=== PATIENT | male | born 1950 | race Caucasian/White ===

== ENCOUNTER → 2017-09-19 06:55 | Outpatient (CLI) | payer MEDICARE, SELFPAY ==
[2017-09-19 08:33] LABS: AST(SGOT) 15 U/L (15-37); Alanine Aminotransfer ALT/SGPT 29 U/L (16-61); Alkaline Phosphatase 48 U/L (45-117); Bilirubin, Direct 0.14 mg/dL (0.00-0.30); Cholesterol 218 mg/dL (200); Globulin 3.5 g/dL (2.2-4.2); High Density Lipoprotein 40 mg/dL; Protein, Total 7.5 g/dL (6.4-8.2); Triglycerides 265 mg/dL; Very Low Density Lipoprotein 53 mg/dL (5-40)
== END ==
PROVIDERS: Visit Provider Internal Medicine Cardiovascular Disease
DX: R94.31 Abnormal electrocardiogram [ECG] [EKG] (principal); R01.1 Cardiac murmur, unspecified; I34.0 Nonrheumatic mitral (valve) insufficiency; I10 Essential (primary) hypertension
CPT/HCPCS: 36415; 80061; 80076

== ENCOUNTER → 2018-06-06 07:39 | Outpatient (CLI) | payer MEDICARE, SELFPAY ==
[2018-06-06 09:09] LABS: AST(SGOT) 18 U/L (15-37); Alanine Aminotransfer ALT/SGPT 30 U/L (16-61); Alkaline Phosphatase 46 U/L (45-117); Bilirubin, Direct 0.17 mg/dL (0.00-0.30); Cholesterol 214 mg/dL (200); Globulin 3.5 g/dL (2.2-4.2); High Density Lipoprotein 37 mg/dL; Protein, Total 7.5 g/dL (6.4-8.2); Triglycerides 242 mg/dL; Very Low Density Lipoprotein 48 mg/dL (5-40)
--- OUTSIDE RECORDS SUMMARY | 2018-08-10 14:41 | XMS RPT_ITS ---
:1950 Author Organization OH[facility] Care Team Providers Name Role Phone CARLTON CARDONA (PA) Attending Unavailable JUAN MANUEL DAMON Admitting Unavailable JUAN MANUEL DAMON Attending Unavailable CARLTON CARDONA (KIRBY) Referring Unavailable Dario Oh Attending Unavailable Dario Oh Referring Unavailable Primay Care Physicia, No Primary Care Unavailable Kavita Hanna Attending Unavailable Dario Oh Attending Unavailable Dario Oh Referring Unavailable Primay Care Physicia, No Primary Care Unavailable Dario Oh Attending Unavailable Primay Care Physicia, No Referring Unavailable Primay Care Physicia, No Primary Care Unavailable Dario Oh Attending Unavailable Primay Care Physicia, No Referring Unavailable PROBLEMS PROBLEMS DATE TYPE CONDITION / CODE ATTENDING STATUS SOURCE 06/12/2018 Unknown E78.5 - Dario Oh Active Da Hyperlipidemia, Community unspecified / Hospital E78.5(ICD-10) Repository 06/12/2018 Unknown I10 - Essential Dario Oh (primary) Community hypertension / Hospital I10(ICD-10) Repository 06/12/2018 Unknown R01.1 - Cardiac Dario Oh murmur, Community unspecified / Hospital R01.1(ICD-10) Repository 11/29/2017 Active Encounter for NELSON, Active [facility] screening for JUAN MANUEL T [facility] [place] malignant neoplasm Repository of colon / Z12.11(ICD-10) PROCEDURES PROCEDURES No Procedure Records FoundRESULTS RESULTS CARDIOLOGY VISIT Observed: 06/12/2018 Status: F Source: [place] 2:[place] [facility] [place] [facility] [address] [place] [address] OFFICE VISIT Date of Service: 06/12/18 MR#: [id number] Acct: [id number] Name: CAROLANN MARTIN Jr. Rep #: [id number] : 1950 Provider: Dario Oh MD Age/Sex: 68/M Location: [facility] [place] Status: Signed HPI HPI Chief Complaint: Routine f/u Details: Details: Mr. Martin is a very pleasant 68-year-old nondiabetic, lifelong nonsmoker, drinks about 2 glasses wine every evening for several years, occasional marijuana use, occasional valerian root tea user in the evening, no previous known cardiac history. Patient also has a long-standing history of anxiety but has not required medical therapy. Patient reported that he had elevated blood pressure the week of 10/26/15. This precipitated a visit to the emergency room where his blood pressure was found to be 200/100 and heart rate of 99. Patient was scheduled for follow-up. Prior to this he underwent a 2-D echo with Doppler which demonstrated normal LV function with mild eccentric mitral regurgitation, mild to moderate tricuspid regurgitation with an RVSP of 36 mmHg. There are no previous echoes from the past. His EKG as of 10/15/15 showed normal sinus rhythm with nonspecific ST segment flattening in the anterolateral leads. On further history his mother has with a history of hypertension and a PCI, father has age 72 and had hypertension. No other coronary disease in his family that he knows of. Patient underwent echocardiogram on 10/27/15 which showed an EF of 65% With 1+ eccentric mitral regurgitation. From a cardiac standpoint he denies any exertional chest pain, angina, shortness of breath, change in his exercise capacity, dyspnea on exertion, or lower extremity edema. He is taking and tolerating his lisinopril well, and his blood pressures at home range between 116 and 126 systolic. his murmur is much less pronounced today most likely due to more optimize blood pressure. His echocardiogram dated 01/23/17 showed normal LV function with an EF of 65%, trivial aortic insufficiency, normal RVSP. Her last visit, the patient has been doing very well. He denies any chest pain, angina, shortness of breath or dyspnea on exertion. He has markedly cut down on his drinking red wine, and is trying to get into exercise. Patient has been taking his blood pressures at home which have ranged between 119 and 128 systolic with a heart rate of 57-63. In our office today his blood pressure is 160/80, pulse is 64 and regular. His blood pressures at home run in the 110s to 125 systolic. His physical exam demonstrates a 2/6 holosystolic murmur best heard at radiating to the axilla. There is some radiation of this murmur into the carotids as well. He has no edema. His lipids as of 11/11/15 shhowing LDL of 106 and HDL of 44. His lipids as of 09/19/17 show an HDL of 40 and an LDL of 125. Glycerides were also to 265 consistent with alcohol use. Lipids as of 06/06/18 show an HDL of 37 and an LDL of 129. Intake Vital Signs06/12/18 Height 5 ft 3 in 06/12/18 Weight: 149 lb 6 oz 06/12/18 Body Mass Index (BMI) 26.4 06/12/18 Blood Pressure 160/80 H Intake Visit Reasons: 6 M Fitting Room Maintenance Mechanic Required: No Is patient in pain?: No Allergies No Known Allergies Allergy (Verified 06/12/18 14:24) Medications carvedilol 6.25 mg tablet 6.25 mg PO BID #180 tab 04/07/18 [Rx Confirmed 06/11/18] lisinopril 20 mg-hydrochlorothiazide 12.5 mg tablet 1 tab PO QDAY #90 tab 04/07/18 [Rx Confirmed 06/11/18] [facility] Medical History Hyperlipidemia (Chronic) Hypertension (Chronic) Cardiac murmur, unspecified (Chronic) Palpitations (Resolved) Surgical History History of hernia repair (Resolved) Family History Father CVA (cerebral vascular accident) Hypertension Mother CAD (coronary artery disease) Hypertension Myocardial infarction Social History Smoking Status: Never smoker alcohol intake: current ROS Const Const: Positive for other (Feels well); negative for fatigue, weakness, body ache, fever(s), headache(s), chills, frequent falls, night sweats, daytime sleepiness, difficulty sleeping, excessive sweating, weight gain, weight loss, increased appetite, poor appetite or anorexia Eyes Eyes: Negative for blind spots, loss of peripheral vision, transient loss of vision, blurry vision, change in vision, double vision, floaters, tunnel vision or other ENT ENT: Negative for headache(s), dizziness, hearing loss, tinnitus, Nosebleed/epistaxis, balance problems, post nasal drip, lip swelling, tongue swelling, bleeding gums, hoarseness, neck pain, dry mouth or other Cardio Chest Pain: No Palpitations: No Edema: None Muscle aches with walking: None Resp Respiratory: Negative for SOB with activity, SOB at rest, SOB orthopnea\SOB lying down, Cough, Coughing up blood/hemoptysis, chest congestion, pain on inspiration, snoring, stridor, wheezing, crackles, paroxysmal nocturnal dyspnea or other GI GI: Negative nausea, vomiting, heartburn, constipation, belching, bloating, cramping, vomiting blood/hematemesis, bright, red blood in stools, black,tarry stools, loose stools, Difficulty Swallowing or other : Negative for hematuria, frequent nighttime urination/ nocturia, erectile dysfunction or abnormal vaginal bleeding Musc Musc: Negative for balance problems, muscle aches/ myalgia, muscle weakness or joint pain Skin Skin: Negative redness, non-healing lesions, rash, unusual bruising, skin ulcer, wounds, jaundice or other Neuro Neuro: Negative for weakness, headache(s), frequent falls, blurry vision, double vision, dizziness, lightheadedness, near syncope, syncope, orthostatic symptoms, confusion, memory loss, restless legs, vertigo, seizures, lack of coordination or other Leonidas Hematologic/Lymphatic: Negative for easy bleeding, easy bruising, enlarged lymph nodes or other Endo Endo: Negative for fatigue, excessive sweating, cold intolerance, heat intolerance, flushing, increased thirst/drinking, increased hunger, hair loss, hair growth or other Psych Psych: Negative for anxiety, depression, thoughts of harming anyone, thoughts of harming yourself, visual hallucinations, panic attacks or audible hallucinations Allergy Allergy/Immunology: Negative for lip swelling, Negative for tongue swelling, Negative for rash, Negative for throat swelling, Negative for hives Cardiology Exam Const Appearance: cooperative, healthy appearing and no acute distress Nutritional Appearance: well nourished Orientation: alert, oriented x3 and oriented to person Head Head: normal to inspection, atraumatic and normocephalic Nose: external nose normal Face and Sinus: face symmetric Mouth: oral mucosae normal Eyes General: appearance normal, both eyes and all related structures Eyelids: eyelids normal Conjunctivae: conjunctivae normal Pupils: PERRL and normal by confrontation EOM: EOM intact bilaterally Neck Neck: normal visual inspection and full ROM Carotids: normal carotid upstroke Chest Chest inspection: normal inspection of the chest Auscultation: Bilateral: Clear to Auscultation Cardio Palpation: normal PMI Rate: regular rate Rhythm: regular rhythm Heart sounds: S1 normal and S2 normal GI GI: normal to inspection, no hepatosplenomegaly and bowel sounds present Neuro General: alert, oriented x3, awake, CN's II-XI intact bilaterally and moves all extremities Skin Skin: no rashes or lesions noted Extremities Pulses: Normal: Right Femoral Pulse, Left Femoral Pulse, Right Dorsalis Pedis Pulse, Left Dorsalis Pedis Pulse, Right Posterior Tibial Pulse, Left Posterior Tibial Pulse, Right Radial Pulse, Left Radial Pulse Lower Extremity Edema: None: Bilateral Psych Psychological: normal affect Assessment AND Plan 1. Hypertension I10 Plan 1. Hypertension: Patient's blood pressure is fairly well- controlled at home however when he is anxious, or comes to the doctor's office it is always elevated. In addition he has a positive family history of coronary artery disease in both his mother and father although they were both smokers. In addition he has hypercholesterolemia. The patient wishes to begin an exercise program in earnest in order to lower his LDL and raise his HDL. In order to make sure that he is safe to do that from a hypertensive as well as an ischemic standpoint, I recommended he undergo a treadmill echocardiogram. If this is grossly abnormal for ischemia, he may require diagnostic coronary angiogram. In addition of his blood pressure is markedly elevated during exercise, I would recommend increasing his Coreg to 12.5 mg p.o. daily, or increasing his Zestoretic to 40/25 mg a day. If the patient's stress test is negative, I recommend he continue to exercise in a harness noted to assist with hypertension and hypercholesterolemia. Orders Orders: 2. Hyperlipidemia E78.5 Plan 2. Hyperlipidemia: After a long and thorough discussion about the benefits of statin based medications for his hypercholesterolemia and his family history, the patient once again declines statin based medication and wishes to treat this with dietary habits and exercise. I believe this is reasonable to try it for a period of 6 months time, and then recheck it. If his LDL still greater than 130, would recommend statin based medication such as Crestor to lower his LDL and increase his HDL. 3. Return office in 6 months. This note was generated using a voice recognition system and there may be incorrect words, spelling or punctuation that were not noted when reviewing the office note prior to saving. Orders Orders: Plan Detail Other Orders Orders: Follow Up +6M (Adriano) Coding Level of Care Code Off vis,est,level 3 Diagnoses Hypertension I10 Hyperlipidemia E78.5 Coding Level of Care Code Off vis,est,level 3 Diagnoses Hypertension I10 Hyperlipidemia E78.5 Supplemental Info Supplemental Information Labs LDL Cholesterol 129 mg/dL (0-130) 06/06/18 HDL Cholesterol 37 mg/dL (40-) L 06/06/18 Triglycerides 242 mg/dL (-199) H 06/06/18 VLDL Cholesterol 48 mg/dL (5-40) H 06/06/18 Diagnostics Chest X-Ray 10/15/15 06/12/18 1443 <Electronically signed by Dario Oh MD> Date Dario Oh MD Cosigner Signature: Date (if applicable) CC: LIVER PROFILE Collected: 06/06/2018 Status: F Source: [place] 7:[place] [facility] [place] TYPE CODE TESTS RESULT OUT OF RANGE REFERENCE UNITS LAB L501.1500 6.4-8.2 g/dL Normal T PROT 7.5 LAB L501.1800 3.2-5.0 g/dL Normal ALB 4.0 LAB L501.1950 2.2-4.2 g/dL Normal GLOB 3.5 LAB L501.4100 15-37 U/L Normal AST 18 LAB L501.4305 45-117 U/L Normal ALK P 46 LAB L501.4405 16-61 U/L Normal ALT 30 LAB L501.4600 0.20-1.00 mg/dL Normal T BILI 0.90 LAB L501.4700 0.00-0.30 mg/dL Normal D BILI 0.17 Performed By: #### L500.3400, L500.4100 #### [facility] [address] [place], [place], [id number] LIPID PROFILE Collected: 06/06/2018 Status: F Source: [place] 7:43 AM [facility] [place] TYPE CODE TESTS RESULT OUT OF RANGE REFERENCE UNITS LAB L501.4900 200 mg/dL High CHOL 214 Result Comment: <200 mg/dL Desirable 200-240 mg/dL Borderline >240 mg/dL High Risk LAB L501.5000 mg/dL High TRIG 242 Result Comment: The drugs N-Acetylcysteine and Metamizole may falsely depress this assay. Serum Triglycerides Reference Interval Normal <150 mg/dL Borderline high 150 - 199 mg/dL High 200 - 499 mg/dL Very High > or = 500 mg/dL LAB L501.6400 mg/dL Low HDL 37 Result Comment: The drugs N-Acetylcysteine and Metamizole may falsely depress this assay. Reference Range HDL <40 mg/dL Low HDL Cholesterol HDL >or= 60 mg/dL High HDL Cholesterol LAB L501.6500 0-130 mg/dL Normal LDL 129 LAB L501.6600 5-40 mg/dL High VLDL 48 Performed By: #### L500.3400, L500.4100 #### [facility] [address] [place], [place], [address] NURSING PROG Observed: 11/29/2017 Status: COMPLETED Source: [facility] 12:45 PM [facility] REPOSITORY HNO ID: [id number] Author: Rosario Adame RN Service: (none) Author Type: Registered Nurse Type: Nursing Progress Note Filed: 11/29/2017 1:08 PM Note Text: Patient did not experience a fall prior to discharge. Patient did not experience a burn prior to discharge. Rosario Adame RN PT ED Observed: 11/29/2017 Status: COMPLETED Source: [facility] 12:40 PM [facility] REPOSITORY HNO ID: [id number] Author: Rosario Adame RN Service: (none) Author Type: Registered Nurse Type: Patient Education Filed: 11/29/2017 1:08 PM Note Text: POST OP LEARNING RESPONSE INSTRUCTION PROVIDED TO: Patient METHOD OF INSTRUCTION: Individual instruction Written instruction - handouts Verbal instruction PATIENT / FAMILY RESPONSE: Information received as demonstrated by interest and questions FOLLOW-UP PLAN: Follow up phone call. Contact information given. SUPPLEMENTAL MATERIAL: Procedure discharge instructions REFERRAL (RECOMMENDATION): None Electronically Signed By: Rosario Adame RN In Department: AMBULATORY SURGERY NURSING PROG Observed: 11/29/2017 Status: COMPLETED Source: [facility] 12:07 PM [facility] REPOSITORY HNO ID: [id number] Author: Rosario Adame RN Service: (none) Author Type: Registered Nurse Type: Nursing Progress Note Filed: 11/29/2017 12:15 PM Note Text: Arrived in phase II via cart. Left lateral position. Sedated, but responds to verbal stimuli. Color normal; skin warm and dry. Respirations wnl and unlabored. Abdomen soft and with + bowel sounds in quads X 4. Family at bedside. Patient resting comfortably. Dr. Damon at bedside to review procedure and recommendations. Rosario Adame RN NURSING PROG Observed: 11/29/2017 Status: COMPLETED Source: [facility] 12:06 PM [facility] REPOSITORY HNO ID: [id number] Author: Joann Gallagher RN Service: Nursing Author Type: Registered Nurse Type: Nursing Progress Note Filed: 11/29/2017 12:06 PM Note Text: Patient did not experience a fall within the Intraoperative area. Patient did not experience a burn within the Intraoperative area. Joann Blough, RN NURSING PROG Observed: 11/29/2017 Status: COMPLETED Source: [facility] 11:44 AM [facility] REPOSITORY HNO ID: [id number] Author: Rosario AwanRn) JOSE Adame Service: (none) Author Type: Registered Nurse Type: Nursing Progress Note Filed: 11/29/2017 11:44 AM Note Text: [facility] PRE-OP NURSING HAND OFF NOTE SBAR Hand off given to Joann Gallagher RN. Hand off was communicated verbally and at the patient's bedside and all questions were answered. FALLS/TAPIA Patient did not experience a fall within the Preoperative area. Patient did not experience a burn within the Preoperative area. Rosario Adame RN HISTORY PHYSICAL Observed: 11/29/2017 Status: COMPLETED Source: [facility] 11:36 AM [facility] REPOSITORY HNO ID: [id number] Author: Juan Manuel Damon Service: General Surgery Author Type: Physician Type: HANDP Filed: 11/29/2017 11:36 AM Note Text: HISTORY AND PHYSICAL ? Carolann Martin 1950 ? REFERRING PHYSICIAN: Self ? CHIEF COMPLAINT: family history of colon cancer ? HPI: The patient is a 67 year old male referred for endoscopy. Carolann notes a family history of colon cancer. Most recent colonoscopy was performed by Dr. Yost in 2008 with 5-year follow-up recommended at that time. Patient denies any change in bowel habits, weight changes, blood in stools, black tarry stools or abdominal pain. Denies any upper GI complaints. ? Past medical history is significant for mitral valve regurgitation, initially diagnosed a few years ago when he was being evaluated for palpitations. Patient follows with Dr. Oh for this, has had echocardiogram performed and was started on antihypertensives. Patient monitors BP at home which typically runs in 120s/70s. This is noted to be elevated today in office at 180/100 and patient notes he has a history of white coat syndrome and blood pressure is almost always high at office visits, states Dr. Oh aware of this. He denies any headaches or dizziness. Denies chest pain, shortness of breathor recent hospitalization. Denies problems with sedation. ? ? PAST MEDICAL HISTORY PAST MEDICAL HISTORY Diagnosis Date - FAMILY HX GI MALIGNANCY ? - INT HEMORRHOID W/O COMPL ? - PMH - PAST MEDICAL HISTORY OF ? ? White coat hypertension ? ? PAST SURGICAL HISTORY PAST SURGICAL HISTORY Procedure Laterality Date - COLONOSCOP W/ OR W/O [facility] SPEC ? 08/16/08 ? Colonoscopy - REPAIR ING HERNIA,5+Y/O,REDUCIBL ? 1999 ? Hernia repair, inguinal ? CURRENT MEDICATIONS ? Current Outpatient Prescriptions: carvedilol (COREG) 6.25 mg tablet ? lisinopril-hydrochlorothiazide (PRINZIDE,ZESTORETIC) 20-12.5 mg per tablet ? peg 3350-Electrolytes (GOLYTELY) 236-22.74-6.74 -5.86 gram suspension Take 4,000 mL by mouth one time only for 1 dose. ? No current facility-administered medications for this visit. ? ALLERGIES: Patient has no known allergies. ? PERSONAL HISTORY: SOCIAL HISTORY Social History Marital status: Domestic Partner Spouse name: Years of education: Number of children: ? Social History Main Topics Smoking status: Never Smoker ? Alcohol use: Yes 10.5 oz/week Glasses of Wine (5oz): 7 per week Drug use: No ? FAMILY HISTORY: FAMILY HISTORY FAMILY HISTORY Problem Relation Age of Onset - Cancer Mother ? ? ? Colon - Cancer Maternal Uncle ? ? ? Colon - Coronary Artery Disease Mother ? - COPD Mother ? - Stroke Father ? ? ? REVIEW OF SYMPTOMS: The review of systems data was entered by the nurse and reviewed by me ? Nursing Notes: Wendie Long LPN 10/28/2017 8:01 AM Signed REVIEW OF SYSTEMS: General: The patient denies fatigue, denies weight loss, denies weight gain, denies feeling hot, and denies feelings of cold. Eyes: The patient denies glaucoma, denies eye injury/surgery, does not wear glasses or contacts. Ear/Nose/Throat: The patient denies allergies, denies hayfever, denies ear infections, and denies bloody noses. Cardiovascular: The patient denies chest pain, denies heart disease, NOTES high blood pressure,denies cardiac stent, denies prior heart attack, denies irregular heart beat, denies high cholesterol, denies poor circulation, denies heart failure, other cardiac issues, denies claudication, denies cold feet, denies peripheral arterial stent. Respiratory: The patient denies tuberculosis, denies pneumonia, denies frequent cough, denies pulmonary embolism, denies shortness of breath, and denies coughing up blood. Gastrointestinal: The patient denies difficulty swallowing, denies acid reflux, denies ulcers, denies vomiting, denies jaundice/hepatitis, denies gallbladder problems, denies black or tarry stools, denies hemorrhoids, denies bleeding from rectum, denies diverticulitis, denies constipation, denies diarrhea, denies loss of stool control, and NOTES hernias. Kidney/Bladder: The patient denies kidney stones, denies urine infections, and denies bloody urine. Skin: The patient denies a history of skin cancer, denies bleeding/changing moles, and denies a history of skin rash. Neurologic: The patient denies a history of epilepsy/convulsions, denies headaches, denies head/spinal injuries, and denies stroke/TIA. Psychiatric: The patient denies psychiatric medications, denies depression, and denies voices, denies substance abuse. Endocrine: The patient denies thyroid disorders, denies diabetes, and denies hormonal problems. Hematologic: The patient denies a history of bruising, denies bleeding, and denies anemia, denies blood clots. Infections: The patient NOTES a history of measles and mumps, denies rheumatic fever, and NOTES sexually transmitted diseases. Musculoskeletal: The patient denies back pain/injury, denies back problems, denies sciatica, denies knee/foot trouble, denies arthritis, or denies gout. ? ? When was patient's last Mammogram screening? N/A ? Last Colonoscopy: 2008 [place] ? Wendie Long LPN ? Wendie Long LPN 10/28/2017 8:24 AM Signed BP recheck 178/94. Patient does have documented elevated BP and is following up with cardiology. Patient does home BP checks which are normal. I have confirmed and edited as necessary, the PFSH and ROS obtained by others. ? PHYSICAL EXAMINATION: ? General: The patient is 67 year old male, well nourished, well hydrated in no acute distress. The patient is oriented to time, place, and person. ? VITALS: Blood pressure 184/102, pulse 60, weight 69.4 kg (153 lb). Body mass index is 27.1 kg/m?. ? HEENT: Normal cephalic, ataumatic, pupils are equally round, sclera are anicteric, mucous membranes are moist, oropharynx is clear. Neck has no masses, asymmetry or lymphadenopathy. ? Respiratory: Clear to auscultation and percussion. Normal respiratory excursion and pattern. ? Cardiac: Examination is regular rate and rhythm. ? Abdominal exam: Soft, nontender, with no palpable masses. No hepatosplenomegaly. No palpable hernias. ? Rectal exam: exam deferred ? Extremities: no clubbing, cyanosis or edema. No adenopathy. ? Other: ? LABORATORY VALUES: As Noted ? RADIOLOGIC STUDIES: As Noted ? Assessment IMPRESSION: encounter for screening colonoscopy. White coat hypertension ? PLAN: We will plan for lower endoscopy. We discussed the risks and benefits of the planned endoscopy. I have informed the patient that complications can occur including failure to complete the endoscopy and perforation. The patient had the opportunity to ask questions concerning the planned endoscopy. My staff has also explained the procedure to the patient in understandable terms and has given the patient printed material concerning the procedure. The patient freely consents to surgery. ? I plan to use golytely bowel preparation for endoscopy ? Elevated BP noted today on two readings. Epic lists past history of white coat syndrome. Patient notes he has had this for many years. He checks BP at home, has a machine that takes his blood pressure three times and gives an average reading. He brings with him a list of recent readings which are in lhc454p/70s. This information forwarded to surgeon for review. ? Diagnoses: (Z12.11) Encounter for screening for malignant neoplasm of colon (primary encounter diagnosis) (I10) White coat syndrome with hypertension ? Return to Clinic: The patient is instructed to follow-up with me 1 week post operatively. ? ? Carlton Cardona PA-C PT ED Observed: 11/29/2017 Status: COMPLETED Source: [facility] 11:17 AM [facility] REPOSITORY O ID: [id number] Author: Rosario Gomze) JOSE Adame Service: (none) Author Type: Registered Nurse Type: Patient Education Filed: 11/29/2017 11:17 AM Note Text: Discharge Instructions were reviewed pre-operatively with the patient. All questions and concerns were addressed. Rosario Adame RN PRE OP LEARNING ASSESSMENT PROCEDURE/SURGERY: GI PROCEDURES: Colonoscopy READINESS TO LEARN COGNITIVE ABILITY: Alert and oriented MOTIVATION TO LEARN: Interested FAMILY SUPPORT: Unable to assess - Family not present PATIENT LEARNS BEST BY: Multiple Methods FACTORS AFFECTING LEARNING: None PHYSICAL LIMITATIONS AFFECTING LEARNING: None Electronically Signed By: Rosario Adame RN In Department: AMBULATORY SURGERY SURGICAL PATHOLOGY Observed: 11/29/2017 Status: F Source: [facility] 12:00 AM [facility] REPOSITORY Specimen originated from [facility] Specimen #: [id number] Submitting Physician: JUAN MANUEL DAMON ([id number]) FINAL DIAGNOSIS 1. Colon polyp at 20 cm, biopsy (A) - Tubular adenoma. 2. Rectal polyp, biopsy (B) - Fragments of tubular adenoma. IG/gilda 12/02/2017 Dhruv Hanna M.D., Ph.D. (Electronic Signature) SPECIMEN SUBMITTED A: COLON, POLYP AT 20CM B: RECTAL POLYP CLINICAL DATA Z12.11 A) HOT BX FORCEPS B) HOT SNARE GROSS DESCRIPTION A. Received in formalin is one piece of decker, soft tissue measuring 0.3 x 0.2 x 0.2 cm. Totally submitted in one cassette. B. Received in formalin is a segment of decker polypoid tissue measuring 0.6 x 0.3 x 0.4 cm. No stalk is noted. The line of resection is noted. The specimen is bisected and totally submitted in cassette B1. Also received in the same container is one piece of decker, soft tissue measuring 0.4 x 0.2 x 0.1 cm. Totally submitted in cassette B2. Gross examination performed at [facility], [address] [place] [address] 11/30/2017 12:39:12 AM Date of Report: 12/02/2017 Date of Procedure: 11/29/2017 Date of Receipt: 11/29/2017 Submitted by: JUAN MANUEL DAMON ([email or web address]) Location: W010 Diagnostic interpretation performed at [facility], [address], [facility] [address]. PROGRESS Observed: 10/28/2017 Status: COMPLETED Source: [facility] 2:48 PM [facility] REPOSITORY HNO ID: [id number] Author: Carlton Cardona (Pa) Service: (none) Author Type: Physician [place] Laborer Type: Progress Notes Filed: 10/28/2017 3:04 PM Note Text: HISTORY AND PHYSICAL Carolann Martin 1950 REFERRING PHYSICIAN: Self CHIEF COMPLAINT: family history of colon cancer HPI: The patient is a 67 year old male referred for endoscopy. Carolann notes a family history of colon cancer. Most recent colonoscopy was performed by Dr. Yost in 2008 with 5-year follow-up recommended at that time. Patient denies any change in bowel habits, weight changes, blood in stools, black tarry stools or abdominal pain. Denies any upper GI complaints. Past medical history is significant for mitral valve regurgitation, initially diagnosed a few years ago when he was being evaluated for palpitations. Patient follows with Dr. Oh for this, has had echocardiogram performed and was started on antihypertensives. Patient monitors BP at home which typically runs in 120s/70s. This is noted to be elevated today in office at 180/100 and patient notes he has a history of white coat syndrome and blood pressure is almost always high at office visits, states Dr. Oh aware of this. He denies any headaches or dizziness. Denies chest pain, shortness of breathor recent hospitalization. Denies problems with sedation. PAST MEDICAL HISTORY Diagnosis Date - FAMILY HX GI MALIGNANCY - INT HEMORRHOID W/O COMPL - PMH - PAST MEDICAL HISTORY OF White coat hypertension PAST SURGICAL HISTORY Procedure Laterality Date - COLONOSCOP W/ OR W/O [facility] SPEC 08/16/08 Colonoscopy - REPAIR ING HERNIA,5+Y/O,REDUCIBL 2000 Hernia repair, inguinal Current Outpatient Prescriptions: carvedilol (COREG) 6.25 mg tablet lisinopril-hydrochlorothiazide (PRINZIDE,ZESTORETIC) 20-12.5 mg per tablet peg 3350-Electrolytes (GOLYTELY) 236-22.74-6.74 -5.86 gram suspension Take 4,000 mL by mouth one time only for 1 dose. No current facility-administered medications for this visit. ALLERGIES: Patient has no known allergies. PERSONAL HISTORY: Social History Marital status: Domestic Partner Spouse name: Years of education: Number of children: Social History Main Topics Smoking status: Never Smoker Alcohol use: Yes 10.5 oz/week Glasses of Wine (5oz): 7 per week Drug use: No FAMILY HISTORY: FAMILY HISTORY Problem Relation Age of Onset - Cancer Mother Colon - Cancer Maternal Uncle Colon - Coronary Artery Disease Mother - COPD Mother - Stroke Father REVIEW OF SYMPTOMS: The review of systems data was entered by the nurse and reviewed by sc Nursing Notes: Wendie Long LPN 10/28/2017 8:01 AM Signed REVIEW OF SYSTEMS: General: The patient denies fatigue, denies weight loss, denies weight gain, denies feeling hot, and denies feelings of cold. Eyes: The patient denies glaucoma, denies eye injury/surgery, does not wear glasses or contacts. Ear/Nose/Throat: The patient denies allergies, denies hayfever, denies ear infections, and denies bloody noses. Cardiovascular: The patient denies chest pain, denies heart disease, NOTES high blood pressure,denies cardiac stent, denies prior heart attack, denies irregular heart beat, denies high cholesterol, denies poor circulation, denies heart failure, other cardiac issues, denies claudication, denies cold feet, denies peripheral arterial stent. Respiratory: The patient denies tuberculosis, denies pneumonia, denies frequent cough, denies pulmonary embolism, denies shortness of breath, and denies coughing up blood. Gastrointestinal: The patient denies difficulty swallowing, denies acid reflux, denies ulcers, denies vomiting, denies jaundice/hepatitis, denies gallbladder problems, denies black or tarry stools, denies hemorrhoids, denies bleeding from rectum, denies diverticulitis, denies constipation, denies diarrhea, denies loss of stool control, and NOTES hernias. Kidney/Bladder: The patient denies kidney stones, denies urine infections, and denies bloody urine. Skin: The patient denies a history of skin cancer, denies bleeding/changing moles, and denies a history of skin rash. Neurologic: The patient denies a history of epilepsy/convulsions, denies headaches, denies head/spinal injuries, and denies stroke/TIA. Psychiatric: The patient denies psychiatric medications, denies depression, and denies voices, denies substance abuse. Endocrine: The patient denies thyroid disorders, denies diabetes, and denies hormonal problems. Hematologic: The patient denies a history of bruising, denies bleeding, and denies anemia, denies blood clots. Infections: The patient NOTES a history of measles and mumps, denies rheumatic fever, and NOTES sexually transmitted diseases. Musculoskeletal: The patient denies back pain/injury, denies back problems, denies sciatica, denies knee/foot trouble, denies arthritis, or denies gout. When was patient's last Mammogram screening? N/A Last Colonoscopy: 2008 Priyank Long LPN 10/28/2017 8:24 AM Signed BP recheck 178/94. Patient does have documented elevated BP and is following up with cardiology. Patient does home BP checks which are normal. I have confirmed and edited as necessary, the PFSH and ROS obtained by others. PHYSICAL EXAMINATION: General: The patient is 67 year old male, well nourished, well hydrated in no acute distress. The patient is oriented to time, place, and person. VITALS: Blood pressure 184/102, pulse 60, weight 69.4 kg (153 lb). Body mass index is 27.1 kg/m?. HEENT: Normal cephalic, ataumatic, pupils are equally round, sclera are anicteric, mucous membranes are moist, oropharynx is clear. Neck has no masses, asymmetry or lymphadenopathy. Respiratory: Clear to auscultation and percussion. Normal respiratory excursion and pattern. Cardiac: Examination is regular rate and rhythm. Abdominal exam: Soft, nontender, with no palpable masses. No hepatosplenomegaly. No palpable hernias. Rectal exam: exam deferred Extremities: no clubbing, cyanosis or edema. No adenopathy. Other: LABORATORY VALUES: As Noted RADIOLOGIC STUDIES: As Noted Assessment IMPRESSION: encounter for screening colonoscopy. White coat hypertension PLAN: We will plan for lower endoscopy. We discussed the risks and benefits of the planned endoscopy. I have informed the patient that complications can occur including failure to complete the endoscopy and perforation. The patient had the opportunity to ask questions concerning the planned endoscopy. My staff has also explained the procedure to the patient in understandable terms and has given the patient printed material concerning the procedure. The patient freely consents to surgery. I plan to use golytely bowel preparation for endoscopy Elevated BP noted today on two readings. [facility] lists past history of white coat syndrome. Patient notes he has had this for many years. He checks BP at home, has a machine that takes his blood pressure three times and gives an average reading. He brings with him a list of recent readings which are in [id number]. This information forwarded to surgeon for review. Diagnoses: (Z12.11) Encounter for screening for malignant neoplasm of colon (primary encounter diagnosis) (I10) White coat syndrome with hypertension Return to Clinic: The patient is instructed to follow-up with me 1 week post operatively. LARS Chauhan Observed: 10/28/2017 Status: COMPLETED Source: [facility] 8:00 AM [facility] REPOSITORY Office Visit (GENSWS) CAROLANN MARTIN ([id number]) 1950 M Date Time Provider Department 10/28/17 8:00 AM CARLTON CARDONA) GENCAMS During your visit today, we recorded the following information about you: Pulse Blood pressure Weight 60/minute 184/102 69.4 kg Wendie Mercedes BALLARD 10/28/2017 8:01 AM Signed REVIEW OF SYSTEMS: General: The patient denies fatigue, denies weight loss, denies weight gain, denies feeling hot, and denies feelings of cold. Eyes: The patient denies glaucoma, denies eye injury/surgery, does not wear glasses or contacts. Ear/Nose/Throat: The patient denies allergies, denies hayfever, denies ear infections, and denies bloody noses. Cardiovascular: The patient denies chest pain, denies heart disease, NOTES high blood pressure,denies cardiac stent, denies prior heart attack, denies irregular heart beat, denies high cholesterol, denies poor circulation, denies heart failure, other cardiac issues, denies claudication, denies cold feet, denies peripheral arterial stent. Respiratory: The patient denies tuberculosis, denies pneumonia, denies frequent cough, denies pulmonary embolism, denies shortness of breath, and denies coughing up blood. Gastrointestinal: The patient denies difficulty swallowing, denies acid reflux, denies ulcers, denies vomiting, denies jaundice/hepatitis, denies gallbladder problems, denies black or tarry stools, denies hemorrhoids, denies bleeding from rectum, denies diverticulitis, denies constipation, denies diarrhea, denies loss of stool control, and NOTES hernias. Kidney/Bladder: The patient denies kidney stones, denies urine infections, and denies bloody urine. Skin: The patient denies a history of skin cancer, denies bleeding/changing moles, and denies a history of skin rash. Neurologic: The patient denies a history of epilepsy/convulsions, denies headaches, denies head/spinal injuries, and denies stroke/TIA. Psychiatric: The patient denies psychiatric medications, denies depression, and denies voices, denies substance abuse. Endocrine: The patient denies thyroid disorders, denies diabetes, and denies hormonal problems. Hematologic: The patient denies a history of bruising, denies bleeding, and denies anemia, denies blood clots. Infections: The patient NOTES a history of measles and mumps, denies rheumatic fever, and NOTES sexually transmitted diseases. Musculoskeletal: The patient denies back pain/injury, denies back problems, denies sciatica, denies knee/foot trouble, denies arthritis, or denies gout. When was patient's last Mammogram screening? N/A Last Colonoscopy: 2008 Priyank Long LPN 10/28/2017 8:24 AM Signed BP recheck 178/94. Patient does have documented elevated BP and is following up with cardiology. Patient does home BP checks which are normal. Carlton Cardona PA-C 10/28/2017 3:04 PM Signed HISTORY AND PHYSICAL Carolann Martin 1950 REFERRING PHYSICIAN: Self CHIEF COMPLAINT: family history of colon cancer HPI: The patient is a 67 year old male referred for endoscopy. Carolann notes a family history of colon cancer. Most recent colonoscopy was performed by Dr. Yost in 2008 with 5-year follow-up recommended at that time. Patient denies any change in bowel habits, weight changes, blood in stools, black tarry stools or abdominal pain. Denies any upper GI complaints. Past medical history is significant for mitral valve regurgitation, initially diagnosed a few years ago when he was being evaluated for palpitations. Patient follows with Dr. Oh for this, has had echocardiogram performed and was started on antihypertensives. Patient monitors BP at home which typically runs in 120s/70s. This is noted to be elevated today in office at 180/100 and patient notes he has a history of white coat syndrome and blood pressure is almost always high at office visits, states Dr. Oh aware of this. He denies any headaches or dizziness. Denies chest pain, shortness of breathor recent hospitalization. Denies problems with sedation. PAST MEDICAL HISTORY Diagnosis Date - FAMILY HX GI MALIGNANCY - INT HEMORRHOID W/O COMPL - PMH - PAST MEDICAL HISTORY OF White coat hypertension PAST SURGICAL HISTORY Procedure Laterality Date - COLONOSCOP W/ OR W/O [facility] SPEC 08/16/08 Colonoscopy - REPAIR ING HERNIA,5+Y/O,REDUCIBL 1999 Hernia repair, inguinal Current Outpatient Prescriptions: carvedilol (COREG) 6.25 mg tablet lisinopril-hydrochlorothiazide (PRINZIDE,ZESTORETIC) 20-12.5 mg per tablet peg 3350-Electrolytes (GOLYTELY) 236-22.74-6.74 -5.86 gram suspension Take 4,000 mL by mouth one time only for 1 dose. No current facility-administered medications for this visit. ALLERGIES: Patient has no known allergies. PERSONAL HISTORY: Social History Marital status: Domestic Partner Spouse name: Years of education: Number of children: Social History Main Topics Smoking status: Never Smoker Alcohol use: Yes 10.5 oz/week Glasses of Wine (5oz): 7 per week Drug use: No FAMILY HISTORY: FAMILY HISTORY Problem Relation Age of Onset - Cancer Mother Colon - Cancer Maternal Uncle Colon - Coronary Artery Disease Mother - COPD Mother - Stroke Father REVIEW OF SYMPTOMS: The review of systems data was entered by the nurse and reviewed by sc Nursing Notes: Wendie Long LPN 10/28/2017 8:01 AM Signed REVIEW OF SYSTEMS: General: The patient denies fatigue, denies weight loss, denies weight gain, denies feeling hot, and denies feelings of cold. Eyes: The patient denies glaucoma, denies eye injury/surgery, does not wear glasses or contacts. Ear/Nose/Throat: The patient denies allergies, denies hayfever, denies ear infections, and denies bloody noses. Cardiovascular: The patient denies chest pain, denies heart disease, NOTES high blood pressure,denies cardiac stent, denies prior heart attack, denies irregular heart beat, denies high cholesterol, denies poor circulation, denies heart failure, other cardiac issues, denies claudication, denies cold feet, denies peripheral arterial stent. Respiratory: The patient denies tuberculosis, denies pneumonia, denies frequent cough, denies pulmonary embolism, denies shortness of breath, and denies coughing up blood. Gastrointestinal: The patient denies difficulty swallowing, denies acid reflux, denies ulcers, denies vomiting, denies jaundice/hepatitis, denies gallbladder problems, denies black or tarry stools, denies hemorrhoids, denies bleeding from rectum, denies diverticulitis, denies constipation, denies diarrhea, denies loss of stool control, and NOTES hernias. Kidney/Bladder: The patient denies kidney stones, denies urine infections, and denies bloody urine. Skin: The patient denies a history of skin cancer, denies bleeding/changing moles, and denies a history of skin rash. Neurologic: The patient denies a history of epilepsy/convulsions, denies headaches, denies head/spinal injuries, and denies stroke/TIA. Psychiatric: The patient denies psychiatric medications, denies depression, and denies voices, denies substance abuse. Endocrine: The patient denies thyroid disorders, denies diabetes, and denies hormonal problems. Hematologic: The patient denies a history of bruising, denies bleeding, and denies anemia, denies blood clots. Infections: The patient NOTES a history of measles and mumps, denies rheumatic fever, and NOTES sexually transmitted diseases. Musculoskeletal: The patient denies back pain/injury, denies back problems, denies sciatica, denies knee/foot trouble, denies arthritis, or denies gout. When was patient's last Mammogram screening? N/A Last Colonoscopy: 2008 Priyank Long LPN 10/28/2017 8:24 AM Signed BP recheck 178/94. Patient does have documented elevated BP and is following up with cardiology. Patient does home BP checks which are normal. I have confirmed and edited as necessary, the PFSH and ROS obtained by others. PHYSICAL EXAMINATION: General: The patient is 67 year old male, well nourished, well hydrated in no acute distress. The patient is oriented to time, place, and person. VITALS: Blood pressure 184/102, pulse 60, weight 69.4 kg (153 lb). Body mass index is 27.1 kg/m?. HEENT: Normal cephalic, ataumatic, pupils are equally round, sclera are anicteric, mucous membranes are moist, oropharynx is clear. Neck has no masses, asymmetry or lymphadenopathy. Respiratory: Clear to auscultation and percussion. Normal respiratory excursion and pattern. Cardiac: Examination is regular rate and rhythm. Abdominal exam: Soft, nontender, with no palpable masses. No hepatosplenomegaly. No palpable hernias. Rectal exam: exam deferred Extremities: no clubbing, cyanosis or edema. No adenopathy. Other: LABORATORY VALUES: As Noted RADIOLOGIC STUDIES: As Noted Assessment IMPRESSION: encounter for screening colonoscopy. White coat hypertension PLAN: We will plan for lower endoscopy. We discussed the risks and benefits of the planned endoscopy. I have informed the patient that complications can occur including failure to complete the endoscopy and perforation. The patient had the opportunity to ask questions concerning the planned endoscopy. My staff has also explained the procedure to the patient in understandable terms and has given the patient printed material concerning the procedure. The patient freely consents to surgery. I plan to use golytely bowel preparation for endoscopy Elevated BP noted today on two readings. [facility] lists past history of white coat syndrome. Patient notes he has had this for many years. He checks BP at home, has a machine that takes his blood pressure three times and gives an average reading. He brings with him a list of recent readings which are in [id number]. This information forwarded to surgeon for review. Diagnoses: (Z12.11) Encounter for screening for malignant neoplasm of colon (primary encounter diagnosis) (I10) White coat syndrome with hypertension Return to Clinic: The patient is instructed to follow-up with me 1 week post operatively. Carlton Cardona PA-C Referring Provider: SELF [[id number]] Allergies As of Date: 10/28/2017 (No Known Allergies) Date Reviewed: 10/28/2017 Reviewed by: Wendie Long LPN - Fully Assessed Reason for Visit: family history of colon cancer [Other] Primary Visit Diagnosis:Encounter for screening for malignant neoplasm of colon [Z12.11] Other Visit Diagnosis:White coat syndrome with hypertension [I10] Order(s):COLONOSCOPY, SCREENING, HIGH RISK [[id number]] Order #: [id number] FUTURE peg 3350-Electrolytes (GOLYTELY) 236-22.74-6.74 - 5.86 gram suspensionTake 4,000 mL by mouth one time only for 1 dose.Disp: 1 BottleRfl: 0 Prescriptions as of 10/28/2017 Sig: CARVEDILOL 6.25 MG TABLET LISINOPRIL 20 MG-HYDROCHLOROT* PEG 3350-ELECTROLYTES 236 GRA* Take 4,000 mL by mouth one ti* Problem List As Of Date: 10/28/2017 (None) Visit Notes: >> Wendie Long LPN SatOct 28, 2017 8:01 AM Status: Signed REVIEW OF SYSTEMS: General: The patient denies fatigue, denies weight loss, denies weight gain, denies feeling hot, and denies feelings of cold. Eyes: The patient denies glaucoma, denies eye injury/surgery, does not wear glasses or contacts. Ear/Nose/Throat: The patient denies allergies, denies hayfever, denies ear infections, and denies bloody noses. Cardiovascular: The patient denies chest pain, denies heart disease, NOTES high blood pressure,denies cardiac stent, denies prior heart attack, denies irregular heart beat, denies high cholesterol, denies poor circulation, denies heart failure, other cardiac issues, denies claudication, denies cold feet, denies peripheral arterial stent. Respiratory: The patient denies tuberculosis, denies pneumonia, denies frequent cough, denies pulmonary embolism, denies shortness of breath, and denies coughing up blood. Gastrointestinal: The patient denies difficulty swallowing, denies acid reflux, denies ulcers, denies vomiting, denies jaundice/hepatitis, denies gallbladder problems, denies black or tarry stools, denies hemorrhoids, denies bleeding from rectum, denies diverticulitis, denies constipation, denies diarrhea, denies loss of stool control, and NOTES hernias. Kidney/Bladder: The patient denies kidney stones, denies urine infections, and denies bloody urine. Skin: The patient denies a history of skin cancer, denies bleeding/changing moles, and denies a history of skin rash. Neurologic: The patient denies a history of epilepsy/convulsions, denies headaches, denies head/spinal injuries, and denies stroke/TIA. Psychiatric: The patient denies psychiatric medications, denies depression, and denies voices, denies substance abuse. Endocrine: The patient denies thyroid disorders, denies diabetes, and denies hormonal problems. Hematologic: The patient denies a history of bruising, denies bleeding, and denies anemia, denies blood clots. Infections: The patient NOTES a history of measles and mumps, denies rheumatic fever, and NOTES sexually transmitted diseases. Musculoskeletal: The patient denies back pain/injury, denies back problems, denies sciatica, denies knee/foot trouble, denies arthritis, or denies gout. When was patient's last Mammogram screening? N/A Last Colonoscopy: 2008 Priyank Long LPN >> Wendie Long LPN SatOct 28, 2017 8:23 AM Status: Signed BP recheck 178/94. Patient does have documented elevated BP and is following up with cardiology. Patient does home BP checks which are normal. Prescriptions ordered this encounter Disp Refills Start End PEG 3350-ELECTROLYTES 236 GRAM-22.74* 1 Jasbir* 0 10/28/2017 10/28/2017 Route: ORAL Sig: Take 4,000 mL by mouth one time only for 1 dose. Follow-up and Disposition History Recorded Encounter Status:Closed by CARLTON CARDONA PA-C on 10/28/17 HOSP Observed: 10/28/2017 Status: COMPLETED Source: [facility] 12:00 AM [facility] RE[facility] Patient:Carolann Martin MRN: <[id number]> Height:5' 3(1.6 m) Weight:No patient weight recorded within the last 30 days. Outpatient Medications as of 11/29/17: carvedilol (COREG) 6.25 mg tablet lisinopril-hydrochlorothiazide (PRINZIDE,ZESTORETIC) 20-12.5 mg per tablet Admission/Clinic Administered Medications as of 11/29/17: lactated ringers infusion Problem List: No problem list on file for this patient. Allergies: No Known Allergies Date Verified:11/29/17 Lab Values No results within the last 30 days for the following basenames: K,HCT No progress notes entered within the past 30 days CARDIOLOGY VISIT Observed: 09/23/2017 Status: F Source: [place] [facility] [place] [facility] [address] [place] [address] OFFICE VISIT Date of Service: 09/23/17 MR#: [id number] Acct: [id number] Name: CAROLANN MARTIN Jr. Rep #: [id number] : 1950 Provider: Dario Oh MD Age/Sex: 67/M [place] [facility] [place] Status: Signed HPI HPI Chief Complaint: Routine f/u Details: Mr. Martin is a very pleasant 67-year-old nondiabetic, lifelong nonsmoker, drinks about 2 glasses wine every evening for several years, occasional marijuana use, occasional valerian root tea user in the evening, no previous known cardiac history. Patient also has a long-standing history of anxiety but has not required medical therapy. Patient reported that he had elevated blood pressure the week of 10/26/15. This precipitated a visit to the emergency room where his blood pressure was found to be 200/100 and heart rate of 99. Patient was scheduled for follow-up. Prior to this he underwent a 2-D echo with Doppler which demonstrated normal LV function with mild eccentric mitral regurgitation, mild to moderate tricuspid regurgitation with an RVSP of 36 mmHg. There are no previous echoes from the past. His EKG as of 10/15/15 showed normal sinus rhythm with nonspecific ST segment flattening in the anterolateral leads. On further history his mother has with a history of hypertension and a PCI, father has age 72 and had hypertension. No other coronary disease in his family that he knows of. Patient underwent echocardiogram on 10/27/15 which showed an EF of 65% With 1+ eccentric mitral regurgitation. From a cardiac standpoint he denies any exertional chest pain, angina, shortness of breath, change in his exercise capacity, dyspnea on exertion, or lower extremity edema. He is taking and tolerating his lisinopril well, and his blood pressures at home range between 116 and 126 systolic. his murmur is much less pronounced today most likely due to more optimize blood pressure. His echocardiogram dated 01/23/17 showed normal LV function with an EF of 65%, trivial aortic insufficiency, normal RVSP. Her last visit, the patient has been doing very well. He denies any chest pain, angina, shortness of breath or dyspnea on exertion. He has not really been exercising over the wintertime, and recently had a alcohol consumption over the weekend celebrating [facility]. In our office today his blood pressure is 180/80, pulse is 66 and regular. His blood pressures at home run in the 110s to 125 systolic. His physical exam demonstrates a 2/6 holosystolic murmur best heard at radiating to the axilla. There is some radiation of this murmur into the carotids as well. He has no edema. His lipids as of 11/11/15 shhowing LDL of 106 and HDL of 44. His lipids as of 09/19/17 show an HDL of 40 and an LDL of 125. Glycerides were also to 265 consistent with alcohol use. Intake Vital Signs09/23/17 Height 5 ft 3 in Intake Visit Reasons: 6 M FU Allergies No Known Allergies Allergy (Verified 10/26/15 04:40) Medications carvedilol 6.25 mg tablet 6.25 mg PO BID 09/20/17 [History Confirmed 09/23/17] lisinopril 20 mg-hydrochlorothiazide 12.5 mg tablet 1 tab PO QDAY 09/20/17 [History Confirmed 09/23/17] [facility] Medical History Hyperlipidemia (Chronic) Hypertension (Chronic) Cardiac murmur, unspecified (Chronic) Palpitations (Resolved) Surgical History History of hernia repair (Resolved) Family History Father CVA (cerebral vascular accident) Hypertension Mother CAD (coronary artery disease) Hypertension Myocardial infarction Social History Smoking Status: Never smoker alcohol intake: current ROS Const Const: Negative for fatigue, weakness, difficulty sleeping, frequent falls, headache(s) or excessive sweating Eyes Eyes: Negative for loss of peripheral vision, transient loss of vision, blurry vision or double vision ENT ENT: Negative for headache(s), dizziness, Nosebleed/epistaxis or balance problems Cardio Chest Pain: No Edema: None Muscle aches with walking: None Resp Respiratory: Negative for SOB with activity, SOB at rest, SOB orthopnea\SOB lying down or paroxysmal nocturnal dyspnea GI GI: Negative nausea or heartburn : Negative for hematuria Musc Musc: Negative for muscle aches/ myalgia, muscle weakness, joint pain or balance problems Skin Skin: Negative non-healing lesions, unusual bruising or rash Neuro Neuro: Negative for weakness, frequent falls, blurry vision, headache(s), dizziness, lightheadedness, orthostatic symptoms or double vision Leonidas Hematologic/Lymphatic: Negative for easy bruising Endo Endo: Negative for fatigue, excessive sweating or increased thirst/drinking Psych Psych: Negative for anxiety or depression Allergy Allergy/Immunology: Negative for hives, Negative for rash Cardiology Exam Const Appearance: cooperative, healthy appearing and no acute distress Nutritional Appearance: well nourished Orientation: alert, oriented x3 and oriented to person Head Head: normal to inspection, atraumatic and normocephalic Nose: external nose normal Face and Sinus: face symmetric Mouth: oral mucosae normal Eyes General: appearance normal, both eyes and all related structures Eyelids: eyelids normal Conjunctivae: conjunctivae normal Pupils: PERRL and normal by confrontation EOM: EOM intact bilaterally Neck Neck: normal visual inspection and full ROM Carotids: normal carotid upstroke Chest Chest inspection: normal inspection of the chest Auscultation: Bilateral: Clear to Auscultation Cardio Palpation: normal PMI Rate: regular rate Rhythm: regular rhythm Heart sounds: S1 normal and S2 normal GI GI: normal to inspection, no hepatosplenomegaly and bowel sounds present Neuro General: alert, oriented x3, awake, CN's II-XI intact bilaterally and moves all extremities Skin Skin: no rashes or lesions noted Extremities Pulses: Normal: Right Femoral Pulse, Left Femoral Pulse, Right Dorsalis Pedis Pulse, Left Dorsalis Pedis Pulse, Right Posterior Tibial Pulse, Left Posterior Tibial Pulse, Right Radial Pulse, Left Radial Pulse Lower Extremity Edema: None: Bilateral Psych Psychological: normal affect Assessment AND Plan 1. Hypertension I10 Plan 1. Hypertension: The patient's blood pressure is much better controlled at home with current medications. I Ulisses described him the linkage between alcohol use and hypertension as well as hypertriglyceridemia. I have advised the patient to increase his exercise in order to facilitate weight loss, triglyceride management, and blood pressure control. His blood pressures are very well controlled at home, so I would not adjust his antihypertensive medications at this time particular with respect to concerns about hypertriglyceridemia and the relationship between that and beta-blockers and hydrochlorothiazide. Would recommend repeat echocardiogram in a yearly basis which will take place around March 2018. Orders Orders: 2. Hyperlipidemia E78.5 Plan 2. Hyperlipidemia: His LDL cholesterol is fairly well-controlled given his risk factors. Hopefully this will improve with exercise and alcohol withdrawal. No indication for antilipid therapy at this time. 3. Return office in 6 months. This note was generated using a voice recognition system and there may be incorrect words, spelling or punctuation that were not noted when reviewing the office note prior to saving. Orders Orders: Plan Detail Other Orders Orders: Follow Up +6M (Adriano) Coding Level of Care Code Off vis,est,level 3 Diagnoses Hypertension I10 Hyperlipidemia E78.5 Coding Level of Care Code Off vis,est,level 3 Diagnoses Hypertension I10 Hyperlipidemia E78.5 09/23/17 0930 <Electronically signed by Dario Oh MD> Date Dario Oh MD Cosign Signature: Date (if applicable) CC: LIVER PROFILE Collected: 09/19/2017 Status: F Source: [place] 6:59 [place] [facility] [place] Order Comment: Order Date: 01/14/17 Order Info: [id number] - *Hepatic Function Panel Order Info: [id number] - *Lipid Profile CC PCP Comments: 12 hours fasting, may have water. TYPE CODE TESTS RESULT OUT OF RANGE REFERENCE UNITS LAB L501.1500 6.4-8.2 g/dL Normal T PROT 7.5 LAB L501.1800 3.2-5.0 g/dL Normal ALB 4.0 LAB L501.1950 2.2-4.2 g/dL Normal GLOB 3.5 LAB L501.4100 15-37 U/L Normal AST 15 LAB L501.4305 45-117 U/L Normal ALK P 48 LAB L501.4405 16-61 U/L Normal ALT 29 LAB L501.4600 0.20-1.00 mg/dL Normal T BILI 0.60 LAB L501.4700 0.00-0.30 mg/dL Normal D BILI 0.14 Performed By: #### L500.3400 #### [facility] [address] [place], [place], [id number] LIPID PROFILE Collected: 09/19/2017 Status: F Source: [place] 6:59 AM [facility] [place] Order Comment: Order Date: 01/14/17 Order Info: [id number] - *Hepatic Function Panel Order Info: [id number] - *Lipid Profile CC PCP Comments: 12 hours fasting, may have water. TYPE CODE TESTS RESULT OUT OF RANGE REFERENCE UNITS LAB L501.4900 200 mg/dL High CHOL 218 Result Comment: <200 mg/dL Desirable 200-240 mg/dL Borderline >240 mg/dL High Risk LAB L501.5000 mg/dL High TRIG 265 Result Comment: The drugs N-Acetylcysteine and Metamizole may falsely depress this assay. Serum Triglycerides Reference Interval Normal <150 mg/dL Borderline high 150 - 199 mg/dL High 200 - 499 mg/dL Very High > or = 500 mg/dL LAB L501.6400 mg/dL Normal HDL 40 Result Comment: The drugs N-Acetylcysteine and Metamizole may falsely depress this assay. Reference Range HDL <40 mg/dL Low HDL Cholesterol HDL >or= 60 mg/dL High HDL Cholesterol LAB L501.6500 0-130 mg/dL Normal LDL 125 LAB L501.6600 5-40 mg/dL High VLDL 53 Performed By: #### L500.4100 #### [facility] [address] [place], [place], [id number] ALLERGIES ALLERGIES DATE TYPE / CODE NAME / CODE REACTION SEVERITY SOURCE 06/12/2018 Drug No Known Unknown [facility] Allergy/416 Allergies/G34832 Hospital 886731(SNOM 0388(RXNORM) Repository ED CT) Drug NO KNOWN [facility] Class/93282 ALLERGIES [address] [place] 1003(SNOMED Repository CT) ENCOUNTERS ENCOUNTERS ADMIT/DISCHARGE ACCOUNT ADMITTING ENCOUNTER LOCATION SOURCE NUMBER CLASS 06/12/2018/06/12/19 [id number] Ambulatory BMSBuilding:B Da 19 MS.[facility] Repository 06/06/2018 [id number] [facility] ing:LAB Repository 11/29/2017/11/30/19 [id number] [place], Ambulatory [address] Repository 10/28/2017/11/01/19 [id number] Ambulatory [address] Repository 09/23/2017/09/24/19 [id number] Ambulatory BMSBuilding:B Da 18 MS.[facility] Repository 09/20/2017 [id number] Ambulatory BMSBuilding:B Da MS.[facility] Repository 09/19/2017 [id number] Ambulatory [facility] ing:LAB Repository PAYERS PAYERS ENCOUNTER GUARANTOR PAYER SUBSCRIBER SOURCE 06/12/2018 CAROLANN Jeff Primary CAROLANN P [place] VERONICA [facility] FAVIOLA [facility] [id number] Repository [address]Yoc: 330) Date:0948-53-55QJ [phone] ( [id number] [address]LA: 06/12/2018 Secondary NOT GIVENUNK [place] Insurance:SELF PAY [facility] ([place], [place]) Number: Effective Repository Date:2018-06-11 06/06/2018 CAROLANN Jeff Primary CAROLANN P [place] VERON[place] Insurance:[facility] [employer] [place] [id number] [facility] Number: [facility].: [facility] [id number] Repository [address]Hgp: (330) Date:2213-39-32NF [phone] (HP) [id number] [place] [address]RH: 06/06/2018 Secondary NOT GIVENUNK [place] Insurance:SELF PAY [facility] Number: Effective Repository Date:2018-06-06 09/23/2017 CAROLANN P Primary CAROLANN P [place] VERONICA Insurance:[employer] VER[place]ICA Community Jr.[address] FAVIOLA Lynny Number: Jr.: [facility] [id number] Repository [address]Yum: (330) Date:1809-79-00VA [phone] (HP) [id number] [place] [address]JH: 09/23/2017 Secondary NOT GIVENUNK [place] Insurance:SELF PAY [facility] Number: Effective Repository Date:2017-04-29 09/20/2017 CAROLANN P Primary CAROLANN P [place] VERONICA Insurance:[employer]ET[employer] VERONICA Community Jr.[address] F[address] Lynny Number: Jr.: [facility] [id number] Repository [address]Yvv: ([phone]) Date:2753-11-78PD [phone] (HP) [id number] [place] [address]AN: 09/20/2017 Secondary NOT GIVENUNK Da Insurance:SELF PAY [facility] Number: Effective Repository Date:2017-09-20 09/19/2017 CAROLANN P Primary CAROLANN P Da VERONICA Insurance:[employer]ET[employer] VERONICA Community Jr.[address] Paula Number: Jr.: [facility] [id number] Repository [address]Zbk: ([phone]) Date:4811-70-07GV [phone] (HP) [id number] [place] [address]TG: 09/19/2017 Secondary NOT GIVENUNK [place] Insurance:SELF PAY [facility] Number: Effective Repository Date:2017-09-19
== END ==
PROVIDERS: Referring Provider Internal Medicine Cardiovascular Disease; Visit Provider Internal Medicine Cardiovascular Disease
DX: E78.5 Hyperlipidemia, unspecified (principal); I10 Essential (primary) hypertension; R01.1 Cardiac murmur, unspecified
CPT/HCPCS: 36415; 80061; 80076

== ENCOUNTER → 2018-07-30 09:29 | Outpatient (CLI) | payer MEDICARE, SELFPAY ==
[2018-06-12 14:21] VITALS: BMI 26.4
--- NOTE | 2018-07-30 09:32 | STE_ITS ---
Reason For Study: HTN, Family HX of CAD Stress Results Protocol: Koby Protocol Maximum Predicted HR: 154 bpm Target HR: 131 bpm % Maximum Predicted HR: 108 % DurationHeart Rate Stage (mm:ss) (bpm) BP Comment Baseline 94 160/84No Chest Pain Koby Protocol Stage I 3:00 137 170/88No Chest Pain Koby Protocol Stage II 2:01 166 180/68No Chest Pain; Mild to Moderate Dyspnea Recovery 93 142/80No Chest Pain Stress Duration: 5:01 mm:ss Maximum Stress HR: 166 bpm METS: 7 Baseline Echocardiogram Findings The estimated ejection fraction is 65 %. Stress Echo Wall motion Data Resting WM Intermediate WM Stress WM Resting Wall Motion Wall Motion Stress No regional wall motion No regional wall motion abnormalities noted. abnormalities noted. EKG Data Normal intervals are noted. The patient exercised according to the regular Koby protocol for a total duration of 5:01. The maximum heart rate attained was 176 beats per minute. This was 114% of maximum predicted heart rate. The patient exercised into stage 2 of the Koby protocol. At peak exercise, upsloping ST changes only were noted, which did not meet the criteria for ischemia. No clinical angina was noted. Interpretation Summary The estimated ejection fraction is 65 %. Normal, adequate, treadmill echocardiogram. Negative for ischemia by EKG and echocardiographic criteria. No anginal symptoms noted. Rare PACs and PVCs noted. Hypertensive blood pressure response to exercise. Below average exercise capacity for age. Test terminated due to dyspnea. Final LVEF is 75%. No complications Ordering Physician: Dario Oh Referring Physician: Dario Oh Performed By: Sakshi Mcginnis RDCS
== END ==
PROVIDERS: Referring Provider Internal Medicine Cardiovascular Disease; Visit Provider Internal Medicine Cardiovascular Disease
DX: I10 Essential (primary) hypertension (principal); R01.1 Cardiac murmur, unspecified; Z82.49 Family history of ischemic heart disease and other diseases of the circulatory system; R06.00 Dyspnea, unspecified
CPT/HCPCS: 93017; 93350

== ENCOUNTER → 2019-02-05 07:15 | Outpatient (CLI) | payer MEDICARE, SELFPAY ==
[2018-06-12 14:21] VITALS: BMI 26.4
[2019-02-05 08:43] LABS: AST(SGOT) 20 U/L (15-37); Alanine Aminotransfer ALT/SGPT 35 U/L (16-61); Albumin, Serum 3.8 g/dL (3.2-5.0); Alkaline Phosphatase 49 U/L (45-117); Bilirubin, Direct 0.15 mg/dL (0.00-0.30); Cholesterol 219 mg/dL (200); Globulin 3.7 g/dL (2.2-4.2); High Density Lipoprotein 44 mg/dL; Protein, Total 7.5 g/dL (6.4-8.2); Triglycerides 225 mg/dL; Very Low Density Lipoprotein 45 mg/dL (5-40)
== END ==
PROVIDERS: Referring Provider Internal Medicine Cardiovascular Disease; Visit Provider Internal Medicine Cardiovascular Disease
DX: E78.5 Hyperlipidemia, unspecified (principal)
CPT/HCPCS: 36415; 80061; 80076

== ENCOUNTER → 2019-03-05 09:53 | Outpatient (CLI) | payer MEDICARE, SELFPAY ==
[2019-02-09 09:38] VITALS: BMI 26.2
--- NOTE | 2019-03-05 09:55 | ECHOD_ITS ---
Reason For Study: HTN Procedure This was a 2D Doppler, Color Flow transthoracic echocardiogram. Exam performed in department. Left Ventricle Normal size and thickness. The estimated ejection fraction is 65 %. Stage 1 diastolic dysfunction. No regional wall motion abnormalities noted. Right Ventricle Normal size and thickness. Normal systolic function. Atria Normal left atrium. Normal right atrium. Normal atrial septum. Mitral Valve Mild diffuse mitral valve thickening. Equivocal mitral valve prolapse. Trivial eccentric mitral valve insufficiency. Tricuspid Valve Normal tricuspid valve. Mild (1+) tricuspid valve insufficiency. Right ventricular systolic pressure estimated to be 35 mmHg. Aortic Valve Trisinus/trileaflet aortic valve. Mild focal aortic valve thickening. There is no aortic stenosis. Trivial aortic valve insufficiency. Pulmonic Valve Normal pulmonic valve. Great Vessels Normal aortic root. Normal arch. Normal inferior vena cava. Inferior vena cava collapse with sniff. Pericardium/Pleural No pericardial effusion. MMode/2D Measurements & Calculations LVIDd: 4.2 cm IVSd: 0.99 cm Ao root diam: 3.7 cm LVIDs: 2.9 cm LVPWd: 0.91 cm RVDd: 3.3 cm FS: 30.9 % LAV(MOD-bp): 48.9 ml LA A4 area: 16.8 cm2 LA dimension(2D): 4.1 cm LAV(MOD-bp) Indexed: 29.0 ml/m2 LAV(MOD-sp2): 57.1 ml LAV(MOD-sp4): 43.4 ml RA A4 area: 14.1 cm2 Time Measurements MV dec time: 0.29 sec Doppler Measurements & Calculations MV E max demetrio: 64.6 cm/sec Lat Peak E' Demetrio: 9.2 cm/sec Med Peak E' Demetrio: 6.3 cm/sec MV A max demetrio: 75.2 cm/sec E/E' lat: 7.1 E/E' med: 10.3 MV E/A: 0.86 Ao V2 max: 108.8 cm/sec AI max demetrio: 332.1 cm/sec LV V1 max: 101.2 cm/sec Ao max P.7 mmHg AI max P.1 mmHg LV V1 max P.1 mmHg AI dec slope: 174.5 cm/sec2 AI P1/2t: 557.4 msec TR max demetrio: 260.8 cm/sec TR max P.2 mmHg Interpretation Summary The estimated ejection fraction is 65 %. Stage 1 diastolic dysfunction. Trivial eccentric mitral valve insufficiency. Mild (1+) tricuspid valve insufficiency. Right ventricular systolic pressure estimated to be 35 mmHg. Trivial aortic valve insufficiency. Compared to echo report dated 01/23/2017, no appreciable changes noted. Ordering Physician: Dario Oh Referring Physician: Oh, Dario Performed By: Norma Shin ANDRAE, RVT
== END ==
PROVIDERS: Referring Provider Internal Medicine Cardiovascular Disease; Visit Provider Internal Medicine Cardiovascular Disease
DX: R01.1 Cardiac murmur, unspecified (principal)
CPT/HCPCS: 93306

== ENCOUNTER → 2020-01-11 | Outpatient (CLI) | payer MEDICARE, SELFPAY ==
[2019-04-19 14:06] VITALS: BMI 26.2
[2020-01-11 08:47] LABS: AST(SGOT) 30 U/L (15-37); Alanine Aminotransfer ALT/SGPT 50 U/L (16-61); Albumin, Serum 3.9 g/dL (3.2-5.0); Alkaline Phosphatase 44 U/L (45-117); Cholesterol 197 mg/dL (200); Globulin 3.5 g/dL (2.2-4.2); High Density Lipoprotein 42 mg/dL; Protein, Total 7.4 g/dL (6.4-8.2); Triglycerides 140 mg/dL; Very Low Density Lipoprotein 28 mg/dL (5-40)
== END | disposition home or self-care (01) ==
PROVIDERS: Referring Provider Internal Medicine Cardiovascular Disease; Visit Provider Internal Medicine Cardiovascular Disease
DX: E78.00 Pure hypercholesterolemia, unspecified (principal)
CPT/HCPCS: 36415; 80061; 80076

== ENCOUNTER → 2020-05-31 13:25 | Outpatient (CLI) | payer MEDICARE, SELFPAY ==
[2020-01-14 10:43] VITALS: BMI 26.2
== END ==
PROVIDERS: Referring Provider Nurse Practitioner Family; Visit Provider Nurse Practitioner Family
DX: R00.2 Palpitations (principal); R00.0 Tachycardia, unspecified
CPT/HCPCS: 93225; 93226

== ENCOUNTER → 2020-06-02 13:56 | Outpatient (CLI) | payer MEDICARE, SELFPAY ==
[2020-01-14 10:43] VITALS: BMI 26.2
--- NOTE | 2020-06-02 14:00 | ECHOD_ITS ---
Reason For Study: DIASTOLIC DYSFUNCTION Procedure This was a 2D Doppler, Color Flow transthoracic echocardiogram. The exam was of adequate technical quality. Exam performed in department. Left Ventricle Normal LV size. Left ventricular systolic function is normal. The estimated ejection fraction is 65 %. No evidence for diastolic dysfunction. No regional wall motion abnormalities noted. Right Ventricle Normal RV size. Normal systolic function. Atria The left atrium is mildly enlarged. Normal right atrium. No doppler evidence for ASD. Mitral Valve There is no mitral annular calcification. Normal mitral valve. Mild (1+) mitral valve insufficiency. Tricuspid Valve Normal tricuspid valve. Mild tricuspid valve insufficiency. Right ventricular systolic pressure estimated to be 28 mmHg. Aortic Valve Trisinus/trileaflet aortic valve. Normal aortic valve. Mild (1+) aortic valve insufficiency. Pulmonic Valve The pulmonic valve is not well visualized. Great Vessels Normal sized aortic root. Pericardium/Pleural No pericardial effusion. MMode/2D Measurements & Calculations LVIDd: 5.1 cm IVSd: 0.83 cm Ao root diam: 3.7 cm LVIDs: 3.4 cm LVPWd: 1.0 cm RVDd: 3.0 cm FS: 33.2 % LAV(MOD-bp): 47.1 ml LA A4 area: 17.6 cm2 LA dimension(2D): 4.2 cm LAV(MOD-bp) Indexed: 27.7 ml/m2 LAV(MOD-sp2): 42.2 ml LAV(MOD-sp4): 45.6 ml RA A4 area: 10.4 cm2 Time Measurements MV dec time: 0.14 sec Doppler Measurements & Calculations MV E max demetrio: 48.4 cm/sec Lat Peak E' Demetrio: 8.5 cm/sec Med Peak E' Demetrio: 4.0 cm/sec MV A max demetrio: 89.5 cm/sec E/E' lat: 5.7 E/E' med: 12.1 MV E/A: 0.54 Ao V2 max: 108.9 cm/sec AI max demetrio: 355.7 cm/sec LV V1 max: 90.8 cm/sec Ao max P.7 mmHg AI max P.6 mmHg LV V1 max P.3 mmHg AI dec slope: 138.3 cm/sec2 AI P1/2t: 753.0 msec PA V2 max: 119.2 cm/sec PI end-d demetrio: 119.6 cm/sec TR max demetrio: 251.6 cm/sec TR max P.3 mmHg Interpretation Summary Left ventricular systolic function is normal. The estimated ejection fraction is 65 %. The left atrium is mildly enlarged. Mild (1+) mitral valve insufficiency. Mild tricuspid valve insufficiency. Mild (1+) aortic valve insufficiency. Right ventricular systolic pressure estimated to be 28 mmHg. No evidence for diastolic dysfunction. Ordering Physician: Zen Weston Referring Physician: Zen Weston Performed By: Norma Shin, ANDRAE, RVT
== END ==
PROVIDERS: Referring Provider Nurse Practitioner Family; Visit Provider Nurse Practitioner Family
DX: I36.1 Nonrheumatic tricuspid (valve) insufficiency (principal); I51.89 Other ill-defined heart diseases; I10 Essential (primary) hypertension; R01.1 Cardiac murmur, unspecified
CPT/HCPCS: 93306

== ENCOUNTER 2021-09-14 07:00 | Outpatient (RCR) | payer MEDICARE, SELFPAY ==
--- NOTE | 2021-08-16 10:04 | HP.PTEVAL ---
Patient's Visit Information CAROLANN MARTIN is a 71 year old M referred to Physical Therapy by KIRBY Larios with a diagnosis of Shoulder Strain. Date of Evaluation: 08/16/21 Physical Therapist: Emeli Nix DPT - Visit Plan Frequency: 2x /Week Duration: 4 Weeks Plan: Focus on scapular stabilization- decrease radicular s/s- no modalities covered under insurance. HEP Given IE: Postural education, upper trap stretch, scapular retractions, bilateral ER without bands - Subjective Went to urgent care in December due to over stretching over a bolster- he could not move his arm above his head- medrol dose pack helped. Goes weekly to massage therapy and felt that it was better. Then when the massage therapist moved his shoulder and the pain came back. The pain comes and goes- several times a day. Tingling that goes down to the elbow. Sleeps on the couch since he has had pain. Takes Advil 2x a day and that does help. Right hand dominate. Slows him down. Worst: 5/10 Agg: laying on it, reaching out Best: 0/10. Does have achy pains into the upper trap. No WEINSTEIN, blurred vision, dizziness. No change in finger dexterity or manager distribution center strength. He is not as active as he was before. He use to go to [employer] every 2 weeks- to have someone stretch him. Retired- meditation and listen to music. Does not have a specific chair that he sits in. He has a rower- he got up to 20 minutes- but did not seem to have any effect on his arm. No pain on the left side. PMHx: leaky valve Meds: blood pressure - Objective Posture: FH, RS- can correct with verbal cues but is unable to maintain. Gait: no deviation noted- good arm swing and trunk rotation. Palpation: tender along medial border of the scapula, upper trap, cervical paraspinals on the right, AC joint, bicipital groove. ROM: Flexion: 160 degrees, Abd: 90 degrees, IR: belt line, ER: 50 degrees- pain at end ranges, Elbow/Wrist/Hand: WFL Cervical: WFL tightness with SB bilateral. 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 Sensation: WNL - Special Tests R Shoulder Supine Impingement Test - RC Tear: Positive R Shoulder Lift Off Test - Subscapular Tear: Positive R Shoulder Drop Sign - IS Test: Positive R Shoulder Empty Can - SS: Positive R Shoulder Belly Press - SupScap: Positive R Shoulder Neer - Impingement: Positive R Shoulder Buchanan Cedrick - Impingement: Positive - Balance/Special Test Scores Quick DASH Score: 20.4525 - Goals Goal 1:: Patient will be I with HEP and progression Goal Time Frame: 4-6 Weeks Goal 2:: Patient will maintain proper posture t/o tx session to demo increased scap s/s. Goal Time Frame: 4-6 Weeks Goal 3:: Patient will report no radicular s/s for 1 week Goal Time Frame: 4-6 Weeks Goal 4:: Patient will report 80% improvement Goal Time Frame: 4-6 Weeks - Rehabilitation Potential Physical Therapy Diagnosis: Patient presents with hypomobility- he has decreased pain free ROM, UE and scapular s/s and muscular endurance leading to poor posture and increased pain with ADL's. Rehabilitation Potential: Good - Anticipated Interventions Patient/Client Instruction: Educate patient on: Benefits of Fitness Program Therapeutic Exercise to Include: Strength training, Endurance training, Body mechanics, Postural training, Gait and locomotor training, Neuromotor development, Dynamic Lumbar Stabilization, Scapular Strength/Stabilization For the Purpose of:: To improve muscle performance and motor function Thank you for the opportunity to evaluate your patient. For Medicare and Medicare HMO plans, please review the plan of care and approve it. It will need to be FAXED BACK to us at [phone] for Medicare purposes. For Medicare only, by signing this I certify the plan of care. Please let me know if there are questions or concerns regarding this plan of care. Physician Signature: Date:
--- NOTE | 2021-09-14 07:23 | HP.PTREVAL ---
KIRBY Larios, It has been my pleasure to treat CAROLANN MARTIN over the last 9 visits for Shoulder Strain. Please see the progress note below for an update on the physical therapy plan of care! Subjective: Patient reports that he has less tingling but does still have some discomfort- but its less and less. He is able to get a washcloth over for IR stretch. Hardest to get his shoulder across to wash his opposite side. He is a lot more active at home. Objective/Function: Posture: fair throughout. Gait: no deviation noted- good arm swing and trunk rotation. Palpation: not tender to touch ROM: Flexion: 160 degrees, Abd: 110 degrees, IR: belt line, ER: 50 degrees- pain at end ranges of flexion and abduction, Elbow/Wrist/Hand: WFL Cervical: WFL tightness with SB bilateral. Strength: scap: fair, Shoulder: 4/5 throughout flexion and abduction, 4+/5 extension, IR/ER: 4+/5, Elbow: 5/5 Sensation: WNL. - Special Tests. R Shoulder Supine Impingement Test - RC Tear: Positive. R Shoulder Lift Off Test - Subscapular Tear: Positive. R Shoulder Drop Sign - IS Test: Positive. R Shoulder Empty Can - SS: Positive. R Shoulder Belly Press - SupScap: Positive. R Shoulder Neer - Impingement: Positive. R Shoulder Buchanan Cedrick - Impingement: Positive Plan Plan: 09/14/21: Continue HEP- will re-check in 4 weeks- encouraged to call sooner if needed. IE:Focus on scapular stabilization- decrease radicular s/s- no modalities covered under insurance. Balance/Gait/Functional tests - Balance/Special Test Scores Quick DASH Score: 22.7250 Goals Goal 1:: Patient will be I with HEP and progression Goal Time Frame: 4-6 Weeks Goal 2:: Patient will maintain proper posture t/o tx session to demo increased scap s/s. Goal Time Frame: 4-6 Weeks Goal 3:: Patient will report no radicular s/s for 1 week Goal Time Frame: 4-6 Weeks Goal 4:: Patient will report 80% improvement Goal Time Frame: 4-6 Weeks Anticipated Interventions Patient/Client Instruction: Educate patient on: Benefits of Fitness Program Therapeutic Exercise to Include: Strength training, Endurance training, Body mechanics, Postural training, Gait and locomotor training, Neuromotor development, Dynamic Lumbar Stabilization, Scapular Strength/Stabilization For the Purpose of:: To improve muscle performance and motor function Please do not hesitate to contact me at [phone] by phone or if you have questions or concerns regarding this new plan of care! Sincerely, MERI AlmazanT
--- NOTE | 2021-11-01 10:53 | HP.PTDCSUM_ITS ---
It has been my pleasure to treat CAROLANN MARTIN referred by KIRBY Larios, with the diagnosis of Shoulder Strain for a total of 9 visit(s). Discharge Date: Please see the following information for a summary of their discharge status. Subjective: Patient reports that he has less tingling but does still have some discomfort- but its less and less. He is able to get a washcloth over for IR stretch. Hardest to get his shoulder across to wash his opposite side. He is a lot more active at home. % Improvement: 75 Objective/Function: Posture: fair throughout. Gait: no deviation noted- good arm swing and trunk rotation. Palpation: not tender to touch ROM: Flexion: 160 degrees, Abd: 110 degrees, IR: belt line, ER: 50 degrees- pain at end ranges of flexion and abduction, Elbow/Wrist/Hand: WFL Cervical: WFL tightness with SB bilateral. Strength: scap: fair, Shoulder: 4/5 throughout flexion and ab duction, 4+/5 extension, IR/ER: 4+/5, Elbow: 5/5 Sensation: WNL. - Special Tests. R Shoulder Supine Impingement Test - RC Tear: Positive. R Shoulder Lift Off Test - Subscapular Tear: Positive. R Shoulder Drop Sign - IS Test: Positive. R Shoulder Empty Can - SS: Positive. R Shoulder Belly Press - SupScap: Positive. R Shoulder Neer - Impingement: Positive. R Shoulder Buchanan Cedrick - Impingement: Positive Goal 1:: Patient will be I with HEP and progression Goal 2:: Patient will maintain proper posture t/o tx session to demo increased scap s/s. Goal 3:: Patient will report no radicular s/s for 1 week Goal 4:: Patient will report 80% improvement Plan: 09/14/21: Continue HEP- will re-check in 4 weeks- encouraged to call sooner if needed. IE:Focus on scapular stabilization- decrease radicular s/s- no modalities covered under insurance. If there are questions or concerns regarding this patient's physical therapy, please feel free to call me at [phone]. Thank you for the referral of this patient. Sincerely, Emeli Nix, MERIT Balance/Gait/Functional tests - Balance/Special Test Scores Quick DASH Score: [phone]
== END 2021-09-14 19:00 | disposition home or self-care (01) ==
LOC: PT 07:00
PROVIDERS: Referring Provider Physician Assistant Surgical; Visit Provider Physician Assistant Surgical
DX: S46.911D Strain of unspecified muscle, fascia and tendon at shoulder and upper arm level, right arm, subsequent encounter (principal)
CPT/HCPCS: 97110; 97162; 97164

== ENCOUNTER 2022-05-27 22:49 | Emergency (ER) | payer MEDICARE, SELFPAY ==
[2022-05-27 22:50] VITALS: BP 180/103; PULSE 86; RESP 15; TEMP 36.4; O2SAT 98; BMI 26.4
[2022-05-27 23:01] VITALS: BP 140/126; PULSE 75; RESP 18; O2SAT 98
--- NOTE | 2022-05-27 23:20 | EKG12_ITS ---
Test Reason : PALPS Blood Pressure : / mmHG Vent. Rate : 077 BPM Atrial Rate : 077 BPM P-R Int : 182 ms QRS Dur : 088 ms QT Int : 382 ms P-R-T Axes : 050 -26 -06 degrees QTc Int : 432 ms Sinus rhythm with occasional Premature ventricular complexes Minimal voltage criteria for LVH, may be normal variant ( R in aVL ) Nonspecific ST and T wave abnormality Abnormal ECG Confirmed by DOUGLAS NAVARRO, LUPE ([id number]), publishing editor CARLTON VOGEL ([id number]) on 05/28/2022 2:01:39 PM Referred By: BB Confirmed By:LUPE COLE MD
--- NOTE | 2022-05-27 23:21 | EX.ED.DYSGE1 ---
HPI History of Present Illness Chief Complaint: Palpitations Informant: patient Narrative Narrative: Gentleman has been checking his blood pressure regularly in preparation for a visit at PCP later this week. He states while he was checking it tonight, the blood pressure cuff was indicating that his heartbeat was irregular and possibly in A. fib. He does not have a history of A. fib so he presents for evaluation. He is asymptomatic. He does have a known mitral regurgitation murmur which has been followed by his PCP and echocardiogram, he states he has had 3 of them that have not changed, he does not have any dyspnea with exertion, near-syncope or syncope with exertion, or chest discomfort. He feels no palpitations tonight's or lightheadedness. No recent illness. [facility] Medical History Cardiac murmur, unspecified Essential hypertension Hyperlipidemia Palpitations Palpitations Tachycardia Home Medications carvedilol 6.25 mg tablet See Rx Instructions .Route .COMPLEX #180 tabs 03/27/21 [Rx Last Taken Unknown] lisinopril 20 mg-hydrochlorothiazide 12.5 mg tablet See Rx Instructions .Route .COMPLEX #90 tabs 05/03/22 [Rx Last Taken Unknown] Allergy/AdvReac Type Severity Reaction Status Date / Time No Known Allergies Allergy Verified 05/27/22 22:50 Family History Father CVA (cerebral vascular accident) Hypertension Mother CAD (coronary artery disease) Hypertension Myocardial infarction Surgical History History of hernia repair Social History Smoking Status: Never smoker alcohol intake: current Alcohol type: wine ROS ROS ED Constitutional Constitutional ED: Denies chills or fever(s) Eyes Eyes: Denies change in vision or diplopia ENT ENT ED: Denies rhinorrhea or sore throat Cardiovascular Cardiovascular: Denies chest pain or palpitations Respiratory/Chest Respiratory/Chest: Denies cough or dyspnea Gastrointestinal Gastrointestinal: Denies abdominal pain, diarrhea, nausea or vomiting Genitourinary Genitourinary ED: Denies dysuria or hematuria Musculoskeletal Musculoskeletal: Denies back pain or neck pain Integumentary Denies abscess or rash Neurologic Neurologic: Denies headache(s), paresthesias or weakness Psychiatric Psychiatric: Reports anxiety; Denies suicidal thoughts EXAM Physical Exam Const Vital Signs: 05/27/22 22:50 05/27/22 23:01 05/27/22 23:01 Temperature 97.6 F L Temperature Source Temporal Pulse Rate 86 75 Respiratory Rate 15 18 Respiratory Effort Normal Non-Labored Respiratory Pattern Blood Pressure 180/103 H 140/126 H Blood Pressure Mean 128 130 Pulse Ox 98 98 Oxygen Delivery Method Room Air Room Air 05/27/22 23:01 Temperature Temperature Source Pulse Rate Respiratory Rate Respiratory Effort Normal Non-Labored Respiratory Pattern Normal Blood Pressure Blood Pressure Mean Pulse Ox Oxygen Delivery Method Positive well nourished and well developed General Appearance ED: well developed and NAD HEENT Reports moist mucous membranes normocephalic and atraumatic Eyes PERRL and EOMs intact bilaterally Neck full ROM and supple Resp normal respiratory effort and clear to auscultation bilaterally Cardio regular rate, regular rhythm and no murmurs Extremity normal to inspection General Extremety ED: Negative for edema, pulses abnormal or tenderness General Extremity: Negative for edema or pulses abnormal Neuro oriented x3, CN's II-XII intact bilaterally and no sensory deficits noted Sensorium / Orientation: awake and alert Motor Exam: strength 5/5 throughout Skin no rashes or lesions noted and no wounds MDM MDM MDM Narrative Medical decision making narrative: While interviewing this patient, he was having several PVCs. He was asymptomatic with them all. He is not in A. fib. I suspect this is the reason his monitor was saying that his pulse was irregular. It is not infrequent that he has PVC. His blood pressure is elevated, however it was all over the board. His initial blood pressure is 180/103, then 140/120s, and finally 176/104. He has a blood pressure pill tonight that he has not taken yet, it is almost 11:30 PM. I reassured him, he is asymptomatic I do not think he needs further testing here than the EKG that we did, he can go home take his blood pressure medication and follow-up with his primary care later this week he is comfortable with that plan. Rhythm Strip Rhythm Strip: Sinus Rhythm Rate: 80 Ectopy: PVC(s) EKG Initial EKG: Attestation: I personally reviewed and interpreted this EKG as follows: Interpretation: Sinus Rhythm and No Acute Injury Pattern Prior EKG tracings: available for review Prior: Unchanged Discharge Plan Triage Chief Complaint: Palpitations ED Provider: Nic Samuels Dx/Rx/DC Orders Clinical Impression: Ventricular ectopy Instructions: PVCs Prescriptions: No Action carvedilol 6.25 mg tablet See Rx Instructions .ROUTE .COMPLEX Qty: 180 3RF Dose Instruction: TAKE 1 TABLET TWICE A DAY Rx Instructions: TAKE 1 TABLET TWICE A DAY lisinopril-hydrochlorothiazide 20-12.5 mg tablet See Rx Instructions .ROUTE .COMPLEX Qty: 90 3RF Dose Instruction: TAKE 1 TABLET DAILY Rx Instructions: TAKE 1 TABLET DAILY Primary Care Provider: Care Physician,No Primary Referrals: Doctor,Your [Non-Staff] - Keep [facility] appointment Disposition Disposition: Home, Self Care
[2022-05-27 23:57] VITALS: BP 154/92; PULSE 63; RESP 20; O2SAT 96
== END 2022-05-27 23:57 | disposition home or self-care (01) ==
LOC: ED 23:27
PROVIDERS: Emergency Provider Emergency Medicine; Visit Provider Emergency Medicine
DX: I49.3 Ventricular premature depolarization (principal); R00.2 Palpitations; E78.5 Hyperlipidemia, unspecified; I10 Essential (primary) hypertension; F41.9 Anxiety disorder, unspecified
CPT/HCPCS: 93005; 99284; A4216

== ENCOUNTER → 2022-05-31 | Outpatient (CLI) | payer MEDICARE, SELFPAY ==
[2022-05-31 11:00] LABS: Absolute Lymphocyte Count 2.02 X10^3/uL (0.83-4.51); Absolute Neutrophil Count 4.9 X10^3/uL (2.0-7.7); Basophil# 0.07 X10^3/uL; Basophil% 0.9 % (0-1); Eosinophils% 1.3 % (0-5); Hematocrit 41.1 % (40-54); Hemoglobin 13.5 g/dL (13.0-16.5); Lymphocyte # 2.02 X10^3/ul (0.83-4.51); Mean Corp Hgb Conc 32.8 g/dL (32-36); Mean Corpuscular Hgb 29.7 pg (27.0-32.0); Mean Corpuscular Volume 90.3 fL (80-94); Mean Platelet Vol. 10.8 fl (6.2-12.0); Monocyte# 0.66 X10^3/uL; Monocyte% 8.5 % (0-10); NRBC Flagged by Analyzer 0 % (0-5); Neutrophil # 4.91 X10^3/uL (2.7-7.7); Platelet Count 215 K/mm3 (150-450); RBC Distribution Width CV 12.7 % (11.6-14.6); Red Blood Count 4.55 M/mm3 (4.6-6.2); White Blood Count 7.8 K/mm3 (4.4-11.0)
[2022-05-31 11:27] LABS: ALB/GLOB Ratio 1.1 RATIO (0.9-2.4); AST(SGOT) 17 U/L (15-37); Alanine Aminotransfer ALT/SGPT 30 U/L (16-61); Albumin, Serum 4.1 g/dL (3.2-5.0); Alkaline Phosphatase 49 U/L (45-117); Anion Gap 5 (5-15); BUN 37 mg/dL (7-18); Calcium,Total 9.1 mg/dL (8.5-10.1); Chloride 109 mmol/L (98-107); Cholesterol 196 mg/dL (200); Creatinine, Serum 2.05 mg/dL (0.70-1.30); EST Glomerular Filtration Rate 34 mL/min (>60); Est Glom Filt Rate - Afr Amer 41 mL/min (>60); Globulin 3.7 g/dL (2.2-4.2); Glucose 137 mg/dL (74-106); High Density Lipoprotein 43 mg/dL; Potassium 4.5 mmol/L (3.5-5.1); Protein, Total 7.8 g/dL (6.4-8.2); Sodium Level 141 mmol/L (136-145); Triglycerides 174 mg/dL; Very Low Density Lipoprotein 35 mg/dL (5-40)
== END | disposition home or self-care (01) ==
LOC: LAB 10:25
PROVIDERS: Referring Provider Physician Assistant Medical; Visit Provider Physician Assistant Medical
DX: I10 Essential (primary) hypertension (principal); E78.5 Hyperlipidemia, unspecified; I34.0 Nonrheumatic mitral (valve) insufficiency
CPT/HCPCS: 36415; 80053; 80061; 85025

== ENCOUNTER → 2022-06-08 | Outpatient (CLI) | payer MEDICARE, SELFPAY ==
--- NOTE | 2022-06-08 07:51 | ECHOD_ITS ---
Reason For Study: MURMUR Procedure This was a 2D Doppler, Color Flow transthoracic echocardiogram. Exam performed in department. Left Ventricle Normal LV size. Left ventricular systolic function is normal. The estimated ejection fraction is 60 %. Stage 2 diastolic dysfunction. No regional wall motion abnormalities noted. Right Ventricle Normal RV size. Normal systolic function. Atria The left atrium is mildly enlarged. Normal right atrium. No doppler evidence for ASD. Mitral Valve There is no mitral annular calcification. Mild mitral valve prolapse, posterior leaflet. Mild (1+) mitral valve insufficiency. Tricuspid Valve Normal tricuspid valve. Mild tricuspid valve insufficiency. Right ventricular systolic pressure estimated to be 34 mmHg. Aortic Valve Trisinus/trileaflet aortic valve. Mild focal aortic valve calcification. Pulmonic Valve The pulmonic valve is not well visualized. Great Vessels Normal sized aortic root. Pericardium/Pleural No pericardial effusion. MMode/2D Measurements & Calculations LVIDd: 4.8 cm IVSd: 1.1 cm LVOT diam: 2.3 cm LVIDs: 3.0 cm LVPWd: 1.1 cm LVOT area: 4.3 cm2 RVDd: 3.0 cm FS: 37.9 % Ao root diam: 3.6 cm LAV(MOD-bp): 76.1 ml LVAd ap4: 29.6 cm2 LAV(MOD-bp) Indexed: 44.9 ml/m2 LVLd ap4: 8.1 cm LAV(MOD-sp2): 71.2 ml EDV(MOD-sp4): 89.8 ml LAV(MOD-sp4): 72.1 ml EDV(sp4-el): 92.2 ml LVAs ap4: 18.4 cm2 LVLs ap4: 7.4 cm ESV(MOD-sp4): 36.7 ml ESV(sp4-el): 38.7 ml EF(MOD-sp4): 59.1 % EF(sp4-el): 58.1 % LVAd ap2: 23.4 cm2 SV(MOD-sp4): 53.1 ml SV(MOD-sp2): 38.3 ml LVLd ap2: 7.6 cm EDV(MOD-sp2): 62.8 ml EDV(sp2-el): 61.0 ml LVAs ap2: 13.2 cm2 LVLs ap2: 6.3 cm ESV(MOD-sp2): 24.5 ml ESV(sp2-el): 23.4 ml EF(MOD-sp2): 61.0 % SV(sp4-el): 53.6 ml LA dimension(2D): 4.0 cm LA A4 area: 22.7 cm2 RA A4 area: 13.3 cm2 Time Measurements MV dec time: 0.19 sec Doppler Measurements & Calculations MV E max demetrio: 89.0 cm/sec Lat Peak E' Demetrio: 11.7 cm/sec Med Peak E' Demetrio: 6.2 cm/sec MV A max demetrio: 84.0 cm/sec E/E' lat: 7.6 E/E' med: 14.4 MV E/A: 1.1 Ao V2 max: 110.5 cm/sec AI max demetrio: 407.4 cm/sec LV V1 max: 91.3 cm/sec Ao max P.9 mmHg AI max P.5 mmHg LV V1 max P.3 mmHg Ao V2 mean: 71.3 cm/sec LV V1 mean P.7 mmHg Ao mean P.4 mmHg AI dec slope: 144.7 cm/sec2 LV V1 mean: 62.0 cm/sec Ao V2 VTI: 21.9 cm AI P1/2t: 824.4 msec LV V1 VTI: 19.0 cm AV (velocity ratio): 0.87 HERNAN(I,D): 3.7 cm2 HERNAN(V,D): 3.6 cm2 SV(LVOT): 81.9 ml PA V2 max: 78.0 cm/sec PI dec slope: 166.8 cm/sec2 TR max demetroi: 278.8 cm/sec TR max P.1 mmHg ECHO/Echo Complete Interpretation Summary Left ventricular systolic function is normal. The estimated ejection fraction is 60 %. The left atrium is mildly enlarged. Mild mitral valve prolapse, posterior leaflet Mild (1+) mitral valve insufficiency. Mild tricuspid valve insufficiency. Mild focal aortic valve calcification. Right ventricular systolic pressure estimated to be 34 mmHg. Stage 2 diastolic dysfunction. Ordering Physician: Kavita De La Paz Referring Physician: CRYSTAL PCP Performed By: Trisha Watkins RDCS, RVT
== END | disposition home or self-care (01) ==
LOC: CVS 07:50
PROVIDERS: Visit Provider Physician Assistant Medical
DX: I49.3 Ventricular premature depolarization (principal)
CPT/HCPCS: 93306

== ENCOUNTER → 2022-08-13 | Outpatient (CLI) | payer MEDICARE, SELFPAY ==
--- NOTE | 2022-08-13 08:01 | RDU_ITS ---
Reason For Study: Hypertension Right Renal Artery Left Renal Artery Right renal artery ostium Left renal artery ostium 127.7/30.9 147.5/40.8 RSV/EDV. PSV/EDV. Right renal artery proximal Left renal artery proximal PSV/EDV 134.5/24.6 PSV/EDV. 131.3/29.0 . Right renal artery mid 154.0/27.8 Left renal artery mid 142.3/32.7 PSV/EDV. PSV/EDV . Right renal artery distal Left renal artery distal 66.2/14.0 105.2/21.2 PSV/EDV. PSV/EDV. Right RAR 2.18. Left RAR 2.02. Right Renal Parenchyma Left Renal Parenchyma Upper Pole Medula 27.9/8.8 PSV/EDV. Left upper pole medulla 40.2/12.7 Right upper pole medulla EDR 0.30 . PSV/EDV . Right upper pole medulla R.I. Left upper pole medulla EDR 0.30 . 0.69 . Left upper pole medulla R.I. 0.68 . Upper Bro Cortx 25.2/7.9 PSV/EDV. UP Cortex 15.7/5.3 PSV/EDV. Right upper pole cortex EDR 0.30 . Left upper pole cortex EDR 0.30 . Right upper pole cortex R.I. 0.69 . Left upper pole cortex R.I. 0.66 . Right lower Pole medulla 28.8/6.9 Left lower Pole medulla 42.1/6.4 PSV/EDV . PSV/EDV . Right lower pole medulla EDR 0.20 . Left lower pole medulla EDR 0.20 . Right lower pole medulla R.I. Left lower pole medulla R.I. 0.85 . 0.76 . Lower Pole Cortx 25.6/4.7 PSV/EDV. Lower Pole Cortex 10.7/4.5 PSV/EDV. Left lower pole cortex EDR 0.20 . Right lower pole cortex EDR 0.40 . Left lower pole cortex R.I. 0.82 . Right lower pole cortex R.I. 0.58 . Left Renal Hilar Right Renal Hilar LT Hilar avg 88.6/23.7 PSV/EDV . Right Hilar avg 73.3/18.5 PSV/EDV. Left hilar acceleration time 50 Right hilar acceleration time 40 m/sec. m/sec. Left Renal Dimensions Right Renal Dimensions Left kidney size 10.13 cm . Right kidney size 11.12 cm . Left cortical dimension 0.79 cm . Right cortical dimension 1.12 cm . Multiple non vascularized anechoic Multiple non vascularized anechoic structures noted in Rt Kidney. structures noted in Rt Kidney. Aorta Non vascularized anechoic structure measuring approximately 18.60cm x 13.15cm noted in patient's abdomen. Proximal abdominal aorta 1.64 x 1.61 cm . Proximal abdominal aorta peak systolic velocity is 70.5 cm/sec . Distal abdominal aorta 1.03 x 1.10 cm . Distal abdominal aorta peak systolic velocity is 128.1 cm/sec . VL/Renal Artery Duplex Ultrasound Interpretation Summary Maximal diameter of the proximal abdominal aorta at 1.64 x 1.61 cm in diameter which is normal. Normal flow velocity proximally. Less than 60% stenosis bilateral renal arteries Multiple non-vascular anechoic structures bilateral kidneys suspicious for mult iple cysts Non-vascular anechoic structure in the upper abdomen measuring 18.6 x 13.15 cm. Incompletely evaluated and clinical correlation indicated Ordering Physician: Kavita De La Paz Referring Physician: Kavita De La Paz Performed By: Gurjit Mccarthy RVJoseph
== END | disposition home or self-care (01) ==
LOC: CVS 08:00
PROVIDERS: Referring Provider Physician Assistant Medical; Visit Provider Physician Assistant Medical
DX: I10 Essential (primary) hypertension (principal); N28.9 Disorder of kidney and ureter, unspecified
CPT/HCPCS: 93788; 93975

== ENCOUNTER → 2022-08-16 | Outpatient (CLI) | payer MEDICARE, SELFPAY ==
[2022-08-16 11:11] LABS: Anion Gap 9 (5-15); BUN 64 mg/dL (7-18); BUN/Creat Ratio 20.6 RATIO (10-20); Calcium,Total 9.1 mg/dL (8.5-10.1); Chloride 102 mmol/L (98-107); EST Glomerular Filtration Rate 21 mL/min (>60); Est Glom Filt Rate - Afr Amer 26 mL/min (>60); Glucose 106 mg/dL (74-106); Potassium 4.2 mmol/L (3.5-5.1); Sodium Level 139 mmol/L (136-145)
== END | disposition home or self-care (01) ==
LOC: LAB 10:12
PROVIDERS: Referring Provider Physician Assistant Medical; Visit Provider Physician Assistant Medical
DX: R03.0 Elevated blood-pressure reading, without diagnosis of hypertension (principal); N28.9 Disorder of kidney and ureter, unspecified
CPT/HCPCS: 36415; 80048

== ENCOUNTER 2022-08-21 11:28 | Emergency (ER) | payer MEDICARE, SELFPAY ==
[2022-08-21 11:29] VITALS: BP 186/94; PULSE 78; RESP 18; TEMP 36.8; O2SAT 99; BMI 24.7
--- NOTE | 2022-08-21 11:57 | EX.ED.DYSGE1 ---
HPI History of Present Illness Chief Complaint: Complaint Informant: patient Onset/Context/Timing Context: Gradual Onset Timing: Continuous Quality: Distended Location: Lower abdomen Worsened by: Nothing Relieved by: Nothing Narrative Narrative: Patient presents with bladder distention that was noticed today. Patient states he had an ultrasound of his kidneys that was done today. Patient states that his kidneys were enlarged and they ultrasounded his bladder. They noted his bladder to be distended. Patient states he has been able to urinate. Patient denies any pain. Patient denies any dysuria or hematuria. Patient denies any fevers or chills. Patient denies any nausea or vomiting. [facility] Medical History Cardiac murmur, unspecified Essential hypertension Hyperlipidemia Palpitations Palpitations Tachycardia Home Medications amlodipine 5 mg tablet (Norvasc) 5 mg PO DAILY #30 tabs 08/16/22 [Rx Last Taken Unknown] carvedilol 12.5 mg tablet 12.5 mg PO BID #60 tabs 08/20/22 [Rx Last Taken Unknown] Allergy/AdvReac Type Severity Reaction Status Date / Time No Known Allergies Allergy Verified 08/21/22 11:37 Family History Father CVA (cerebral vascular accident) Hypertension Mother CAD (coronary artery disease) Hypertension Myocardial infarction Surgical History History of hernia repair Social History Smoking Status: Never smoker alcohol intake: current Alcohol type: wine ROS ROS ED Constitutional Constitutional ED: Denies chills or fever(s) Eyes Eyes: Denies blurry vision or change in vision ENT ENT ED: Denies rhinorrhea or sore throat Cardiovascular Cardiovascular: Denies chest pain or palpitations Respiratory/Chest Respiratory/Chest: Denies cough or dyspnea Gastrointestinal Gastrointestinal: Denies nausea or vomiting Genitourinary Genitourinary ED: Denies dysuria or hematuria Musculoskeletal Musculoskeletal: Denies back pain or neck pain Integumentary Denies abscess or rash Neurologic Neurologic: Denies headache(s) or weakness Allergic/Immunologic Allergic/Immunologic ED: Denies mouth swelling or urticaria EXAM Physical Exam Const Vital Signs: 08/21/22 11:29 08/21/22 13:28 08/21/22 15:08 Temperature 98.3 F 98.1 F Temperature Source Temporal Pulse Rate 78 79 83 Respiratory Rate 18 18 16 Blood Pressure 186/94 H 165/72 H 166/76 H Blood Pressure Mean 124 103 Pulse Ox 99 97 98 Oxygen Delivery Method Room Air Room Air 08/21/22 15:00 Temperature Temperature Source Pulse Rate 72 Respiratory Rate 16 Blood Pressure 167/74 H Blood Pressure Mean 105 Pulse Ox 99 Oxygen Delivery Method Room Air Positive well nourished and well developed General Appearance ED: well developed HEENT Reports moist mucous membranes Neck supple and no JVD Resp normal respiratory effort and clear to auscultation bilaterally Cardio regular rate and regular rhythm GI normal to inspection, nondistended, normoactive bowel sounds and non-tender GI Narrative: There is a distended bladder palpated on examination. There is no tenderness. There is no rebound or guarding noted. Palpation: soft Extremity normal to inspection General Extremety ED: Negative for edema or tenderness General Extremity: Negative for edema Neuro oriented x3, CN's II-XII intact bilaterally and no sensory deficits noted Sensorium / Orientation: alert Motor Exam: strength 5/5 throughout Psych mental status grossly normal Skin no rashes or lesions noted MDM MDM MDM Narrative Medical decision making narrative: Differential diagnosis includes urethral obstruction, renal failure, bladder calculus, prostatic hypertrophy, prostate cancer, and urinary tract infection. CBC will be obtained to assess for leukocytosis and anemia. Basic metabolic profile will be obtained to assess for electrolyte abnormality and renal function. Urinalysis will be obtained to assess for urinary tract infection and hematuria. History & Record Review Additional record(s) reviewed:: Prior labs Lab Data Lab results narrative: CBC was reviewed. There is a mild anemia with a hemoglobin of 12.6 hematocrit 39.1. Basic metabolic profile was reviewed. BUN was 46 and creatinine was 2.36. These are actually improved compared to previous results. Urinalysis was reviewed. There is no evidence of urinary tract infection or hematuria. Labs: Laboratory Results - last 24 hr 08/21/22 08/21/22 08/21/22 11:56 11:56 11:56 WBC 6.0 RBC 4.30 L Hgb 12.6 L Hct 39.1 L MCV 90.9 MCH 29.3 MCHC 32.2 RDW Std Deviation 41.5 RDW Coeff of Jody 12.5 Plt Count 190 MPV 10.9 Immature Gran % (Auto) 0.500 Neut % (Auto) 67.7 Lymph % (Auto) 22.3 Worth % (Auto) 8.0 Eos % (Auto) 0.8 Baso % (Auto) 0.7 Absolute Neuts (auto) 4.1 Absolute Lymphs (auto) 1.34 Nucleated RBC % 0 Sodium 140 Potassium 3.9 Chloride 106 Carbon Dioxide 27.0 Anion Gap 7 BUN 46 H Creatinine 2.36 H Estim Creat Clear Calc 23.44 Est GFR (MDRD) Af Amer 35 L Est GFR (MDRD) Non-Af 29 L BUN/Creatinine Ratio 19.5 Glucose 134 H Calcium 9.6 Urine Color Yellow Urine Clarity Clear Urine pH 6.5 Ur Specific Lowber 1.010 Urine Protein Negative Urine Glucose (UA) Normal Urine Ketones Negative Urine Occult Blood Negative Urine Nitrite Negative Urine Bilirubin Negative Urine Urobilinogen Normal Ur Leukocyte Esterase 25 H Urine RBC 0 SEEN Urine WBC 0-5 SEEN Ur Squamous Epith Cells 0 SEEN Urine Bacteria 0 SEEN Urine Mucus 0 SEEN Treatment and Re-Evaluation :: Peng catheter was placed. Patient had 3.375 L of urine removed. Patient feels better on reevaluation. Peng catheter was removed. Patient was instructed to follow-up with his primary care physician in 3 to 5 days. Patient was instructed return if any further urinary retention. Patient understood and was agreeable with the plan. All questions were answered. Discharge Plan Triage Chief Complaint: Complaint ED Provider: Samson Velasco Dx/Rx/DC Orders Clinical Impression: Urinary retention, Essential hypertension Instructions: ED Urinary Retention, Male Prescriptions: No Action amlodipine [Norvasc] 5 mg tablet 5 mg PO DAILY Qty: 30 11RF carvedilol 12.5 mg tablet 12.5 mg PO BID Qty: 60 3RF Primary Care Provider: Care Physician,No Primary Referrals: Care Physician,No Primary [Primary Care Provider] - Doctor,Your [Non-Staff] - 3-5 Days Disposition Disposition: Home, Self Care Discharge Date/Time: 08/21/22 15:20
[2022-08-21 12:26] LABS: Bacteria 0 SEEN /hpf (None Seen); Mucous, Urine 0 SEEN /hpf (<or=2+); Red Blood Cells-Urine 0 SEEN /hpf (0-5); Squamous Epithelial Cells - UA 0 SEEN /hpf (0-5)
[2022-08-21 12:29] LABS: Absolute Lymphocyte Count 1.34 X10^3/uL (0.83-4.51); Absolute Neutrophil Count 4.1 X10^3/uL (2.0-7.7); Basophil# 0.04 X10^3/uL; Basophil% 0.7 % (0-1); Color, Urine Yellow (Yellow); Eosinophil# 0.05 X10^3/uL; Eosinophils% 0.8 % (0-5); Glucose, Dipstick Normal (Normal); Hematocrit 39.1 % (40-54); Hemoglobin 12.6 g/dL (13.0-16.5); Ketone-Dipstick Negative (Negative); Leukocyte Esterase-Dipstick 25 /ul (Negative); Lymphocyte # 1.34 X10^3/ul (0.83-4.51); Lymphocyte % 22.3 % (19-41); Mean Corp Hgb Conc 32.2 g/dL (32-36); Mean Corpuscular Hgb 29.3 pg (27.0-32.0); Mean Corpuscular Volume 90.9 fL (80-94); Mean Platelet Vol. 10.9 fl (6.2-12.0); Monocyte# 0.48 X10^3/uL; NRBC Flagged by Analyzer 0 % (0-5); Neutrophil # 4.07 X10^3/uL (2.7-7.7); Neutrophil % 67.7 % (47-70); Nitrite-Dipstick Negative (Negative); Occult Blood-Urine Negative /ul (Negative); Platelet Count 190 K/mm3 (150-450); Protein-Dipstick Negative (Negative); RBC Distribution Width CV 12.5 % (11.6-14.6); RBC Distribution Width SD 41.5 fl (35.1-43.9); Urine Bilirubin Dipstick Negative (Negative); Urine Clarity Clear (Clear); Urine Urobilinogen Normal (Normal); Urine pH 6.5 (5.0 - 8.0)
[2022-08-21 12:42] LABS: Anion Gap 7 (5-15); BUN 46 mg/dL (7-18); BUN/Creat Ratio 19.5 RATIO (10-20); Calcium,Total 9.6 mg/dL (8.5-10.1); Chloride 106 mmol/L (98-107); Creatinine, Serum 2.36 mg/dL (0.70-1.30); EST Glomerular Filtration Rate 29 mL/min (>60); Est Glom Filt Rate - Afr Amer 35 mL/min (>60); Estimated Creatinine Clearance 23.44 ml/min; Glucose 134 mg/dL (74-106); Potassium 3.9 mmol/L (3.5-5.1); Sodium Level 140 mmol/L (136-145)
[2022-08-21 12:51] LABS: White Blood Cells 0-5 SEEN /hpf (0-5)
[2022-08-21 13:28] VITALS: BP 165/72; PULSE 79; RESP 18; O2SAT 97
[2022-08-21 15:00] VITALS: BP 167/74; PULSE 72; RESP 16; O2SAT 99
[2022-08-21 15:08] VITALS: BP 166/76; PULSE 83; RESP 16; TEMP 36.7; O2SAT 98
== END 2022-08-21 15:20 | disposition home or self-care (01) ==
PROVIDERS: Emergency Provider Emergency Medicine; Visit Provider Emergency Medicine
DX: R33.9 Retention of urine, unspecified (principal); E78.5 Hyperlipidemia, unspecified; I10 Essential (primary) hypertension; R93.429 Abnormal radiologic findings on diagnostic imaging of unspecified kidney
CPT/HCPCS: 51702; 76700; 80048; 81001; 85025; 99284; A4216

== ENCOUNTER → 2022-08-21 | Outpatient (CLI) | payer MEDICARE, SELFPAY ==
--- NOTE | 2022-08-21 10:21 | US_ITS ---
STUDY: ABDOMINAL ULTRASOUND REASON FOR EXAM: Male, 72 years old. Abnormal Renal arterial study TECHNIQUE: Transabdominal ultrasound was performed with real-time and static miller scale imaging. TECHNICAL QUALITY: Limited. Examination limited by bowel gas. COMPARISON: None. FINDINGS: Liver: The liver measures 16.9 cm. There is normal echogenicity of the liver. The bile ducts are within normal limits. There is hepatic color flow. The direction of portal flow is hepatopetal. There is a 2.5 cm x 2 signed by 1.7 cm cyst in the right lobe of the liver. Gallbladder: Normal distended gallbladder. The gallbladder wall measures 2.0 mm. There is a negative sonographic Yost''s sign. There is no pericholecystic fluid. There are no gallstones. Common Bile Duct (C.B.D.): The common bile duct measures 4.0 mm. Pancreas: There is nonvisualization of the pancreas due to overlying bowel gas. Spleen: Normal size of the spleen. The spleen measures 8.8 cm x 3 cm x 3 cm. Right Kidney: Normal size of the right kidney. The right kidney measures 10.7 cm x 7.2 cm x 5.8 cm. Normal renal cortex. The right cortex measures 1.3 cm. There is no demonstrated renal mass or cyst. There is severe hydronephrosis of the right kidney. Left Kidney: Normal size of the left kidney. The left kidney measures 15.1 cm x 7.3 cm x 7 cm. Normal renal cortex. The left cortex measures 1.5 cm. 2 renal cysts are seen. The larger measures 3.3 cm x 2.7 cm by 2.6 cm. There is severe hydronephrosis of the left kidney. There is a marked degree of distention of the urinary bladder. The urinary bladder volume measures 5622 mL before voiding. There is a large post void residual measuring 5136 mL. Aorta: Unremarkable I.V.C.: The IVC is patent. There is no ascites. US/Abdomen Complete IMPRESSION: Marked degree of bilateral hydronephrosis most likely secondary due to a markedly distended urinary bladder. Electronically Signed: Camacho Gomes MD at 15:32 EDT ,
== END | disposition home or self-care (01) ==
LOC: US 10:19
PROVIDERS: Referring Provider Physician Assistant Medical; Visit Provider Physician Assistant Medical
DX: R93.429 Abnormal radiologic findings on diagnostic imaging of unspecified kidney (principal)
CPT/HCPCS: 76700

== ENCOUNTER 2022-08-22 12:54 | Emergency (ER) | payer MEDICARE, SELFPAY ==
[2022-08-22 12:55] VITALS: BP 161/88; PULSE 77; RESP 18; TEMP 36; O2SAT 100; BMI 23.0
[2022-08-22 13:54] VITALS: RESP 16
[2022-08-22 14:11] LABS: Bacteria 0 SEEN /hpf (None Seen); Mucous, Urine 0 SEEN /hpf (<or=2+); Squamous Epithelial Cells - UA 0 SEEN /hpf (0-5); White Blood Cells 0 SEEN /hpf (0-5)
[2022-08-22 14:18] LABS: Absolute Lymphocyte Count 1.87 X10^3/uL (0.83-4.51); Absolute Neutrophil Count 6.2 X10^3/uL (2.0-7.7); Basophil# 0.05 X10^3/uL; Basophil% 0.6 % (0-1); Eosinophil# 0.06 X10^3/uL; Eosinophils% 0.7 % (0-5); Hematocrit 36.8 % (40-54); Lymphocyte # 1.87 X10^3/ul (0.83-4.51); Lymphocyte % 20.6 % (19-41); Mean Corp Hgb Conc 32.6 g/dL (32-36); Mean Corpuscular Hgb 29.6 pg (27.0-32.0); Mean Corpuscular Volume 90.6 fL (80-94); Mean Platelet Vol. 10.6 fl (6.2-12.0); Monocyte# 0.85 X10^3/uL; Monocyte% 9.4 % (0-10); NRBC Flagged by Analyzer 0 % (0-5); Neutrophil # 6.22 X10^3/uL (2.7-7.7); Neutrophil % 68.4 % (47-70); Platelet Count 195 K/mm3 (150-450); RBC Distribution Width CV 12.3 % (11.6-14.6); RBC Distribution Width SD 40.7 fl (35.1-43.9); Red Blood Count 4.06 M/mm3 (4.6-6.2); White Blood Count 9.1 K/mm3 (4.4-11.0)
[2022-08-22 14:21] LABS: Color, Urine Red (Yellow); Glucose, Dipstick Normal (Normal); Ketone-Dipstick 5 mg/dl (Negative); Leukocyte Esterase-Dipstick 25 /ul (Negative); Nitrite-Dipstick Negative (Negative); Occult Blood-Urine 250 /ul (Negative); Protein-Dipstick 500 mg/dl (Negative); Urine Bilirubin Dipstick Negative (Negative); Urine Clarity Turbid (Clear); Urine Urobilinogen Normal (Normal)
[2022-08-22 14:28] LABS: Red Blood Cells-Urine > 100 SEEN /hpf (0-5)
[2022-08-22 14:30] LABS: Anion Gap 5 (5-15); BUN 45 mg/dL (7-18); BUN/Creat Ratio 20.5 RATIO (10-20); Calcium,Total 9.1 mg/dL (8.5-10.1); Chloride 108 mmol/L (98-107); EST Glomerular Filtration Rate 32 mL/min (>60); Est Glom Filt Rate - Afr Amer 38 mL/min (>60); Estimated Creatinine Clearance 25.15 ml/min; Glucose 147 mg/dL (74-106); Potassium 4.2 mmol/L (3.5-5.1); Sodium Level 142 mmol/L (136-145)
--- NOTE | 2022-08-22 15:52 | EX.ED.GUMALE ---
HPI History of Present Illness Chief Complaint: Complaint Informant: patient Narrative Narrative: Patient Luisana presents as he really has not passed much of any urine since yesterday. He feels fine. He is not having pain. He is not having nausea and vomiting. He was seen here yesterday found to have a large amount of urine. This was likely chronic retention. He did have some improvement of his renal function though. He is concerned he may be obstructed again. He has not had any bleeding. He is not on any blood thinners. [facility] Medical History Cardiac murmur, unspecified Essential hypertension Hyperlipidemia Palpitations Palpitations Tachycardia Home Medications amlodipine 5 mg tablet (Norvasc) 5 mg PO DAILY #30 tabs 08/16/22 [Rx Last Taken Unknown] carvedilol 12.5 mg tablet 12.5 mg PO BID #60 tabs 08/20/22 [Rx Last Taken Unknown] Allergy/AdvReac Type Severity Reaction Status Date / Time No Known Allergies Allergy Verified 08/22/22 12:57 Family History Father CVA (cerebral vascular accident) Hypertension Mother CAD (coronary artery disease) Hypertension Myocardial infarction Surgical History History of hernia repair Social History Smoking Status: Never smoker alcohol intake: current Alcohol type: wine ROS ROS ED Constitutional Constitutional ED: Denies chills or fever(s) Cardiovascular Cardiovascular: Denies chest pain or palpitations Respiratory/Chest Respiratory/Chest: Denies cough or dyspnea Gastrointestinal Gastrointestinal: Denies abdominal pain, diarrhea, nausea or vomiting Genitourinary Genitourinary ED: Reports other Details: See history of present illness ; Denies dysuria, hematuria or urinary frequency Musculoskeletal Musculoskeletal: Denies back pain Hematologic/Lymphatic Hematologic/Lymphatic: Denies easy bleeding or easy bruising Allergic/Immunologic Allergic/Immunologic ED: Denies urticaria EXAM Physical Exam Narrative Exam Narrative: Patient awake alert sitting comfortable in bed. Nontoxic. HEENT shows moist mucous membranes. Lungs are clear. Heart is regular. I hear no murmur. Abdomen is nontender. He does appear to have a large bladder though. No herniation. does show suprapubic fullness. No CVA tenderness. Const Vital Signs: 08/22/22 12:55 08/22/22 13:54 Temperature 96.8 F L Temperature Source Temporal Pulse Rate 77 Respiratory Rate 18 16 Blood Pressure 161/88 H Blood Pressure Mean 112 Pulse Ox 100 Oxygen Delivery Method Room Air MDM MDM MDM Narrative Medical decision making narrative: Peng catheter was placed. Not almost 1700 out again today. This is less than yesterday but still quite a large amount. I explained that this catheter really needs to stay in. He did have some blood with this. So he is irrigated. He is now bringing out a little bit of pink material but overall much clear. With the blood in the urine, I did recheck his urine. His hemoglobin went from 12.6-12. White count is normal. Electrolytes show further improvement of creatinine down to 2.2. Urine is clean other than red cells. Patient does have an appointment with Dr. Avila already. Catheter will stay in. This will be converted to a leg bag. I am not seeing indication for antibiotics or other medicines at this time. Lab Data Labs: Laboratory Results - last 24 hr 08/22/22 08/22/22 08/22/22 13:52 14:06 14:06 WBC 9.1 RBC 4.06 L Hgb 12.0 L Hct 36.8 L MCV 90.6 MCH 29.6 MCHC 32.6 RDW Std Deviation 40.7 RDW Coeff of Jody 12.3 Plt Count 195 MPV 10.6 Immature Gran % (Auto) 0.300 Neut % (Auto) 68.4 Lymph % (Auto) 20.6 [place] % (Auto) 9.4 Eos % (Auto) 0.7 Baso % (Auto) 0.6 Absolute Neuts (auto) 6.2 Absolute Lymphs (auto) 1.87 Nucleated RBC % 0 Sodium 142 Potassium 4.2 Chloride 108 H Carbon Dioxide 29.0 Anion Gap 5 BUN 45 H Creatinine 2.20 H Estim Creat Clear Calc 25.15 Est GFR (MDRD) Af Amer 38 L Est GFR (MDRD) Non-Af 32 L BUN/Creatinine Ratio 20.5 H Glucose 147 H Calcium 9.1 Urine Color Red Urine Clarity Turbid Urine pH 7.0 Ur Specific Novelty 1.010 Urine Protein 500 H Urine Glucose (UA) Normal Urine Ketones 5 H Urine Occult Blood 250 H Urine Nitrite Negative Urine Bilirubin Negative Urine Urobilinogen Normal Ur Leukocyte Esterase 25 H Urine RBC > 100 SEEN Urine WBC 0 SEEN Ur Squamous Epith Cells 0 SEEN Urine Bacteria 0 SEEN Urine Mucus 0 SEEN Discharge Plan Triage Chief Complaint: Complaint ED Provider: Vincent Castellon Dx/Rx/DC Orders Clinical Impression: Acute urinary retention, Renal insufficiency Instructions: ED Peng Catheter, Care Prescriptions: No Action amlodipine [Norvasc] 5 mg tablet 5 mg PO DAILY Qty: 30 11RF carvedilol 12.5 mg tablet 12.5 mg PO BID Qty: 60 3RF Primary Care Provider: Care Physician,No Primary Referrals: Matt Avila MD [Med Staff - Active Staff] - As soon as possible Care Physician,No Primary [Primary Care Provider] - Disposition Disposition: Home, Self Care
[2022-08-22 16:11] VITALS: RESP 18
== END 2022-08-22 16:11 | disposition home or self-care (01) ==
PROVIDERS: Emergency Provider Emergency Medicine; Visit Provider Emergency Medicine
DX: R33.9 Retention of urine, unspecified (principal); R31.9 Hematuria, unspecified; I10 Essential (primary) hypertension; E78.5 Hyperlipidemia, unspecified; N28.9 Disorder of kidney and ureter, unspecified; Z79.899 Other long term (current) drug therapy
CPT/HCPCS: 51702; 80048; 81001; 85025; 99284; A4216

== ENCOUNTER → 2022-09-03 | Outpatient (CLI) | payer MEDICARE, SELFPAY ==
[2022-09-03 17:51] LABS: Absolute Lymphocyte Count 2.14 X10^3/uL (0.83-4.51); Basophil# 0.06 X10^3/uL; Basophil% 0.6 % (0-1); Eosinophil# 0.21 X10^3/uL; Eosinophils% 2.1 % (0-5); Hematocrit 40.2 % (40-54); Hemoglobin 13.1 g/dL (13.0-16.5); Lymphocyte # 2.14 X10^3/ul (0.83-4.51); Mean Corp Hgb Conc 32.6 g/dL (32-36); Mean Corpuscular Hgb 29.4 pg (27.0-32.0); Mean Corpuscular Volume 90.3 fL (80-94); Mean Platelet Vol. 10.5 fl (6.2-12.0); Monocyte# 0.77 X10^3/uL; Monocyte% 7.5 % (0-10); NRBC Flagged by Analyzer 0 % (0-5); Neutrophil # 6.97 X10^3/uL (2.7-7.7); Neutrophil % 68.3 % (47-70); Platelet Count 215 K/mm3 (150-450); RBC Distribution Width CV 12.6 % (11.6-14.6); RBC Distribution Width SD 41.2 fl (35.1-43.9); Red Blood Count 4.45 M/mm3 (4.6-6.2); White Blood Count 10.2 K/mm3 (4.4-11.0)
[2022-09-03 18:48] LABS: ALB/GLOB Ratio 1.1 RATIO (0.9-2.4); AST(SGOT) 19 U/L (15-37); Alanine Aminotransfer ALT/SGPT 35 U/L (16-61); Albumin, Serum 3.9 g/dL (3.2-5.0); Alkaline Phosphatase 67 U/L (45-117); Anion Gap 4 (5-15); BUN 27 mg/dL (7-18); BUN/Creat Ratio 17.4 RATIO (10-20); Chloride 106 mmol/L (98-107); Creatinine, Serum 1.55 mg/dL (0.70-1.30); EST Glomerular Filtration Rate 47 mL/min (>60); Est Glom Filt Rate - Afr Amer 57 mL/min (>60); Globulin 3.7 g/dL (2.2-4.2); Glucose 129 mg/dL (74-106); PSA,Total - Annual Screen 6.67 ng/mL (0.00-4.00); Potassium 3.8 mmol/L (3.5-5.1); Protein, Total 7.6 g/dL (6.4-8.2); Sodium Level 138 mmol/L (136-145); Thyroid Stim Hormone (TSH) 1.62 uIU/mL (0.358-3.74)
[2022-09-03 19:16] LABS: Hepatitis C Antibody Non-Reactive (Nonreactive); Vitamin D,25 Hydroxy 17.3 ng/mL
== END | disposition home or self-care (01) ==
LOC: POLAB3 17:02
PROVIDERS: Visit Provider Family Medicine Geriatric Medicine
DX: R53.83 Other fatigue (principal); E55.9 Vitamin D deficiency, unspecified; Z13.89 Encounter for screening for other disorder; Z12.5 Encounter for screening for malignant neoplasm of prostate
CPT/HCPCS: 36415; 80053; 82306; 84153; 84443; 85025; 86803; G0103

== ENCOUNTER → 2022-09-25 | Outpatient (CLI) | payer MEDICARE, SELFPAY ==
[2022-09-25 17:52] LABS: Protein, Urine (Random) 65.3 mg/dL (<11.9); Protein:Creat Ratio 1477 mg/g CRE (0-200)
== END | disposition home or self-care (01) ==
LOC: POLAB3 14:25
PROVIDERS: Visit Provider Internal Medicine Nephrology
DX: N17.9 Acute kidney failure, unspecified (principal)
CPT/HCPCS: 82570; 84156; 87077; 87086; 87088; 87186

== ENCOUNTER → 2022-12-01 | Outpatient (CLI) | payer MEDICARE, SELFPAY ==
[2022-12-01 08:21] LABS: Albumin, Serum 3.6 g/dL (3.2-5.0); BUN 18 mg/dL (7-18); BUN/Creat Ratio 12.9 RATIO (10-20); Calcium,Total 8.5 mg/dL (8.5-10.1); Chloride 107 mmol/L (98-107); EST Glomerular Filtration Rate 53 mL/min (>60); Est Glom Filt Rate - Afr Amer 64 mL/min (>60); Glucose 121 mg/dL (74-106); Phosphorus 2.4 mg/dL (2.5-4.9); Potassium 3.8 mmol/L (3.5-5.1); Sodium Level 139 mmol/L (136-145)
== END | disposition home or self-care (01) ==
LOC: LAB 07:03
PROVIDERS: Referring Provider Internal Medicine Nephrology; Visit Provider Internal Medicine Nephrology
DX: N17.9 Acute kidney failure, unspecified (principal)
CPT/HCPCS: 36415; 80069

== ENCOUNTER → 2023-03-11 | Outpatient (CLI) | payer MEDICARE, SELFPAY ==
[2023-03-11 11:01] LABS: Absolute Lymphocyte Count 2.07 X10^3/uL (0.83-4.51); Absolute Neutrophil Count 7.3 X10^3/uL (2.0-7.7); Basophil# 0.08 X10^3/uL; Basophil% 0.8 % (0-1); Hematocrit 46.8 % (40-54); Hemoglobin 15.2 g/dL (13.0-16.5); Lymphocyte # 2.07 X10^3/ul (0.83-4.51); Lymphocyte % 20.3 % (19-41); Mean Corp Hgb Conc 32.5 g/dL (32-36); Mean Corpuscular Hgb 28.6 pg (27.0-32.0); Mean Platelet Vol. 10.6 fl (6.2-12.0); Monocyte# 0.58 X10^3/uL; Monocyte% 5.7 % (0-10); NRBC Flagged by Analyzer 0 % (0-5); Neutrophil # 7.34 X10^3/uL (2.7-7.7); Neutrophil % 71.8 % (47-70); Platelet Count 247 K/mm3 (150-450); RBC Distribution Width CV 13.6 % (11.6-14.6); RBC Distribution Width SD 43.8 fl (35.1-43.9); Red Blood Count 5.32 M/mm3 (4.6-6.2); White Blood Count 10.2 K/mm3 (4.4-11.0)
[2023-03-11 11:15] LABS: Vitamin D,25 Hydroxy 25.5 ng/mL
[2023-03-11 11:32] LABS: AST(SGOT) 17 U/L (15-37); Alanine Aminotransfer ALT/SGPT 32 U/L (16-61); Albumin, Serum 4.1 g/dL (3.2-5.0); Alkaline Phosphatase 63 U/L (45-117); Anion Gap 6 (5-15); BUN 21 mg/dL (7-18); BUN/Creat Ratio 14.3 RATIO (10-20); Calcium,Total 8.9 mg/dL (8.5-10.1); Chloride 106 mmol/L (98-107); Creatinine, Serum 1.47 mg/dL (0.70-1.30); EST Glomerular Filtration Rate 50 mL/min (>60); Est Glom Filt Rate - Afr Amer 61 mL/min (>60); Glucose 147 mg/dL (74-106); Potassium 3.8 mmol/L (3.5-5.1); Protein, Total 8.1 g/dL (6.4-8.2); Sodium Level 139 mmol/L (136-145)
== END | disposition home or self-care (01) ==
LOC: POLAB3 09:50
PROVIDERS: Visit Provider Family Medicine Geriatric Medicine
DX: I10 Essential (primary) hypertension (principal); E55.9 Vitamin D deficiency, unspecified; R73.9 Hyperglycemia, unspecified
CPT/HCPCS: 36415; 80053; 82306; 83036; 84443; 85025

== ENCOUNTER → 2023-04-02 | Outpatient (CLI) | payer MEDICARE, SELFPAY ==
[2023-04-02 10:31] LABS: PSA,Total- Diagnostic 4.34 ng/mL (0.0-4.0)
== END | disposition home or self-care (01) ==
LOC: LAB 09:36
PROVIDERS: PCP Family Medicine Geriatric Medicine; Referring Provider Urology; Visit Provider Urology
DX: R97.20 Elevated prostate specific antigen [PSA] (principal)
CPT/HCPCS: 36415; 84153

== ENCOUNTER → 2023-06-15 | Outpatient (CLI) | payer MEDICARE, SELFPAY ==
--- OUTSIDE RECORDS SUMMARY | 2023-06-15 09:51 | XMS RPT_ITS | CCD ---
Author Name Unknown Address [address] [facility] [address] [place] [address] Organization [facility] Care Team Providers Care Clinical Account Liaison Name Role Phone Laura Coelho Unavailable Unavailable JOSE Sheikh, Columba Vázquze Unavailable Unavailabl e Laura Coelho Unavailable Unavailable CARLTON ANDERSON ([place]) Unavailable Unavailable ELIZABETH DAMON Unavailable Unavailable ELIZABETH DAMON Unavailable Unavailable CARLTON ANDERSON ([place]) Unavailable Unavailable JOSE Sheikh, Columba Vázquez Unavailable Unavailabl e Medications Completed/Discontinued Medications Medication Drug Class(es) Dates Sig (Normalized) Sig (Original) carvedilol 6.25 mg oral tablet (4 sources) alpha-Adrenergic Arely, beta-Adrenergic Arely Start: 11-22-2015 take 1 tablet by mouth twice daily COREG 6.25 MG TABS One tablet by mouth twice daily CARVEDILOL [id number] Zen Weston NP hydroCHLOROthiazide 12.5 mg / lisinopril 20 mg oral tablet (4 sources) Thiazide Diuretic, Angiotensin Converting Enzyme Inhibitor Start: 12-06-2015 take 1 tablet by mouth once daily ZESTORETIC 20-12.5 MG TABS One tablet by mouth daily LISINOPRIL-HYDRO CHLOROTHIAZIDE [id number] Zen Weston NP Problems Active Problems Problem Classification Problem Date Documented Da te Episodic/Chronic Essential hypertension (4 sources) Hypertensive disorder; Translations: [Essential (primary) hypertension] Onset: 10-26-2015 10-26-2015 Chronic Heart valve disorders (4 sources) Nonrheumatic mitral (valve) insufficiency; Translations: [Nonrheumatic mitral (valve) insufficiency] Onset: 11-04-2015 11-04-2015 Chronic Unclassified (1 source) Encounter for screening for malignant neoplasm of colon; Translations: [Encounter for screening for malignant neoplasm of colon] Onset: 11-29-2017 Episodic Past or Other Problems Problem Classification Problem Date Documented Date Episodic/Chronic Heart valve disorders (4 sources) Cardiac murmur, unspecified; Translations: [Cardiac murmur, unspecified] Onset: 10-26-2015 10-26-2015 Episodic Other circulatory disease (4 sources) Abnormal electrocardiogram [ECG] [EKG]; Translations: [Abnormal electrocardiogram [ECG] [EKG]] Onset: 10-26-2015 10-26-2015 Episodic Results Test Name Value Interpretation Reference Range Facil ity Vital Signs Date Time Vital Sign Value Performing Clinician Patricia phillips 01-14-2017 08:24-0400 BMI (Body Mass Index) 26.39 kg/m2 [facility] Work Phone: 01-14-2017 08:24-0400 BP Diastolic 90 mm[Hg] Laura Roberson [employer] [facility] Work Phone: 01-14-2017 08:24-0400 BP Diastolic 86 mm[Hg] [facility] Work Phone: 01-14-2017 08:24-0400 BP Systolic 160 mm[Hg] [facility] Work Phone: 01-14-2017 08:24-0400 BP Systolic 142 mm[Hg] Laura Robersno [employer] Work Phone: 01-14-2017 08:24-0400 Height 160.02 cm Laura Roberson [employer] [facility] Work Phone: 01-14-2017 08:24-0400 Pulse (Heart Rate) 66 /min Laura Roberson [employer] Work Phone: 01-14-2017 08:24-0400 Weight 67.59 kg Laura Roberson [employer] [facility] Work Phone: 11-22-2015 08:49-0400 BP Diastolic 100 mm[Hg] Columba Sheikh RN [place] [employer] [facility] Work Phone: 11-22-2015 08:49-0400 BP Systolic 190 mm[Hg] Columba Sheikh RN [facility] Work Phone: 11-22-2015 08:49-0400 Pulse (Heart Rate) 114 /min [facility] Work Phone: 11-22-2015 08:49-0400 Respiratory Rate 20 /min [facility] Work Phone: 11-22-2015 08:49-0400 Weight 64.41 kg JO[facility] Work Phone: 11-08-2015 09:59-0400 BMI (Body Mass Index) 25.51 kg/m2 JO[facility] Work Phone: 11-08-2015 09:59-0400 BSA (Body Surface Area) 1.68 m2 [facility] Work Phone: 11-08-2015 09:59-0400 Height 160.02 cm JOSE [facility] Work Phone: Encounters Encounter Date Encounter Type Care Provider Facility Start: 11-29-2017 End: 11-29-2017 Patient encounter ELIZABETH DAMON [facility] Start: 10-28-2017 End: 10-31-2017 Patient encounter CARLTON ANDERSON ([place]) [facility] Procedures Date Procedure Procedure Detail Performing Clinician Start: 01-14-2017 End: 01-14-2017 Dietary management education, guidance, and counseling Columba Sheikh RN Start: 01-14-2017 End: 01-14-2017 DJN Dario Oh MD Work Phone: Start: 01-14-2017 End: 01-23-2017 Echocardiography Dario Oh MD Work Phone: Start: 01-14-2017 End: 01-14-2017 Follow Up Appt 6 months Dario Oh MD Work Phone: Start: 11-09-2016 End: 01-03-2017 *Hepatic Function Panel Dario Oh MD Work Phone: Start: 11-09-2016 End: 01-03-2017 Lipid panel [AGGREGATE] Dario Oh MD Work Phone: Start: 12-06-2015 End: 12-06-2015 Follow Up BP Check Dario Oh MD Work Phone: Start: 11-22-2015 End: 11-22-2015 Follow Up BP Check Dario Oh MD Work Phone: Start: 11-08-2015 End: 11-11-2015 *Hepatic Function Panel Dario Oh MD Work Phone: Start: 11-08-2015 End: 11-08-2015 DJN Dario Oh MD Work Phone: Start: 11-08-2015 End: 11-08-2015 Follow Up Appt 1 year Kathie Morris Work Phone: Start: 11-08-2015 End: 11-11-2015 Lipid panel [AGGREGATE] Dario Oh MD Work Phone: Start: 10-26-2015 End: 10-31-2015 Echocardiography Kavita De La Paz PA-C Work Phone: Plan of Treatment Date Care Activity Detail Author Start: 08-26-2017 End: 08-26-2017 Appointment Appointment [facility] Work Phone: Start: 01-14-2017 End: 01-14-2017 Appointment Appointment [facility] Work Phone: Start: 01-14-2017 End: 01-14-2017 *Hepatic Function Panel *Hepatic Function Panel [facility] Work Phone: Start: 01-14-2017 End: 01-14-2017 JAIME SANDOVAL [facility] Work Phone: Start: 01-14-2017 End: 01-14-2017 Echocardiography Echocardiogram (complete) [facility] Work Phone: Start: 01-14-2017 End: 01-14-2017 Follow Up Appt 6 months Follow Up Appt 6 months [facility] Work Phone: Start: 01-14-2017 End: 01-14-2017 Lipid panel [AGGREGATE] *Lipid Profile CC PCP [facility] Work Phone: Start: 11-09-2016 End: 01-03-2017 *Hepatic Function Panel *Hepatic Function Panel [facility] Work Phone: Start: 11-09-2016 End: 01-03-2017 Lipid panel [AGGREGATE] *Lipid Profile CC PCP [facility] Work Phone: Start: 12-06-2015 End: 12-06-2015 Follow Up BP Check Follow Up BP Check [facility] Work Phone: Start: 11-22-2015 End: 11-22-2015 Follow Up BP Check Follow Up BP Check [facility] Work Phone: Start: 11-08-2015 End: 11-11-2015 *Hepatic Function Panel *Hepatic Function Panel [facility] Work Phone: Start: 11-08-2015 End: 11-08-2015 DJN DJN [facility] Work Phone: Start: 11-08-2015 End: 11-08-2015 Follow Up Appt 1 year Follow Up Appt 1 year [facility] Work Phone: Start: 11-08-2015 End: 11-11-2015 Lipid panel [AGGREGATE] *Lipid Profile CC PCP [facility] Work Phone: Start: 10-26-2015 End: 10-26-2015 Echocardiography Echocardiogram (complete) [facility] Work Phone: Patient Education HYPERTENSION [facility] Work Phone: Summary Purpose Family History No Family History Records Found Advance Directives No Advanced Directives Records Found Additional Source Comments (unrecognized sect ion and content) No Status Records Found INFORMATION SOURCE (unrecogn ized section and content) FOR RECORDS PERTAINING TO PATIENTS WHO ARE OR HAVE BEEN ENROLLED IN A CHEMICAL DEPENDENCY/SUBSTANCEABUSE PROGRAM, SOME INFORMATION MAY BE OMITTED. This clinical summary was aggregated from multiple sources. Caution should be exercised in using it in the provision of clinical care. This summary normalizes information from multiple sources, and as a consequence, information in this document may materially change the coding, format and clinical context of patient data. In addition, data may be omitted in some cases. CLINICAL DECISIONS SHOULD BE BASED ON THE PRIMARY CLINICAL RECORDS. [employer] [facility]. provides no warranty or guarantee of the accuracy or completeness of information in this document.
[2023-06-15 11:10] LABS: Albumin, Serum 3.6 g/dL (3.2-5.0); BUN 25 mg/dL (7-18); BUN/Creat Ratio 17.2 RATIO (10-20); Calcium,Total 8.9 mg/dL (8.5-10.1); Chloride 109 mmol/L (98-107); Creatinine, Serum 1.45 mg/dL (0.70-1.30); EST Glomerular Filtration Rate 51 mL/min (>60); Est Glom Filt Rate - Afr Amer 62 mL/min (>60); Glucose 164 mg/dL (74-106); Phosphorus 2.9 mg/dL (2.5-4.9); Potassium 3.8 mmol/L (3.5-5.1); Sodium Level 140 mmol/L (136-145)
== END | disposition home or self-care (01) ==
LOC: LAB 09:49
PROVIDERS: PCP Family Medicine Geriatric Medicine; Referring Provider Internal Medicine Nephrology; Visit Provider Internal Medicine Nephrology
DX: N18.31 Chronic kidney disease, stage 3a (principal)
CPT/HCPCS: 36415; 80069

== ENCOUNTER → 2023-09-09 | Outpatient (CLI) | payer MEDICARE, SELFPAY ==
[2023-09-09 11:34] LABS: Absolute Neutrophil Count 7.6 X10^3/uL (2.0-7.7); Basophil# 0.06 X10^3/uL; Basophil% 0.6 % (0-1); Eosinophils% 0.9 % (0-5); Hemoglobin 15.8 g/dL (13.0-16.5); Lymphocyte % 21.4 % (19-41); Mean Corp Hgb Conc 32.9 g/dL (32-36); Mean Corpuscular Hgb 28.7 pg (27.0-32.0); Mean Corpuscular Volume 87.1 fL (80-94); Mean Platelet Vol. 10.9 fl (6.2-12.0); Monocyte# 0.67 X10^3/uL; Monocyte% 6.2 % (0-10); NRBC Flagged by Analyzer 0 % (0-5); Neutrophil # 7.56 X10^3/uL (2.7-7.7); Neutrophil % 70.5 % (47-70); Platelet Count 239 K/mm3 (150-450); RBC Distribution Width SD 41.6 fl (35.1-43.9); Red Blood Count 5.51 M/mm3 (4.6-6.2); White Blood Count 10.7 K/mm3 (4.4-11.0)
[2023-09-09 11:54] LABS: Vitamin D,25 Hydroxy 28.5 ng/mL
[2023-09-09 12:03] LABS: ALB/GLOB Ratio 1.1 RATIO (0.9-2.4); AST(SGOT) 17 U/L (15-37); Alanine Aminotransfer ALT/SGPT 31 U/L (16-61); Albumin, Serum 4.1 g/dL (3.2-5.0); Alkaline Phosphatase 60 U/L (45-117); Anion Gap 8 (5-15); BUN 17 mg/dL (7-18); BUN/Creat Ratio 12.3 RATIO (10-20); Calcium,Total 8.9 mg/dL (8.5-10.1); Chloride 109 mmol/L (98-107); Creatinine, Serum 1.38 mg/dL (0.70-1.30); EST Glomerular Filtration Rate 54 mL/min (>60); Est Glom Filt Rate - Afr Amer 65 mL/min (>60); Globulin 3.9 g/dL (2.2-4.2); Glucose 151 mg/dL (74-106); Potassium 3.6 mmol/L (3.5-5.1); Sodium Level 140 mmol/L (136-145); Thyroid Stim Hormone (TSH) 1.72 uIU/mL (0.358-3.74)
[2023-09-09 12:44] LABS: Cholesterol 220 mg/dL (200); High Density Lipoprotein 48 mg/dL; Triglycerides 186 mg/dL; Very Low Density Lipoprotein 37 mg/dL (5-40)
== END | disposition home or self-care (01) ==
LOC: POLAB3 10:01
PROVIDERS: PCP Family Medicine Geriatric Medicine; Visit Provider Family Medicine Geriatric Medicine
DX: Z12.5 Encounter for screening for malignant neoplasm of prostate (principal); E55.9 Vitamin D deficiency, unspecified; I10 Essential (primary) hypertension; E78.5 Hyperlipidemia, unspecified
CPT/HCPCS: 36415; 80053; 80061; 82306; 84153; 84443; 85025; G0103

== ENCOUNTER → 2023-09-14 | Outpatient (CLI) | payer MEDICARE, SELFPAY | END | disposition home or self-care (01) | LOC: LAB 07:25 | PROVIDERS: PCP Family Medicine Geriatric Medicine; Referring Provider Nurse Practitioner; Visit Provider Nurse Practitioner | DX: R97.20 Elevated prostate specific antigen [PSA] (principal) | CPT/HCPCS: 36415; 84153 ==

== ENCOUNTER → 2023-11-05 | Outpatient (CLI) | payer MEDICARE, SELFPAY ==
--- NOTE | 2023-11-05 07:54 | ECHOD_ITS ---
Reason For Study: MITRAL VALVE PROLAPSE- MR Procedure This was a 2D Doppler, Color Flow transthoracic echocardiogram. Exam performed in department. Left Ventricle Normal LV size. Left ventricular systolic function is normal. The left ventricular ejection fraction is 60 %. Stage 1 diastolic dysfunction. No regional wall motion abnormalities noted. Right Ventricle Normal RV size. Normal systolic function. Atria Normal left atrium. Normal right atrium. Mitral Valve Posterior leaflet mitral valve prolapse. Trivial mitral valve insufficiency. Tricuspid Valve Normal tricuspid valve. Mild (1+) tricuspid valve insufficiency. Pulmonary artery systolic pressure is 34 mmHg. Aortic Valve Trisinus/trileaflet aortic valve. Mild (1+) aortic valve insufficiency. Pulmonic Valve Normal pulmonic valve. Great Vessels Normal aortic root. The pulmonary artery is normal size. Inferior vena cava collapse with respiration. Pericardium/Pleural No pericardial effusion. MMode/2D Measurements & Calculations LVIDd: 5.0 cm IVSd: 1.4 cm LVOT diam: 1.9 cm LVIDs: 3.0 cm LVPWd: 1.0 cm LVOT area: 2.8 cm2 RVDd: 3.4 cm FS: 40.5 % Ao root diam: 3.6 cm LAV(MOD-bp): 61.4 ml LVAd ap4: 22.2 cm2 LAV(MOD-bp) Indexed: 36.5 ml/m2 LVLd ap4: 7.2 cm LAV(MOD-sp2): 62.4 ml EDV(MOD-sp4): 55.9 ml LAV(MOD-sp4): 57.7 ml EDV(sp4-el): 58.6 ml LVAs ap4: 11.5 cm2 LVLs ap4: 5.8 cm ESV(MOD-sp4): 18.5 ml ESV(sp4-el): 19.1 ml EF(MOD-sp4): 66.9 % EF(sp4-el): 67.4 % LVAd ap2: 21.8 cm2 SV(MOD-sp4): 37.4 ml SV(MOD-sp2): 35.9 ml LVLd ap2: 7.2 cm EDV(MOD-sp2): 54.3 ml EDV(sp2-el): 56.0 ml LVAs ap2: 11.3 cm2 LVLs ap2: 5.7 cm ESV(MOD-sp2): 18.4 ml ESV(sp2-el): 19.0 ml EF(MOD-sp2): 66.2 % SV(sp4-el): 39.5 ml LA dimension(2D): 4.1 cm LA A4 area: 19.9 cm2 RA A4 area: 12.4 cm2 TAPSE: 2.3 cm Time Measurements MV dec time: 0.27 sec Doppler Measurements & Calculations MV E max demetrio: 70.8 cm/sec Lat Peak E' Demetrio: 11.7 cm/sec Med Peak E' Demetrio: 7.4 cm/sec MV A max demetrio: 88.2 cm/sec E/E' lat: 6.1 E/E' med: 9.5 MV E/A: 0.80 Ao V2 max: 115.1 cm/sec LV V1 max: 92.2 cm/sec MV dec slope: 265.5 cm/sec2 Ao max P.3 mmHg LV V1 max P.4 mmHg Ao V2 mean: 77.2 cm/sec LV V1 mean P.8 mmHg Ao mean P.7 mmHg LV V1 mean: 63.7 cm/sec Ao V2 VTI: 24.0 cm LV V1 VTI: 19.1 cm AV (velocity ratio): 0.80 HERNAN(I,D): 2.2 cm2 HERNAN(V,D): 2.3 cm2 SV(LVOT): 54.0 ml PA V2 max: 103.0 cm/sec TR max demetrio: 267.4 cm/sec PA max PG (full): 3.1 mmHg TR max P.6 mmHg ECHO/Echo Complete Interpretation Summary Normal LV size. Left ventricular systolic function is normal. The left ventricular ejection fraction is 60 %. Stage 1 diastolic dysfunction. Posterior leaflet mitral valve prolapse. Ordering Physician: Kavita De La Paz Referring Physician: Tyron Ivey Chi Performed By: Maribel Glover RDCS
== END | disposition home or self-care (01) ==
LOC: CVS 07:53
PROVIDERS: PCP Family Medicine Geriatric Medicine; Referring Provider Physician Assistant Medical; Visit Provider Physician Assistant Medical
DX: I34.0 Nonrheumatic mitral (valve) insufficiency (principal)
CPT/HCPCS: 93306

== ENCOUNTER 2024-03-07 07:17 | Emergency (ER) | payer MEDICARE, SELFPAY ==
[2024-03-07 07:18] VITALS: BP 177/100; PULSE 95; RESP 18; TEMP 36.6; O2SAT 96; BMI 25.3
--- NOTE | 2024-03-07 07:35 | EX.ED.UPPERE ---
HPI History of Present Illness Chief Complaint: Upper Extremity Injury Narrative Narrative: Chief complaint and HPI: 74-year-old male with history of HTN presents for evaluation of left upper extremity pain. Patient states that he was doing stretches a couple weeks ago on his bed and shortly later he developed pain in his left shoulder. He states that the pain in his left shoulder has improved but he has intermittent pain in his left upper arm. He denies any trauma or significant injury. Denies any neck pain or weakness. States he occasionally gets shooting pain but denies actual numbness. Patient has been using Advil without any significant improvement. He states he made an appointment to see the urgent care today but decided to come here instead. Denies any headache, lightheadedness, chest pain, shortness of breath, nausea, vomiting Review of systems: See HPI Medications: As listed on the chart Allergies: As listed on the chart PFSH: Per chart Vital signs: As listed on the chart. Reviewed. Physical exam: Gen: A&O x3, NAD Head: Normocephalic, atraumatic Eyes: No sclera icterus, conjunctiva clear ENT: Moist mucous membranes Neck: Trachea midline, No JVD, nontender, full range of motion CV: Regular rate Resp: Nonlabored respiration Musc: Full ROM of the entire left upper extremity in active and passive range-including shoulder, elbow, wrist, hand, fingers. Biceps intact, nontender to palpation-with movement and palpation I am unable to recreate the patient's pain, good capillary refill, sensation intact, radial/ulnar pulses plus 2 out of 4, no signs of trauma or infection, strength plus 5 out of 5 Skin: Warm, dry Neuro: Alert, oriented, grossly intact, sensation intact Psych: Cooperative, appropriate mood and affect [facility] Medical History Mitral prolapse Essential hypertension Palpitations Tachycardia Hyperlipidemia Palpitations Cardiac murmur, unspecified Home Medications ?Medication ?Instructions ?Recorded ?Last Taken ?Type cholecalciferol (vitamin D3) 25 25 mcg PO DAILY 09/20/22 Unknown History mcg (1,000 unit) capsule amlodipine 5 mg tablet (Norvasc) 5 mg PO BID #180 tabs 05/27/23 Unknown Rx carvedilol 12.5 mg tablet 12.5 mg PO BID #180 tabs 05/27/23 Unknown Rx hydralazine 50 mg tablet 50 mg PO BID #180 tabs 09/27/23 Unknown Rx sildenafil 100 mg tablet (Viagra) 100 mg PO DAILY PRN sexual 09/27/23 Unknown Rx activity #10 tabs Allergy/AdvReac Type Severity Reaction Status Date / Time No Known Allergies Allergy Verified 03/07/24 07:29 Family History Father CVA (cerebral vascular accident) Hypertension Mother CAD (coronary artery disease) Hypertension Myocardial infarction Surgical History History of hernia repair Social History Smoking Status: Never smoker alcohol intake: current Alcohol type: wine EXAM Physical Exam Const Vital Signs: 03/07/24 07:18 Temperature 97.9 F Temperature Source Oral Pulse Rate 95 Respiratory Rate 18 Blood Pressure 177/100 H Blood Pressure Mean 125 Pulse Ox 96 Oxygen Delivery Method Room Air MDM MDM MDM Narrative Medical decision making narrative: 74-year-old male presents for evaluation of left upper extremity pain after stretches several weeks ago. See physical exam findings. Physical exam is unremarkable. Patient has full range of motion. He is nontender to palpation. Normal strength. Given that patient has had no trauma or significant injury I do not suspect any fracture or dislocation especially based on physical exam. X-rays will be of no benefit. I suspect muscle strain. Patient was educated on ibuprofen as needed. He was educated on RICE therapy. Okay for IcyHot and heating pad. Patient notices that the pain is worse when trying to sleep. Will write him for a short prescription of muscle relaxers. He was educated that these can make you drowsy and not to drive or operate heavy machinery on these. He confirmed understanding. He was told to follow-up with his PCP. Given that this has been ongoing for several weeks we will refer him to orthopedics as well. He confirmed understanding Impression: 1. Left upper extremity strain 2. History of HTN Discharge Plan Triage Chief Complaint: Upper Extremity Injury ED Provider: Rogelio Landaverde Dx/Rx/DC Orders Prescriptions: No Action cholecalciferol (vitamin D3) 25 mcg (1,000 unit) capsule 25 mcg PO DAILY sildenafil [Viagra] 100 mg tablet 100 mg PO DAILY PRN (Reason: sexual activity) Qty: 10 0RF Rx Instructions: administer 30 minutes to 4 hours before activity hydralazine 50 mg tablet 50 mg PO BID Qty: 180 3RF carvedilol 12.5 mg tablet 12.5 mg PO BID Qty: 180 3RF amlodipine [Norvasc] 5 mg tablet 5 mg PO BID Qty: 180 3RF Primary Care Provider: Tyron Ivey Chi Referrals: Tyron Ivey Chi, MD [Primary Care Provider] - Print Language: Hungarian
[2024-03-07 07:51] VITALS: BP 174/91; PULSE 74; RESP 16; TEMP 36.8; O2SAT 99
== END 2024-03-07 07:54 | disposition home or self-care (01) ==
PROVIDERS: Emergency Provider Surgery; PCP Family Medicine Geriatric Medicine; Visit Provider Surgery
DX: S46.912A Strain of unspecified muscle, fascia and tendon at shoulder and upper arm level, left arm, initial encounter (principal); I10 Essential (primary) hypertension; E78.5 Hyperlipidemia, unspecified; X50.0XXA Overexertion from strenuous movement or load, initial encounter
CPT/HCPCS: 99282; A4216

== ENCOUNTER → 2024-03-10 | Outpatient (CLI) | payer MEDICARE, SELFPAY ==
--- OUTSIDE RECORDS SUMMARY | 2024-03-10 11:21 | XMS RPT_ITS | CCD ---
Author Organization [facility] Care Team Providers Care Him Coder Name Role Phone Laura Coelho Unavailable Unavailable JOSE Sheikh, Columba Vázquez Unavailable Unavailabl Laura Joshua Unavailable Unavailable CARLTON CARDONA (KIRBY) Unavailable Unavailable JUAN MANUEL DAMON Unavailable Unavailable JUAN MANUEL DAMON Unavailable Unavailable CARLTON CARDONA (KIRBY) Unavailable Unavailable JOSE Sheikh, Columba Vázquez Unavailable Unavailabl e Medications Completed/Discontinued Medications Medication Drug Class(es) Dates Sig (Normalized) Sig (Original) carvedilol 6.25 mg oral tablet (4 sources) alpha-Adrenergic Arely, beta-Adrenergic Arely Start: 11-22-2015 take 1 tablet by mouth twice daily COREG 6.25 MG TABS One tablet by mouth twice daily CARVEDILOL [id number] Carolann Weston NP hydroCHLOROthiazide 12.5 mg / lisinopril 20 mg oral tablet (4 sources) Thiazide Diuretic, Angiotensin Converting Enzyme Inhibitor Start: 12-06-2015 take 1 tablet by mouth once daily ZESTORETIC 20-12.5 MG TABS One tablet by mouth daily LISINOPRIL-HYDRO CHLOROTHIAZIDE [id number] Carolann Weston NP Start: 12-06-2015 take 1 tablet by analy th once daily ZESTORETIC 20-12.5 MG TABS One tablet by mouth daily LISINOPRIL-HYDROCHLOROTHIAZIDE [id number] Carolann Wetson NP hydroCHLOROthiazide 12.5 mg / losartan potassium 50 mg oral tablet (8 sources) Thiazide Diuretic, Angiotensin 2 Receptor Arely Start: 11-22-2015 End: 12-06-2015 take 1 tablet by mouth once daily HYZAAR 50-12.5 MG TABS One tablet by mouth daily LOSARTAN POTASSIUM-HCTZ [id number] Dario Oh MD Start: 11-22-2015 take 1 tablet by analy th once daily HYZAAR 50-12.5 MG TABS One tablet by mouth daily LOSARTAN POTASSIUM-HCTZ [id number] Dario Oh MD Start: 11-22-2015 End: 12-06-2015 take 1 tablet by mouth once daily HYZAAR 50-12.5 MG TABS One tablet by mouth daily LOSARTAN POTASSIUM-HCTZ [id number] Columba Sheikh RN lisinopril 20 mg oral tablet (16 sources) Angiotensin Converting Enzyme Inhibitor Start: 10-26-2015 take 1 tablet by mouth once daily LISINOPRIL 10 MG TABS One tablet by mouth daily LISINOPRIL [id number] Columba Sheikh RN Start: 10-26-2015 take 2 tablets by mo uth once daily LISINOPRIL 10 MG TABS Two tablets by mouth daily LISINOPRIL [id number] Columba Sheikh RN Start: 10-26-2015 End: 11-22-2015 take 1 tablet by mouth once daily LISINOPRIL 20 MG TABS One tablet by mouth daily LISINOPRIL [id number] Dario Oh MD 24 hr metoprolol succinate 25 mg extended release oral tablet (8 sources) beta-Adrenergic Arely Start: 11-08-2015 End: 11-22-2015 take 1 tablet by mouth once daily METOPROLOL SUCCINATE ER 25 MG AC55H-COQ One tablet by mouth daily METOPROLOL SUCCINATE [id number] Dario Oh MD Problems Active Problems Problem Classification Problem Date [...] Results Test Name Value Interpretation Reference Range Facility HISTORY PHYSICALon 8 HISTORY PHYSICAL HNO ID: [id number]: Juan Manuel Baxterervice: General SurgeryAuthor Type: PhysicianType: HANDPFiled: 11/29/2017 11:36 AMNote Text:HISTORY AND PHYSICAL?Carolann Veronica1950?REF ERRING PHYSICIAN: Self?CHIEF COMPLAINT: family history of colon cancer?HPI: The patient is a 67 year old male referred for endoscopy. Carolann notesa family history of colon cancer. Most recent colonoscopy was performedby Dr. Yost in 2008 with 5-year follow-up recommended at that time.Patient denies any change in bowel habits, weight changes, blood instools, black tarry stools or abdominal pain. Denies any upper GIcomplaints.?Past medical history is significant for mitral valve regurgitation,initially diagnosed a few years ago when he was being evaluated forpalpitations. Patient follows with Dr. Oh for this, has hadechocardiogram performed and was started on antihypertensives. Patientmonitors BP at home which typically runs in 120s/70s. This is noted to beelevated today in office at 180/100 and patient notes he has a history ofwhite coat syndrome and blood pressure is almost always high at officevisits, states Dr. Oh aware of this. He denies any headaches ordizziness. Denies chest pain, shortness of breathor recenthospitalization. Denies problems with sedation.??PAST MEDICAL HISTORYPAST MEDICAL HISTORYDiagnosis Date- FAMILY HX GI MALIGNANCY ?- INT HEMORRHOID W/O COMPL ?- PMH - PAST MEDICAL HISTORY OF ?? White coat hypertension??PAST SURGICAL HISTORYPAST SURGICAL HISTORYProcedure Laterality Date- COLONOSCOP W/ OR W/O BRSH SPEC ? 08/16/08? Colonoscopy- REPAIR ING HERNIA,5+Y/O,REDUCIBL ? 1999? Hernia repair, inguinal?CURRENT MEDICATIONS?Current Outpatient Prescriptions:carvedilol (COREG) 6.25 mg tablet ?lisinopril-hydrochlorot hiazide (PRINZIDE,ZESTORETIC) 20-12.5 mg per tablet?peg 3350-Electrolytes (GOLYTELY) 236-22.74-6.74 -5.86 gram suspension Take4,000 mL by mouth one time only for 1 dose.?No current facility-administered medications for this visit.?ALLERGIES: Patient has no known allergies.?PERSONAL HISTORY:SOCIAL HISTORYSocial History Marital status: Domestic Partner Spouse name: Years of education: Number of children:?Social History Main Topics Smoking status: Never Smoker? Alcohol use: Yes 10.5 oz/week Glasses of Wine (5oz): 7 per week Drug use: No?FAMILY HISTORY:FAMILY HISTORYFAMILY HISTORYProblem Relation Age of Onset- Cancer Mother ?? ? Colon- Cancer Maternal Uncle ?? ? Colon- Coronary Artery Disease Mother ?- COPD Mother ?- Stroke Father ???REVIEW OF SYMPTOMS: The review of systems data was entered by the nurse and reviewed by me?Nursing Notes:Wendie Long LPN 10/28/2017 8:01 AM SignedREVIEW OF SYSTEMS: General: The patient denies fatigue, denies weight loss, deniesweight gain, denies feeling hot, and denies feelings of cold. Eyes: The patient denies glaucoma, denies eye injury/surgery, doesnot wear glasses or contacts. Ear/Nose/Throat: The patient denies allergies, denies hayfever,denies ear infections, and denies bloody noses. Cardiovascular: The patient denies chest pain, denies heart disease,NOTES high blood pressure,denies cardiac stent, denies prior heart attack,denies irregular heart beat, denies high cholesterol, denies poorcirculation, denies heart failure, other cardiac issues, deniesclaudication, denies cold feet, denies peripheral arterial stent. Respiratory: The patient denies tuberculosis, denies pneumonia,denies frequent cough, denies pulmonary embolism, denies shortness ofbreath, and denies coughing up blood. Gastrointestinal: The patient denies difficulty swallowing, deniesacid reflux, denies ulcers, denies vomiting, denies jaundice/hepatitis,denie s gallbladder problems, denies black or tarry stools, denieshemorrhoids, denies bleeding from rectum, denies diverticulitis, deniesconstipation, denies diarrhea, denies loss of stool control, and NOTEShernias. Kidney/Bladder: The patient denies kidney stones, denies urineinfections, and denies bloody urine. Skin: The patient denies a history of skin cancer, deniesbleeding/changing moles, and denies a history of skin rash. Neurologic: The patient denies a history of epilepsy/convulsions,den ies headaches, denies head/spinal injuries, and denies stroke/TIA. Psychiatric: The patient denies psychiatric medications, deniesdepression, and denies voices, denies substance abuse. Endocrine: The patient denies thyroid disorders, denies diabetes,and denies hormonal problems. Hematologic: The patient denies a history of bruising, deniesbleeding, and denies anemia, denies blood clots. Infections: The patient NOTES a history of measles and mumps, deniesrheumatic fever, and NOTES sexually transmitted diseases. Musculoskeletal: The patient denies back pain/injury, denies backproblems, denies sciatica, denies knee/foot trouble, denies arthritis, ordenies gout.??When was patient's last Mammogram screening? N/A? Last Colonoscopy: 2008 Priyank?Wendie Long LPN?Wendie Long LPN 10/28/2017 8:24 AM SignedBP recheck 178/94.Patient does have documented elevated BP and is following up withcardiology.Patient does home BP checks which are normal.I have confirmed and edited as necessary, the PFSH and ROS obtained byothers.?PHYSICAL EXAMINATION:?General: The patient is 67 year old male, well nourished, well hydratedin no acute distress. The patient is oriented to time, place, and person.?VITALS: Blood pressure 184/102, pulse 60, weight 69.4 kg (153 lb). Bodymass index is 27.1 kg/m?.?HEENT: Normal cephalic, ataumatic, pupils are equally round, sclera areanicteric, mucous membranes are moist, oropharynx is clear. Neck has nomasses, asymmetry or lymphadenopathy.?Respira tory: Clear to auscultation and percussion. Normal respiratoryexcursion and pattern.?Cardiac: Examination is regular rate and rhythm.?Abdominal exam: Soft, nontender, with no palpable masses. Nohepatosplenomegaly. No palpable hernias.?Rectal exam: exam deferred?Extremities: no clubbing, cyanosis or edema. No adenopathy.?Other:?LABOR ATORY VALUES: As Noted?RADIOLOGIC STUDIES: As Noted?AssessmentIMPRESSI ON: encounter for screening colonoscopy. White coat hypertension?PLAN: We will plan for lower endoscopy. We discussed the risks andbenefits of the planned endoscopy. I have informed the patient thatcomplications can occur including failure to complete the endoscopy andperforation. The patient had the opportunity to ask questions concerningthe planned endoscopy. My staff has also explained the procedure to thepatient in understandable terms and has given the patient printed materialconcerning the procedure. The patient freely consents to surgery.?I plan to use golytely bowel preparation for endoscopy?Elevated BP noted today on two readings. Epic lists past history of whitecoat syndrome. Patient notes he has had this for many years. He checksBP at home, has a machine that takes his blood pressure three times andgives an average reading. He brings with him a list of recent readingswhich are in [id number]. This information forwarded to surgeon forreview.?Diagnoses: (Z12.11) Encounter for screening for malignant neoplasm ofcolon (primary encounter diagnosis)(I10) White coat syndrome with hypertension?Return to Clinic: The patient is instructed to follow-up with me 1 weekpost operatively.?? Juve Cardona PA-C [facility] NURSING PROGon 11-29-2017 NURSING PROG HNO ID: [id number]: Rosario (Rn) CAIN Adameervice: (none)Author Type: Registered NurseType: Nursing Progress NoteFiled: 11/29/2017 1:08 PMNote Text:Patient did not experience a fall prior to discharge.Patient did not experience a burn prior to discharge.Rosario Adame RN [facility] NURSING PROG HNO ID: [id number]: Khadijah Berman Rnice: (none)Author Type: Registered NurseType: Nursing Progress NoteFiled: 11/29/2017 12:15 PMNote Text:Arrived in phase II via cart. Left lateral position. Sedated, butresponds to verbal stimuli. Color normal; skin warm and dry.Respirations wnl and unlabored. Abdomen soft and with + bowel sounds inquads X 4. Family at bedside. Patient resting comfortably. Dr. Levin bedside to review procedure and recommendations. Rosario Adame RN [facility] NURSING PROG HNO ID: [id number]: Khadijah Fragoso Rnice: NursingAuthor Type: Registered NurseType: Nursing Progress NoteFiled: 11/29/2017 12:06 PMNote Text:Patient did not experience a fall within the Intraoperative area.Patient did not experience a burn within the Intraoperative area.Joann Gallagher RN [facility] NURSING PROG HNO ID: [id number]: Vinicius Berman Rn: (none)Author Type: Registered NurseType: Nursing Progress NoteFiled: 11/29/2017 11:44 AMNote Text:[facility] PRE-OP NURSING HAND OFF NOTESBAR Hand off given to Joann Gallagher RN.Hand off was communicated verbally and at the patient's bedside and allquestions were answered. FALLS/BURNSPatient did not experience a fall within the Preoperative area.Patient did not experience a burn within the Preoperative area.Rosario Adame RN [facility] PT EDon 11-29-2017 PT ED HNO ID: [id number]: Khadijah Berman Rnice: (none)Author Type: Registered NurseType: Patient EducationFiled: 11/29/2017 1:08 PMNote Text:POST OP LEARNING RESPONSEINSTRUCTION PROVIDED TO: PatientMETHOD OF INSTRUCTION: Individual instructionWritten instruction - handoutsVerbal instructionPATIENT / FAMILY RESPONSE: Information received as demonstrated byinterest and questionsFOLLOW-UP PLAN: Follow up phone call.Contact information given.SUPPLEMENTAL MATERIAL: Procedure discharge instructionsREFERRAL (RECOMMENDATION): NoneElectronically Signed By: Rosario Adame RN In Department: [facility] PT ED HNO ID: [id number]: Rosraio (Rn) CAIN Adameervice: (none)Author Type: Registered NurseType: Patient EducationFiled: 11/29/2017 11:17 AMNote Text:Discharge Instructions were reviewed pre-operatively with the patient.All questions and concerns were addressed.HARMAN Berman OP LEARNING ASSESSMENTPROCEDURE/SURG ROVERTO: GI PROCEDURES: ColonoscopyREADINESS TO LEARNCOGNITIVE ABILITY: Alert and orientedMOTIVATION TO LEARN: InterestedFAMILY SUPPORT: Unable to assess - Family not presentPATIENT LEARNS BEST BY: Multiple MethodsFACTORS AFFECTING LEARNING: NonePHYSICAL LIMITATIONS AFFECTING LEARNING: NoneElectronically Signed By: Rosario Adame RN In Department: [facility] SURGICAL PATHOLOGYon 018 SURGICAL PATHOLOGY [facility]: [id number] Physician: JUAN MANUEL DAMON ([id number]) FINAL DIAGNOSIS1. Colon polyp at 20 cm, biopsy (A) - Tubular adenoma.2. Rectal polyp, biopsy (B) - Fragments of tubular adenoma.IG/gilda 12/02/2017 Dhruv Hanna M.D., Ph.D.(Electronic Signature) SPECIMEN SUBMITTEDA: COLON, POLYP AT 20CM B: RECTAL POLYP CLINICAL DATAZ12.11A) HOT BX FORCEPSB) HOT SNAREGROSS DESCRIPTIONA. Received in formalin is one piece of decker, soft tissue measuring 0.3 x0.2 x 0.2 cm. Totally submitted in one cassette.B. Received in formalin is a segment of decker polypoid tissue measuring 0.6 x0.3 x 0.4 cm. No stalk is noted. The line of resection is noted. Thespecimen is bisected and totally submitted in cassette B1. Also received inthe same container is one piece of decker, soft tissue measuring 0.4 x 0.2 x0.1 cm. Totally submitted in cassette B2. Gross examination performed at [facility], [address] [place] [address] 11/30/2017 12:39:12 AMPatient ID #: [id number] of Report: 12/02/2017Date of Procedure: 11/29/2017Date of Receipt: 11/29/2017Submitted by: JUAN MANUEL DAMON ([id number])Location: P536Indskzcatl interpretation performed at [place] [address]. [facility] CNOVon 10-28-2017 CNOV Office Visit (GENSWS) CAROLANN GOLDBERG ([id number]) 1950 MDate Time Provider Department10/28/17 8:00 AM CARLTON CARDONA) GENSWS During your visit today, we recorded the following information about you: Pulse Blood pressure Weight 60/minute 184/102 69.4 kgWendie Long LPN 10/28/2017 8:01 AM SignedREVIEW OF SYSTEMS: General: The patient denies fatigue, denies weight loss, denies weightgain, denies feeling hot, and denies feelings of cold. Eyes: The patient denies glaucoma, denies eye injury/surgery, does notwear glasses or contacts. Ear/Nose/Throat: The patient denies allergies, denies hayfever, deniesear infections, and denies bloody noses. Cardiovascular: The patient denies chest pain, denies heart disease,NOTES high blood pressure,denies cardiac stent, denies prior heart attack,denies irregular heart beat, denies high cholesterol, denies poor circulation,denies heart failure, other cardiac issues, denies claudication, denies coldfeet, denies peripheral arterial stent. Respiratory: The patient denies tuberculosis, denies pneumonia, deniesfrequent cough, denies pulmonary embolism, denies shortness of breath, anddenies coughing up blood. Gastrointestinal: The patient denies difficulty swallowing, denies acidreflux, denies ulcers, denies vomiting, denies jaundice/hepatitis, deniesgallbladder problems, denies black or tarry stools, denies hemorrhoids, deniesbleeding from rectum, denies diverticulitis, denies constipation, deniesdiarrhea, denies loss of stool control, and NOTES hernias. Kidney/Bladder: The patient denies kidney stones, denies urineinfections, and denies bloody urine. Skin: The patient denies a history of skin cancer, deniesbleeding/changing moles, and denies a history of skin rash. Neurologic: The patient denies a history of epilepsy/convulsions, deniesheadaches, denies head/spinal injuries, and denies stroke/TIA. Psychiatric: The patient denies psychiatric medications, deniesdepression, and denies voices, denies substance abuse. Endocrine: The patient denies thyroid disorders, denies diabetes, anddenies hormonal problems. Hematologic: The patient denies a history of bruising, denies bleeding,and denies anemia, denies blood clots. Infections: The patient NOTES a history of measles and mumps, deniesrheumatic fever, and NOTES sexually transmitted diseases. Musculoskeletal: The patient denies back pain/injury, denies backproblems, denies sciatica, denies knee/foot trouble, denies arthritis, ordenies gout.When was patient's last Mammogram screening? N/A Last Colonoscopy: 2008 Richelle Long LPN 10/28/2017 8:24 AM SignedBP recheck 178/94.Patient does have documented elevated BP and is following up with cardiology.Patient does home BP checks which are normal.Carlton Cardona PA-C 10/28/2017 3:04 PM SignedHISTORY AND PHYSICALJohn Constantpresbyterian kaseman hospital2REFE ZEHRA PHYSICIAN: SelfCHIEF COMPLAINT: family history of colon cancerHPI: The patient is a 67 year old male referred for endoscopy. Carolann notes afamily history of colon cancer. Most recent colonoscopy was performed by in 2008 with 5-year follow-up recommended at that time. Patient deniesany change in bowel habits, weight changes, blood in stools, black tarry stoolsor abdominal pain. Denies any upper GI complaints.Past medical history is significant for mitral valve regurgitation, initiallydiagnosed a few years ago when he was being evaluated for palpitations.Patient follows with Dr. Oh for this, has had echocardiogram performed andwas started on antihypertensives. Patient monitors BP at home which typicallyruns in 120s/70s. This is noted to be elevated today in office at 180/100 andpatient notes he has a history of white coat syndrome and blood pressure isalmost always high at office visits, states Dr. Oh aware of this. Hedenies any headaches or dizziness. Denies chest pain, shortness of breathorrecent hospitalization. Denies problems with sedation.PAST MEDICAL HISTORYDiagnosis Date- FAMILY HX GI MALIGNANCY- INT HEMORRHOID W/O COMPL- PMH - PAST MEDICAL HISTORY OF White coat hypertensionPAST SURGICAL HISTORYProcedure Laterality Date- COLONOSCOP W/ OR W/O BRSH SPEC 08/16/08 Colonoscopy- REPAIR ING HERNIA,5+Y/O,REDUCIBL 1999 Hernia repair, inguinalCurrent Outpatient Prescriptions:carvedilol (COREG) 6.25 mg tabletlisinopril-hydroch lorothiazide (PRINZIDE,ZESTORETIC) 20-12.5 mg per tabletpeg 3350-Electrolytes (GOLYTELY) 236-22.74-6.74 -5.86 gram suspension Take4,000 mL by mouth one time only for 1 dose.No current facility-administered medications for this visit.ALLERGIES: Patient has no known allergies.PERSONAL HISTORY: Social History Marital status: Domestic Partner Spouse name: Years of education: Number of children:Social History Main Topics Smoking status: Never Smoker Alcohol use: Yes 10.5 oz/week Glasses of Wine (5oz): 7 per week Drug use: NoFAMILY HISTORY:FAMILY HISTORYProblem Relation Age of Onset- Cancer Mother Colon- Cancer Maternal Uncle Colon- Coronary Artery Disease Mother- COPD Mother- Stroke FatherREVIEW OF SYMPTOMS: The review of systems data was entered by the nurse and reviewed by Mary Ellen Notes:Wendie Long LPN 10/28/2017 8:01 AM SignedREVIEW OF SYSTEMS: General: The patient denies fatigue, denies weight loss, denies weightgain, denies feeling hot, and denies feelings of cold. Eyes: The patient denies glaucoma, denies eye injury/surgery, does notwear glasses or contacts. Ear/Nose/Throat: The patient denies allergies, denies hayfever, deniesear infections, and denies bloody noses. Cardiovascular: The patient denies chest pain, denies heart disease,NOTES high blood pressure,denies cardiac stent, denies prior heart attack,denies irregular heart beat, denies high cholesterol, denies poor circulation,denies heart failure, other cardiac issues, denies claudication, denies coldfeet, denies peripheral arterial stent. Respiratory: The patient denies tuberculosis, denies pneumonia, deniesfrequent cough, denies pulmonary embolism, denies shortness of breath, anddenies coughing up blood. Gastrointestinal: The patient denies difficulty swallowing, denies acidreflux, denies ulcers, denies vomiting, denies jaundice/hepatitis, deniesgallbladder problems, denies black or tarry stools, denies hemorrhoids, deniesbleeding from rectum, denies diverticulitis, denies constipation, deniesdiarrhea, denies loss of stool control, and NOTES hernias. Kidney/Bladder: The patient denies kidney stones, denies urineinfections, and denies bloody urine. Skin: The patient denies a history of skin cancer, deniesbleeding/changing moles, and denies a history of skin rash. Neurologic: The patient denies a history of epilepsy/convulsions, deniesheadaches, denies head/spinal injuries, and denies stroke/TIA. Psychiatric: The patient denies psychiatric medications, deniesdepression, and denies voices, denies substance abuse. Endocrine: The patient denies thyroid disorders, denies diabetes, anddenies hormonal problems. Hematologic: The patient denies a history of bruising, denies bleeding,and denies anemia, denies blood clots. Infections: The patient NOTES a history of measles and mumps, deniesrheumatic fever, and NOTES sexually transmitted diseases. Musculoskeletal: The patient denies back pain/injury, denies backproblems, denies sciatica, denies knee/foot trouble, denies arthritis, ordenies gout.When was patient's last Mammogram screening? N/A Last Colonoscopy: 2008 Richelle Long PORSCHENChejavid Long STEM PROCESSING MACHINE OPERATOR 10/28/2017 8:24 AM SignedBP recheck 178/94.Patient does have documented elevated BP and is following up with cardiology.Patient does home BP checks which are normal.I have confirmed and edited as necessary, the PFSH and ROS obtained by others.PHYSICAL EXAMINATION:General: The patient is 67 year old male, well nourished, well hydrated in noacute distress. The patient is oriented to time, place, and person.VITALS: Blood pressure 184/102, pulse 60, weight 69.4 kg (153 lb). Body massindex is 27.1 kg/m?.HEENT: Normal cephalic, ataumatic, pupils are equally round, sclera areanicteric, mucous membranes are moist, oropharynx is clear. Neck has nomasses, asymmetry or lymphadenopathy.Respirat ory: Clear to auscultation and percussion. Normal respiratoryexcursion and pattern.Cardiac: Examination is regular rate and rhythm.Abdominal exam: Soft, nontender, with no palpable masses. Nohepatosplenomegaly. No palpable hernias.Rectal exam: exam deferredExtremities: no clubbing, cyanosis or edema. No adenopathy.Other:LABORAT ORY VALUES: As NotedRADIOLOGIC STUDIES: As NotedAssessmentIMPRESSIO N: encounter for screening colonoscopy. White coat hypertensionPLAN: We will plan for lower endoscopy. We discussed the risks and benefitsof the planned endoscopy. I have informed the patient that complications canoccur including failure to complete the endoscopy and perforation. The patienthad the opportunity to ask questions concerning the planned endoscopy. Nurys has also explained the procedure to the patient in understandable termsand has given the patient printed material concerning the procedure. Thepatient freely consents to surgery.I plan to use golytely bowel preparation for endoscopyElevated BP noted today on two readings. Epic lists past history of white coatsyndrome. Patient notes he has had this for many years. He checks BP at home,has a machine that takes his blood pressure three times and gives an averagereading. He brings with him a list of recent readings which are [id number]. This information forwarded to surgeon for review.Diagnoses: (Z12.11) Encounter for screening for malignant neoplasm of colon(primary encounter diagnosis)(I10) White coat syndrome with hypertensionReturn to Clinic: The patient is instructed to follow-up with me 1 week postoperatively. Ama KIRBY Armenta-CReferring Provider: SELF [[id number]]Allergies As of Date: 10/28/2017(No Known Allergies)Date Reviewed: 10/28/2017Reviewed by: Wendie Long LPN - Fully AssessedReason for Visit: family history of colon cancer [Other]Primary Visit Diagnosis:Encounter for screening for malignant neoplasm of colon [Z12.11] Other Visit Diagnosis:White coat syndrome with hypertension [I10]Order(s):COLONOSCOP Y, SCREENING, HIGH RISK [[id number]] Order #: [id number] FUTURE peg 3350-Electrolytes (GOLYTELY) 236-22.74-6.74 -5.86 gram suspensionTake 4,000 mL by mouth one time only for 1 dose.Disp: 1 BottleRfl: 0Prescriptions as of 10/28/2017 Sig: CARVEDILOL 6.25 MG TABLET LISINOPRIL 20 MG-HYDROCHLOROT* PEG 3350-ELECTROLYTES 236 GRA* Take 4,000 mL by mouth one ti*Problem List As Of Date: 10/28/2017(None)Visit Notes:>> Wendie Long LPN SatOct 28, 2017 8:01 AM Status: SignedREVIEW OF SYSTEMS: General: The patient denies fatigue, denies weight loss, deniesweight gain, denies feeling hot, and denies feelings of cold. Eyes: The patient denies glaucoma, denies eye injury/surgery, doesnot wear glasses or contacts. Ear/Nose/Throat: The patient denies allergies, denies hayfever,denies ear infections, and denies bloody noses. Cardiovascular: The patient denies chest pain, denies heart disease,NOTES high blood pressure,denies cardiac stent, denies prior heart attack,denies irregular heart beat, denies high cholesterol, denies poorcirculation, denies heart failure, other cardiac issues, deniesclaudication, denies cold feet, denies peripheral arterial stent. Respiratory: The patient denies tuberculosis, denies pneumonia,denies frequent cough, denies pulmonary embolism, denies shortness ofbreath, and denies coughing up blood. Gastrointestinal: The patient denies difficulty swallowing, deniesacid reflux, denies ulcers, denies vomiting, denies jaundice/hepatitis,denie s gallbladder problems, denies black or tarry stools, denieshemorrhoids, denies bleeding from rectum, denies diverticulitis, deniesconstipation, denies diarrhea, denies loss of stool control, and NOTEShernias. Kidney/Bladder: The patient denies kidney stones, denies urineinfections, and denies bloody urine. Skin: The patient denies a history of skin cancer, deniesbleeding/changing moles, and denies a history of skin rash. Neurologic: The patient denies a history of epilepsy/convulsions,den ies headaches, denies head/spinal injuries, and denies stroke/TIA. Psychiatric: The patient denies psychiatric medications, deniesdepression, and denies voices, denies substance abuse. Endocrine: The patient denies thyroid disorders, denies diabetes,and denies hormonal problems. Hematologic: The patient denies a history of bruising, deniesbleeding, and denies anemia, denies blood clots. Infections: The patient NOTES a history of measles and mumps, deniesrheumatic fever, and NOTES sexually transmitted diseases. Musculoskeletal: The patient denies back pain/injury, denies backproblems, denies sciatica, denies knee/foot trouble, denies arthritis, ordenies gout.When was patient's last Mammogram screening? N/A Last Colonoscopy: 2008 Richelle Long LPN>> Wendie Long LPN SatOct 28, 2017 8:23 AM Status: SignedBP recheck 178/94.Patient does have documented elevated BP and is following up withcardiology.Patient does home BP checks which are normal.Prescriptions ordered this encounter Disp Refills Start End PEG 3350-ELECTROLYTES 236 GRAM-22.74* 1 Jasbir* 0 10/28/2017 10/28/2017 Route: ORAL Sig: Take 4,000 mL by mouth one time only for 1 dose.Follow-up and Disposition History RecordedEncounter Number: [id number] Status:Closed by CARLTON CARDONA PA-C on 10/28/17 [facility] HOSPon 10-28-2017 Weight Patient:Carolann Wilson MRN: Height:5' 3 (1.6 m)Weight:No patient weight recorded within the last 30 days.Outpatient Medications as of 11/29/17:carvedilol (COREG) 6.25 mg tabletlisinopril-hydroch lorothiazide (PRINZIDE,ZESTORETIC) 20-12.5 mg per tabletAdmission/Clinic Administered Medications as of 11/29/17:lactated ringers infusionProblem List:No problem list on file for this patient.Allergies:No Known AllergiesDate Verified:11/29/17Lab ValuesNo results within the last 30 days for the following basenames: K,HCTNo progress notes entered within the past 30 days [facility] PROGRESSon 10-28-2017 Protein HNO ID: [id number]: Carlton Perry) GrafService: (none)Author Type: Physician AssistantType: Progress NotesFiled: 10/28/2017 3:04 PMNote Text:HISTORY AND PHYSICALJohn Veronica2REFE RRING PHYSICIAN: SelfCHIEF COMPLAINT: family history of colon cancerHPI: The patient is a 67 year old male referred for endoscopy. Carolann cary family history of colon cancer. Most recent colonoscopy was performedby Dr. Yost in 2008 with 5-year follow-up recommended at that time.Patient denies any change in bowel habits, weight changes, blood instools, black tarry stools or abdominal pain. Denies any upper GIcomplaints.Past medical history is significant for mitral valve regurgitation,initially diagnosed a few years ago when he was being evaluated forpalpitations. Patient follows with Dr. Oh for this, has hadechocardiogram performed and was started on antihypertensives. Patientmonitors BP at home which typically runs in 120s/70s. This is noted to beelevated today in office at 180/100 and patient notes he has a history ofwhite coat syndrome and blood pressure is almost always high at officevisits, states Dr. Oh aware of this. He denies any headaches ordizziness. Denies chest pain, shortness of breathor recenthospitalization. Denies problems with sedation.PAST MEDICAL HISTORYDiagnosis Date- FAMILY HX GI MALIGNANCY- INT HEMORRHOID W/O COMPL- PMH - PAST MEDICAL HISTORY OF White coat hypertensionPAST SURGICAL HISTORYProcedure Laterality Date- COLONOSCOP W/ OR W/O BRSH SPEC 08/16/08 Colonoscopy- REPAIR ING HERNIA,5+Y/O,REDUCIBL 1999 Hernia repair, inguinalCurrent Outpatient Prescriptions:carvedilol (COREG) 6.25 mg tabletlisinopril-hydroch lorothiazide (PRINZIDE,ZESTORETIC) 20-12.5 mg per tabletpeg 3350-Electrolytes (GOLYTELY) 236-22.74-6.74 -5.86 gram suspension Take4,000 mL by mouth one time only for 1 dose.No current facility-administered medications for this visit.ALLERGIES: Patient has no known allergies.PERSONAL HISTORY: Social History Marital status: Domestic Partner Spouse name: Years of education: Number of children:Social History Main Topics Smoking status: Never Smoker Alcohol use: Yes 10.5 oz/week Glasses of Wine (5oz): 7 per week Drug use: NoFAMILY HISTORY:FAMILY HISTORYProblem Relation Age of Onset- Cancer Mother Colon- Cancer Maternal Uncle Colon- Coronary Artery Disease Mother- COPD Mother- Stroke FatherREVIEW OF SYMPTOMS: The review of systems data was entered by the nurse and reviewed by Mary Ellen Notes:Wendie Long LPN 10/28/2017 8:01 AM SignedREVIEW OF SYSTEMS: General: The patient denies fatigue, denies weight loss, deniesweight gain, denies feeling hot, and denies feelings of cold. Eyes: The patient denies glaucoma, denies eye injury/surgery, doesnot wear glasses or contacts. Ear/Nose/Throat: The patient denies allergies, denies hayfever,denies ear infections, and denies bloody noses. Cardiovascular: The patient denies chest pain, denies heart disease,NOTES high blood pressure,denies cardiac stent, denies prior heart attack,denies irregular heart beat, denies high cholesterol, denies poorcirculation, denies heart failure, other cardiac issues, deniesclaudication, denies cold feet, denies peripheral arterial stent. Respiratory: The patient denies tuberculosis, denies pneumonia,denies frequent cough, denies pulmonary embolism, denies shortness ofbreath, and denies coughing up blood. Gastrointestinal: The patient denies difficulty swallowing, deniesacid reflux, denies ulcers, denies vomiting, denies jaundice/hepatitis,denie s gallbladder problems, denies black or tarry stools, denieshemorrhoids, denies bleeding from rectum, denies diverticulitis, deniesconstipation, denies diarrhea, denies loss of stool control, and NOTEShernias. Kidney/Bladder: The patient denies kidney stones, denies urineinfections, and denies bloody urine. Skin: The patient denies a history of skin cancer, deniesbleeding/changing moles, and denies a history of skin rash. Neurologic: The patient denies a history of epilepsy/convulsions,den ies headaches, denies head/spinal injuries, and denies stroke/TIA. Psychiatric: The patient denies psychiatric medications, deniesdepression, and denies voices, denies substance abuse. Endocrine: The patient denies thyroid disorders, denies diabetes,and denies hormonal problems. Hematologic: The patient denies a history of bruising, deniesbleeding, and denies anemia, denies blood clots. Infections: The patient NOTES a history of measles and mumps, deniesrheumatic fever, and NOTES sexually transmitted diseases. Musculoskeletal: The patient denies back pain/injury, denies backproblems, denies sciatica, denies knee/foot trouble, denies arthritis, ordenies gout.When was patient's last Mammogram screening? N/A Last Colonoscopy: 2008 Richelle Long LPN 10/28/2017 8:24 AM SignedBP recheck 178/94.Patient does have documented elevated BP and is following up withcardiology.Patient does home BP checks which are normal.I have confirmed and edited as necessary, the PFSH and ROS obtained byothers.PHYSICAL EXAMINATION:General: The patient is 67 year old male, well nourished, well hydratedin no acute distress. The patient is oriented to time, place, and person.VITALS: Blood pressure 184/102, pulse 60, weight 69.4 kg (153 lb). Bodymass index is 27.1 kg/m?.HEENT: Normal cephalic, ataumatic, pupils are equally round, sclera areanicteric, mucous membranes are moist, oropharynx is clear. Neck has nomasses, asymmetry or lymphadenopathy.Respirat ory: Clear to auscultation and percussion. Normal respiratoryexcursion and pattern.Cardiac: Examination is regular rate and rhythm.Abdominal exam: Soft, nontender, with no palpable masses. Nohepatosplenomegaly. No palpable hernias.Rectal exam: exam deferredExtremities: no clubbing, cyanosis or edema. No adenopathy.Other:LABORAT ORY VALUES: As NotedRADIOLOGIC STUDIES: As NotedAssessmentIMPRESSIO N: encounter for screening colonoscopy. White coat hypertensionPLAN: We will plan for lower endoscopy. We discussed the risks andbenefits of the planned endoscopy. I have informed the patient thatcomplications can occur including failure to complete the endoscopy andperforation. The patient had the opportunity to ask questions concerningthe planned endoscopy. My staff has also explained the procedure to thepatient in understandable terms and has given the patient printed materialconcerning the procedure. The patient freely consents to surgery.I plan to use golytely bowel preparation for endoscopyElevated BP noted today on two readings. Epic lists past history of whitecoat syndrome. Patient notes he has had this for many years. He checksBP at home, has a machine that takes his blood pressure three times andgives an average reading. He brings with him a list of recent readingswhich are in [id number]/70s. This information forwarded to surgeon forreview.Diagnoses: (Z12.11) Encounter for screening for malignant neoplasm ofcolon (primary encounter diagnosis)(I10) White coat syndrome with hypertensionReturn to Clinic: The patient is instructed to follow-up with me 1 weekpost operatively. Carlton Cardona PA-C Normal [facility] Office Visiton 01-14-2017 Dietary management education, guidance, and counseling (procedure) yes Invalid Interpretation Code [facility] Work Phone: [phone] Documentation of current medications (procedure) Done Invalid Interpretation Code [facility] Work Phone: [phone] Fall risk assessment No [facility] Work Phone: [phone] Protein mass conc Done [facility] Work Phone: [phone] Chart Maintenanceon 01-12-20 17 Left ventricular Ejection fraction 65 % [facility] Work Phone: [phone] Lab Report: Lipid Profileon 11-11-2015 Cholesterol 186 mg/dL 200 [facility] Work Phone: [phone] HDL Cholesterol 44 mg/dL [facility] Work Phone: [phone] LDL Cholesterol 106 mg/dL 0-130 [facility] Work Phone: [phone] Triglyceride 182 mg/dL [facility] Work Phone: [phone] very low density lipoproteins 36 mg/dL 5-40 [facility] Work Phone: [phone] Lab Report: Liver Profileon 11-11-2015 Alanine aminotransferase (ALT) 33 U/L 12-78 [facility] Work Phone: [phone] Albumin 4.0 g/dL 3.4-5.0 [facility] Work Phone: [phone] Alkaline phosphatase (ALP) 52 U/L Invalid Interpretation Code 50-136 [facility] Work Phone: [phone] ALP enzyme act/vol (Bld) 52 U/L 50-136 [facility] Work Phone: [phone] Aspartate aminotransferase (AST) 18 U/L 15-37 [facility] Work Phone: [phone] Bilirubin (direct) 0.16 mg/dL 0.00-0.30 [facility] Work Phone: [phone] Bilirubin (total) 0.70 mg/dL 0.20-1.00 [facility] Work Phone: [phone] Globulin 3.3 g/dL Invalid Interpretation Code 2.3-3.5 [facility] Work Phone: [phone] Globulin mass conc (S) 3.3 g/dL 2.3-3.5 [facility] Work Phone: [phone] Protein 7.3 g/dL 6.4-8.2 [facility] Work Phone: [phone] Office Visiton 11-08-2015 Documentation of current medications (procedure) Done Invalid Interpretation Code [facility] Phone: [phone] Tobacco smoking status NHIS Never smoker [facility] Work Phone: [phone] Tobacco use CPHS Never smoker Invalid Interpretation Code [facility] Work Phone: [phone] Clinical Lists Update: 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 Anion gap 5 mmol/L Invalid Interpretation Code [facility] Work Phone: [phone] Anion gap molar conc 5 mmol/L [facility] Work Phone: [phone] basophils as percent of blood leukocytes, manual count 0.4 % [facility] Work Phone: [phone] BUN/Creatinine Ratio 10.7 mg/mg [facility] Work Phone: [phone] Calcium 8.4 mg/dL Low [facility] Work Phone: [phone] Chloride 105 mmol/L [facility] Work Phone: [phone] CO2 28.0 mmol/L Invalid Interpretation Code [facility] Work Phone: [phone] CO2 ppres (BldV) 28.0 mmol/L [facility] Work Phone: [phone] Creatinine 1.12 mg/dL [facility] Work Phone: [phone] eGFR (non-black) 70 mL/min/{1.73_m2} [facility] Work Phone: [phone] eGFR (non-black) 85 mL/min/{1.73_m2} Invalid Interpretation Code [facility] Work Phone: [phone] eosinophils as percent of blood leukocytes, manual count 0.9 % [facility] Work Phone: [phone] Erythrocyte distribution width Ratio (RBC) 12.6 % [facility] Work Phone: [phone] Erythrocytes (RBC) 5.27 10*6/uL Invalid Interpretation Code [facility] Work Phone: [phone] Glomerular Filtration Rate 85 mL/min/1.73m2 [facility] Work Phone: [phone] Glucose 131 mg/dL High [facility] Work Phone: [phone] Glucose mass conc 131 mg/dL High [facility] Work Phone: [phone] Hematocrit (HCT) 47.1 % Invalid Interpretation Code [facility] Work Phone: [phone] Hematocrit Volume Fraction (Bld) 47.1 % [facility] Work Phone: [phone] Hemoglobin (HGB) 16.0 g/dL [facility] Work Phone: [phone] Lymphocytes/100 leukocytes 36.1 % Invalid Interpretation Code [facility] Work Phone: [phone] Lymphocytes/100 WBC (Bld) 36.1 % [facility] Work Phone: [phone] MCH 30.4 pg Invalid Interpretation Code [facility] Work Phone: [phone] MCH Entitic mass (RBC) 30.4 pg [facility] Work Phone: [phone] MCHC 34.0 g/dL Invalid Interpretation Code [facility] Work Phone: [phone] MCHC mass conc (RBC) 34.0 g/dL [facility] Work Phone: [phone] MCV 89.4 fL Invalid Interpretation Code [facility] Work Phone: [phone] MCV Entitic volume (RBC) 89.4 fL [facility] Work Phone: [phone] Monocytes/100 leukocytes 7.9 % Invalid Interpretation Code [facility] Work Phone: [phone] Monocytes/100 WBC (Bld) 7.9 % [facility] Work Phone: [phone] neutrophils, band form as percent of blood leukocytes, manual count 54.4 % [facility] Work Phone: [phone] Platelet mean volume Entitic volume (Bld) 10.0 fL [facility] Work Phone: [phone] Platelets 195 10*3/mm3 Invalid Interpretation Code [facility] Work Phone: [phone] Platelets #/vol (Bld) 195 10*3/mm3 [facility] Work Phone: [phone] PMV by Sherron 10.0 fL Invalid Interpretation Code [facility] Work Phone: [phone] Potassium 3.4 mmol/L Low [facility] Work Phone: [phone] RBC #/vol (Bld) 5.27 10*6/uL [facility] Work Phone: [phone] RDW-CA 12.6 % Invalid Interpretation Code [facility] Work Phone: [phone] Sodium 138 mmol/L [facility] Work Phone: [phone] Urea nitrogen 12 mg/dL [facility] Work Phone: [phone] WBC #/vol (Bld) 7.5 10*3/uL [facility] Work Phone: [phone] WBC (Leukocytes) 7.5 10*3/uL Invalid Interpretation Code [facility] Work Phone: [phone] Vital Signs Date Time Vital Sign Value Performing Clinician Patricia phillips 01-14-2017 08:24-0400 BMI (Body Mass Index) 26.39 kg/m2 [facility] Work Phone: 01-14-2017 08:24-0400 BP Diastolic 90 mm[Hg] [facility] Work Phone: 01-14-2017 08:24-0400 BP Diastolic 86 mm[Hg] [facility] Work Phone: 01-14-2017 08:24-0400 BP Systolic 160 mm[Hg] [facility] Work Phone: 01-14-2017 08:24-0400 BP Systolic 142 mm[Hg] [facility] Work Phone: 01-14-2017 08:24-0400 Height 160.02 cm [facility] Work Phone: 01-14-2017 08:24-0400 Pulse (Heart Rate) 66 /min [facility] Work Phone: 01-14-2017 08:24-0400 Weight 67.59 kg [facility] Work Phone: 11-22-2015 08:49-0400 BP Diastolic 100 mm[Hg] [facility] Work Phone: 11-22-2015 08:49-0400 BP Systolic 190 mm[Hg] [facility] Work Phone: 11-22-2015 08:49-0400 Pulse [...] Facility Start: 11-29-2017 End: 11-29-2017 Patient encounter JUAN MANUEL DAMON [facility] Start: 10-28-2017 End: 10-31-2017 Patient encounter CARLTON CARDONA (PA) [facility] Procedures Date Procedure Procedure Detail Performing Clinician Start: 01-14-2017 End: 01-14-2017 Dietary management education, guidance, and counseling Columba Sheikh RN Start: 01-14-2017 End: 01-14-2017 JAIME Oh MD Work Phone: Start: 01-14-2017 End: [...] MD Work Phone: Start: 11-08-2015 End: 11-08-2015 JAIME Oh MD Work Phone: Start: 11-08-2015 End: [...] Phone: Start: 01-14-2017 End: 01-14-2017 Appointment Appointment [facility] Work Phone: Start: 01-14-2017 End: 01-14-2017 *Hepatic Function Panel *Hepatic Function Panel [facility] Work Phone: Start: 01-14-2017 End: 01-14-2017 JAIME SANDOVAL [facility] Work Phone: Start: 01-14-2017 End: 01-14-2017 Echocardiography Echocardiogram (complete) [facility] Work Phone: Start: 01-14-2017 End: 01-14-2017 Follow Up Appt 6 months Follow Up Appt 6 months [facility] Work Phone: Start: 01-14-2017 End: 01-14-2017 Lipid panel [AGGREGATE] *Lipid Profile CC PCP [facility] Work Phone: Start: 11-09-2016 End: 01-03-2017 *Hepatic Function Panel *Hepatic Function Panel [facility] Work Phone: Start: 11-09-2016 End: 01-03-2017 Lipid panel [AGGREGATE] *Lipid Profile CC PCP [facility] Work Phone: Start: 12-06-2015 End: 12-06-2015 Follow Up BP Check Follow Up BP Check [facility] Work Phone: Start: 11-22-2015 End: 11-22-2015 Follow Up BP Check Follow Up BP Check [facility] Work Phone: Start: 11-08-2015 End: 11-11-2015 *Hepatic Function Panel *Hepatic Function Panel [facility] Work Phone: Start: 11-08-2015 End: 11-08-2015 JAIME SANDOVAL [facility] Work Phone: Start: 11-08-2015 End: 11-08-2015 Follow Up Appt 1 year Follow Up Appt 1 year [facility] Work Phone: Start: 11-08-2015 End: 11-11-2015 Lipid panel [AGGREGATE] *Lipid Profile CC PCP [facility] Work Phone: Start: 10-26-2015 End: 10-26-2015 Echocardiography Echocardiogram (complete) [facility] Work Phone: Patient Education HYPERTENSION [facility] Work Phone: Summary Purpose Family History No Family History Records Found Advance Directives No Advanced Directives Records Found Additional Source Comments (unrecognized sect ion and content) No Status Records Found INFORMATION SOURCE (unrecogn ized section and content) DATE CREATED AUTHOR 12/03/2017 [facility] FOR RECORDS PERTAINING TO PATIENTS WHO ARE [...] BE BASED ON THE PRIMARY CLINICAL RECORDS. [facility] [employer] [facility]. provides no warranty or guarantee of the accuracy or completeness of information in this document.
[2024-03-10 12:05] LABS: Absolute Lymphocyte Count 2.01 X10^3/uL (0.83-4.51); Absolute Neutrophil Count 4.8 X10^3/uL (2.0-7.7); Basophil# 0.05 X10^3/uL; Basophil% 0.6 % (0-1); Eosinophil# 0.19 X10^3/uL; Eosinophils% 2.5 % (0-5); Hematocrit 48.2 % (40-54); Hemoglobin 15.9 g/dL (13.0-16.5); Lymphocyte # 2.01 X10^3/ul (0.83-4.51); Mean Corpuscular Hgb 28.7 pg (27.0-32.0); Mean Platelet Vol. 10.4 fl (6.2-12.0); Monocyte# 0.65 X10^3/uL; Monocyte% 8.4 % (0-10); NRBC Flagged by Analyzer 0 % (0-5); Neutrophil % 62.1 % (47-70); Platelet Count 231 K/mm3 (150-450); RBC Distribution Width CV 13.2 % (11.6-14.6); RBC Distribution Width SD 41.7 fl (35.1-43.9); Red Blood Count 5.54 M/mm3 (4.6-6.2); White Blood Count 7.7 K/mm3 (4.4-11.0)
[2024-03-10 12:32] LABS: Vitamin D,25 Hydroxy 21.3 ng/mL
[2024-03-10 12:59] LABS: ALB/GLOB Ratio 1.2 RATIO (0.9-2.4); AST(SGOT) 16 U/L (15-37); Alanine Aminotransfer ALT/SGPT 30 U/L (16-61); Albumin, Serum 4.1 g/dL (3.2-5.0); Alkaline Phosphatase 61 U/L (45-117); Anion Gap 9 (5-15); BUN 30 mg/dL (7-18); BUN/Creat Ratio 21.9 RATIO (10-20); Calcium,Total 9.2 mg/dL (8.5-10.1); Chloride 108 mmol/L (98-107); Creatinine, Serum 1.37 mg/dL (0.70-1.30); EST Glomerular Filtration Rate 54 mL/min (>60); Est Glom Filt Rate - Afr Amer 66 mL/min (>60); Globulin 3.5 g/dL (2.2-4.2); Glucose 120 mg/dL (74-106); Potassium 3.5 mmol/L (3.5-5.1); Protein, Total 7.6 g/dL (6.4-8.2); Sodium Level 140 mmol/L (136-145)
== END | disposition home or self-care (01) ==
LOC: LAB 11:04
PROVIDERS: PCP Family Medicine Geriatric Medicine; Referring Provider Family Medicine Geriatric Medicine; Visit Provider Family Medicine Geriatric Medicine
DX: I10 Essential (primary) hypertension (principal); E55.9 Vitamin D deficiency, unspecified
CPT/HCPCS: 36415; 80053; 82306; 84443; 85025

== ENCOUNTER → 2024-04-01 | Outpatient (CLI) | payer MEDICARE, SELFPAY ==
--- NOTE | 2024-04-01 12:53 | NEURO ---
NCS and/or EMG Patient Report Ordering Doctor: Tyron Ivey Chi DATE OF SERVICE: 04/01/24 Zen presents with numbness, tingling and pain in the left arm for the past 6 weeks. Electrodiagnostic findings left median motor nerve demonstrates normal distal latency, amplitude and conduction velocity. Left ulnar motor response is within normal limits. Prolonged left median sensory latency at the wrist. Borderline prolonged left median palmar latency. Normal left median and left ulnar F?waves. Needle EMG testing was performed the left upper limb. All muscles tested showed no evidence of denervation with normal motor unit action potentials. Electrodiagnostic impression: This is an abnormal study 1. Electrodiagnostic findings suggestive of left-sided median mononeuropathy. This consistent with a mild left carpal tunnel syndrome. 2. No electrodiagnostic evidence is noted for cervical radiculopathy. Multi Select Codes Neurology Neurology Interp Codes: 89790-12 Musc test done w/n test comp (interp) and 71254-56 Nrv cndj test 7-8 studies (interp)
== END | disposition home or self-care (01) ==
LOC: PSN 10:38
PROVIDERS: PCP Family Medicine Geriatric Medicine; Referring Provider Family Medicine Geriatric Medicine; Visit Provider Family Medicine Geriatric Medicine
DX: M79.602 Pain in left arm (principal)
CPT/HCPCS: 95886; 95910

== ENCOUNTER 2024-04-10 18:33 | Emergency (ER) | payer MEDICARE, SELFPAY ==
[2024-04-10 18:34] VITALS: BP 170/92; PULSE 94; RESP 18; TEMP 36.3; O2SAT 98; BMI 26.2
--- NOTE | 2024-04-10 19:53 | EX.ED.UPPERE ---
HPI History of Present Illness Chief Complaint: Upper Extremity Injury Informant: patient Narrative Narrative: Patient is a [id number] male presenting with right ring finger injury. Patient states this afternoon his friend who was an unsteady gait with a hug him and fell down. He fell down with him and his hand which was at his friend's head struck the ground. He has associated pain and small abrasion. Since then has had worsening swelling and bruising his ring finger as well as bruising to his right pinky finger. Denies any other injuries. He did not hit his head when he fell. No other complaints report at this time. [facility] Medical History Mitral prolapse Essential hypertension Palpitations Tachycardia Hyperlipidemia Palpitations Cardiac murmur, unspecified Home Medications ?Medication ?Instructions ?Recorded ?Last Taken ?Type cholecalciferol (vitamin D3) 25 25 mcg PO DAILY 09/20/22 Unknown History mcg (1,000 unit) capsule amlodipine 5 mg tablet (Norvasc) 5 mg PO BID #180 tabs 05/27/23 Unknown Rx carvedilol 12.5 mg tablet 12.5 mg PO BID #180 tabs 05/27/23 Unknown Rx hydralazine 50 mg tablet 50 mg PO BID #180 tabs 09/27/23 Unknown Rx sildenafil 100 mg tablet (Viagra) 100 mg PO DAILY PRN sexual 09/27/23 Unknown Rx activity #10 tabs cyclobenzaprine 5 mg tablet 5 mg PO TID PRN muscle spasm 3 03/07/24 Unknown Rx days #9 tabs Allergy/AdvReac Type Severity Reaction Status Date / Time No Known Allergies Allergy Verified 04/10/24 18:34 Family History Father CVA (cerebral vascular accident) Hypertension Mother CAD (coronary artery disease) Hypertension Myocardial infarction Surgical History History of hernia repair Social History Smoking Status: Never smoker alcohol intake: current Alcohol type: wine ROS ROS ED Constitutional Constitutional ED: Denies chills or fever(s) Gastrointestinal Gastrointestinal: Denies nausea or vomiting Musculoskeletal Musculoskeletal: Reports other Details: Right fourth and fifth finger pain Integumentary Reports Abrasions and other Details: Bruising to right fourth and fifth fingers Neurologic Neurologic: Denies paresthesias or weakness Psychiatric Psychiatric: Reports anxiety Hematologic/Lymphatic Hematologic/Lymphatic: Denies easy bleeding or easy bruising EXAM Physical Exam Const Vital Signs: 04/10/24 18:34 Temperature 97.3 F L Temperature Source Oral Pulse Rate 94 Respiratory Rate 18 Blood Pressure 170/92 H Blood Pressure Mean 118 Pulse Ox 98 Oxygen Delivery Method Room Air Positive well nourished and well developed General Appearance ED: well developed and NAD HEENT Reports moist mucous membranes normocephalic and atraumatic Neck supple Chest Wall inspection of chest normal Resp normal respiratory effort and clear to auscultation bilaterally Cardio regular rate and regular rhythm Extremity full ROM Extremity Narrative: No deformity of the extremities. Normal extension and flexion of the fingers specifically the right fourth and fifth finger. There is soft tissue swelling of the right fourth proximal phalanx as well as some ecchymosis noted throughout the fourth and fifth fingers. Normal nailbeds. No signs of flexor tendon injury, swan-neck deformity or mallet finger. Psych mental status grossly normal Skin Skin Narrative: Tiny superficial abrasion noted to the dorsal aspect of the right fourth proximal phalanx. There is 3 Banded ring that is stuck on the right ring finger. MDM MDM MDM Narrative Medical decision making narrative: Patient is evaluated for injury to his right hand. There is associated swelling and patient cannot get the ring off of his right ring finger. Multiple attempts made to remove the ring and ultimately compression device from the ring removal kit utilized with success. Ring removed. X-ray obtained afterwards does not show any underlying fracture reviewed by myself. Patient counseled on localized care including icing, elevation and [id number] NSAIDs. He verbalized agreement or stands plan. Discharged home in stable condition. Given return precautions. Is neuro vastly intact. As normal range of motion of his fingers. Discharge Plan Triage Chief Complaint: Upper Extremity Injury ED Provider: Radha Walter Dx/Rx/DC Orders Clinical Impression: Ring or other jewelry causing external constriction, initial encounter, Contusion of hand, right Instructions: ED Hand Contusion Prescriptions: No Action cholecalciferol (vitamin D3) 25 mcg (1,000 unit) capsule 25 mcg PO DAILY sildenafil [Viagra] 100 mg tablet 100 mg PO DAILY PRN (Reason: sexual activity) Qty: 10 0RF Rx Instructions: administer 30 minutes to 4 hours before activity hydralazine 50 mg tablet 50 mg PO BID Qty: 180 3RF cyclobenzaprine 5 mg tablet 5 mg PO TID PRN (Reason: muscle spasm) 3 Days Qty: 9 0RF carvedilol 12.5 mg tablet 12.5 mg PO BID Qty: 180 3RF amlodipine [Norvasc] 5 mg tablet 5 mg PO BID Qty: 180 3RF Primary Care Provider: Tyron Ivey Chi Referrals: Tyron Ivey Chi, MD [Primary Care Provider] - Activity Restrictions/Additional Instructions: Apply ice 15 minutes on 15 minutes off to help with swelling. Elevate the hand when resting. Alternate ibuprofen and Tylenol as needed for pain. Print Language: Upper Sorbian Disposition Disposition: Home, Self Care
--- NOTE | 2024-04-10 20:45 | RAD_ITS ---
STUDY: X-RAY - RIGHT HAND REASON FOR EXAM: Male, 74 years old. trauma TECHNIQUE: 3 view(s) of the hand. COMPARISON: None. FINDINGS: Normal radiocarpal articulation. Normal distal radioulnar joint. Normal visualized carpal bones. Normal carpal articulations Normal carpometacarpal articulation of the thumb. Normal second through fifth carpometacarpal joints. Normal metacarpi. Normal metacarpophalangeal joint of the thumb. Normal interphalangeal joint of the thumb. Normal proximal and distal phalanges of the thumb. Normal metacarpophalangeal joints of the second through fifth fingers. Normal proximal and distal interphalangeal joints of the second through fifth fingers. There is a linear radiolucency of the distal phalangeal tuft of the fourth digit as visualized on the lateral view possibly representing hairline fracture Soft tissue swelling of the fourth digit. RAD/Hand Min 3 Views IMPRESSION: Question hairline fracture of the distal phalangeal tuft of the fourth finger Otherwise no acute fracture or other significant abnormality Electronically Signed: Connor Pascal MD at 21:26 EST Reading Location ID and State: [address] [id number] [address] Tel , Service support ,
[2024-04-10 21:09] VITALS: RESP 16
== END 2024-04-10 21:13 | disposition home or self-care (01) ==
PROVIDERS: Emergency Provider Emergency Medicine; PCP Family Medicine Geriatric Medicine; Referring Provider Emergency Medicine; Visit Provider Emergency Medicine
DX: S60.414A Abrasion of right ring finger, initial encounter (principal); I10 Essential (primary) hypertension; E78.5 Hyperlipidemia, unspecified; F41.9 Anxiety disorder, unspecified; S60.444A External constriction of right ring finger, initial encounter; S60.311A Abrasion of right thumb, initial encounter; W19.XXXA Unspecified fall, initial encounter; W49.04XA Ring or other jewelry causing external constriction, initial encounter
CPT/HCPCS: 73130; 99282

== ENCOUNTER → 2024-06-05 | Outpatient (CLI) | payer MEDICARE, SELFPAY ==
[2024-06-05 07:44] LABS: BUN 15 mg/dL (7-18); BUN/Creat Ratio 11.1 RATIO (10-20); Calcium,Total 9.3 mg/dL (8.5-10.1); Chloride 107 mmol/L (98-107); Creatinine, Serum 1.35 mg/dL (0.70-1.30); EST Glomerular Filtration Rate 55 mL/min (>60); Est Glom Filt Rate - Afr Amer 67 mL/min (>60); Glucose 125 mg/dL (74-106); Phosphorus 2.6 mg/dL (2.5-4.9); Potassium 3.6 mmol/L (3.5-5.1); Sodium Level 139 mmol/L (136-145)
== END | disposition home or self-care (01) ==
LOC: LAB 06:49
PROVIDERS: PCP Family Medicine Geriatric Medicine; Referring Provider Internal Medicine Nephrology; Visit Provider Internal Medicine Nephrology
DX: N18.31 Chronic kidney disease, stage 3a (principal)
CPT/HCPCS: 36415; 80069

== ENCOUNTER → 2024-11-23 | Outpatient (CLI) | payer MEDICARE, SELFPAY ==
[2024-11-23 09:47] LABS: Hematocrit 48.5 % (40-54); Hemoglobin 16.4 g/dL (13.0-16.5); Immature Granulocytes Count 0.050 X10^3/uL (0.0-0.0); Mean Corp Hgb Conc 33.8 g/dL (32-36); Mean Corpuscular Volume 87.1 fL (80-94); Mean Platelet Vol. 10.1 fl (6.2-12.0); NRBC Flagged by Analyzer 0 % (0-5); Platelet Count 222 K/mm3 (150-450); RBC Distribution Width CV 13.6 % (11.6-14.6); RBC Distribution Width SD 43.2 fl (35.1-43.9); Red Blood Count 5.57 M/mm3 (4.6-6.2); White Blood Count 9.5 K/mm3 (4.4-11.0)
[2024-11-23 10:35] LABS: AST(SGOT) 20 U/L (<=37); Alanine Aminotransfer ALT/SGPT 24 U/L (<=46); Albumin, Serum 4.5 g/dL (3.4-4.8); Alkaline Phosphatase 66 U/L (40-129); Anion Gap 14 (5-15); BUN 18 mg/dL (4-19); BUN/Creat Ratio 14.8 RATIO (10-20); Calcium,Total 9.2 mg/dL (7.6-11.0); Carbon Dioxide 20.1 mmol/L (21.0-32.0); Chloride 105 mmol/L (98-108); Globulin 2.8 g/dL (2.2-4.2); Glucose 132 mg/dL (70-99); Potassium 3.9 mmol/L (3.3-5.1); Vitamin D,25 Hydroxy 25.5 ng/mL (30-100)
== END | disposition home or self-care (01) ==
LOC: POLAB3 09:27
PROVIDERS: PCP Family Medicine Geriatric Medicine; Visit Provider Family Medicine Geriatric Medicine
DX: R73.09 Other abnormal glucose (principal); I10 Essential (primary) hypertension; E55.9 Vitamin D deficiency, unspecified
CPT/HCPCS: 36415; 80053; 82306; 83036; 84443; 85025

== ENCOUNTER → 2025-01-12 | Outpatient (CLI) | payer MEDICARE, SELFPAY ==
--- NOTE | 2025-01-12 13:56 | ECHOD_ITS ---
Reason For Study Reason For Study: Mitral Valve Prolapse Procedure This was a 2D Doppler, Color Flow transthoracic echocardiogram. Exam performed in department. Left Ventricle Normal LV size. The left ventricular ejection fraction is 65 %. Stage 1 diastolic dysfunction. No regional wall motion abnormalities noted. Right Ventricle Normal RV size. Normal systolic function. Atria Normal left atrium. Normal right atrium. Mitral Valve Normal mitral valve. Mild (1+) eccentric mitral valve insufficiency. Tricuspid Valve Normal tricuspid valve. Mild (1+) tricuspid valve insufficiency. Pulmonary artery systolic pressure is 27 mmHg. Aortic Valve Trisinus/trileaflet aortic valve. Trivial aortic valve insufficiency. Pulmonic Valve Normal pulmonic valve. Great Vessels Normal aortic root. The pulmonary artery is normal size. Inferior vena cava collapse with respiration. Pericardium/Pleural No pericardial effusion. MMode/2D Measurements & Calculations LVIDd: 5.6 cm IVSd: 1.4 cm Ao root diam: 3.5 cm LVIDs: 3.3 cm LVPWd: 1.0 cm RVDd: 3.5 cm FS: 42.2 % LAV(MOD-bp): 60.0 ml LVAd ap4: 27.0 cm2 SV(MOD-sp4): 50.8 ml LAV(MOD-bp) Indexed: 35.6 ml/m2 LVLd ap4: 7.7 cm SI(MOD-sp4): 30.1 ml/m2 LAV(MOD-sp2): 54.6 ml EDV(MOD-sp4): 78.7 ml LAV(MOD-sp4): 53.4 ml EDV(sp4-el): 80.1 ml LVAs ap4: 13.7 cm2 LVLs ap4: 6.1 cm ESV(MOD-sp4): 27.9 ml ESV(sp4-el): 25.9 ml EF(MOD-sp4): 64.6 % EF(sp4-el): 67.6 % SV(sp4-el): 54.2 ml LA A4 area: 20.5 cm2 LA dimension(2D): 4.3 cm RA A4 area: 14.3 cm2 TAPSE: 2.8 cm Time Measurements MV dec time: 0.28 sec Doppler Measurements & Calculations MV E max demetrio: 56.3 cm/sec Lat Peak E' Demetrio: 8.6 cm/sec Med Peak E' Demertio: 5.1 cm/sec MV A max demetrio: 86.3 cm/sec E/E' lat: 6.5 E/E' med: 11.0 MV E/A: 0.65 MV V2 max: 94.1 cm/sec MV P1/2t max demetrio: 64.1 cm/sec Ao V2 max: 96.5 cm/sec MV max P.5 mmHg MV P1/2t: 93.5 msec Ao max P.7 mmHg MV V2 mean: 44.3 cm/sec MV mean P.96 mmHg MV dec slope: 200.7 cm/sec2 MV V2 VTI: 26.3 cm MVA(P1/2t): 2.4 cm2 AI max demetrio: 326.2 cm/sec LV V1 max: 86.8 cm/sec PA V2 max: 92.8 cm/sec AI max P.6 mmHg LV V1 max P.0 mmHg AI dec slope: 103.0 cm/sec2 AI P1/2t: 928.1 msec TR max demetrio: 245.0 cm/sec TR max P.1 mmHg ECHO/Echo Complete Interpretation Summary Normal LV size. The left ventricular ejection fraction is 65 %. Stage 1 diastolic dysfunction. Mild (1+) tricuspid valve insufficiency. Trivial aortic valve insufficiency. Ordering Physician: Kavita De La Paz Referring Physician: Kavita De La Paz Performed By: Rogelio Gonzalez RCS
== END | disposition home or self-care (01) ==
LOC: CVS 13:53
PROVIDERS: PCP Family Medicine Geriatric Medicine; Referring Provider Physician Assistant Medical; Visit Provider Physician Assistant Medical
DX: I34.0 Nonrheumatic mitral (valve) insufficiency (principal); I34.1 Nonrheumatic mitral (valve) prolapse
CPT/HCPCS: 93306